=== PATIENT | female | born 1980 | race Caucasian/White ===

== ENCOUNTER → 2017-06-21 16:33 | Outpatient (CLI) | payer BC, SELFPAY ==
[2017-06-21 17:21] LABS: Hematocrit 33.8 % (37-47); Hemoglobin 11.2 g/dl (12.0-15.0); Mean Corp Hgb Conc 33.1 g/gl (32-36); Mean Corpuscular Hgb 30.9 pg (27.0-32.0); Mean Corpuscular Volume 93.1 fL (81-99); Mean Platelet Vol. 9.4 fl (6.2-12.0); Platelet Count 202 K/mm3 (150-450); Red Blood Count 3.63 M/mm3 (4.2-5.4); White Blood Count 9.2 K/mm3 (4.4-11.0)
[2017-06-21 17:22] LABS: Scan Indicated on CBC? Y/N NO
[2017-06-21 17:55] LABS: Glucose Challenge Gest 1H 50g 113 mg/dL (70-140)
== END ==
PROVIDERS: Visit Provider Obstetrics & Gynecology
DX: Z34.83 Encounter for supervision of other normal pregnancy, third trimester (principal)
CPT/HCPCS: 36415; 82950; 85027

== ENCOUNTER → 2017-08-18 10:39 | Outpatient (CLI) | payer BC, SELFPAY ==
[2017-08-18 11:12] LABS: Hematocrit 34.5 % (37-47); Hemoglobin 11.8 g/dl (12.0-15.0); Mean Corp Hgb Conc 34.2 g/gl (32-36); Mean Corpuscular Volume 93.5 fL (81-99); Platelet Count 193 K/mm3 (150-450); RBC Distribution Width CV 12.8 % (11.6-14.6); RBC Distribution Width SD 42.5 fl (35.1-43.9); Red Blood Count 3.69 M/mm3 (4.2-5.4); Scan Indicated on CBC? Y/N NO; White Blood Count 5.8 K/mm3 (4.4-11.0)
[2017-08-18 11:24] LABS: AST(SGOT) 29 U/L (15-37); Alanine Aminotransfer ALT/SGPT 35 U/L (13-56); Albumin, Serum 2.5 g/dL (3.2-5.0); Alkaline Phosphatase 100 U/L (45-117); Bilirubin, Direct 0.06 mg/dL (0.00-0.30); Globulin 4.1 g/dL (2.2-4.2); Protein, Total 6.6 g/dL (6.4-8.2)
[2017-08-18 14:04] LABS: Group B Strep DNA By PCR Negative (Negative); Internal Control PASS; Probe Check PASS; Specimen Processing Control PASS
== END ==
PROVIDERS: Visit Provider Obstetrics & Gynecology
DX: Z36.85 Encounter for antenatal screening for Streptococcus B (principal); O26.899 Other specified pregnancy related conditions, unspecified trimester; R82.90 Unspecified abnormal findings in urine; Z3A.00 Weeks of gestation of pregnancy not specified
CPT/HCPCS: 36415; 80076; 85027; 87081; 87653

== ENCOUNTER 2017-08-30 00:41 | Inpatient (IN) | payer BC, SELFPAY ==
[2017-08-30 00:40] LABS: ROM Internal Control Test YES-OK TO RESULT pt. (Internal QC); ROM Patient Test POSITIVE (Negative)
[2017-08-30] MEDS: Lactated Ringers 1,000 ML 50 ML IV ×3 (01:10→06:21)
[2017-08-30 01:25] LABS: Hematocrit 34.7 % (37-47); Hemoglobin 11.7 g/dl (12.0-15.0); Mean Corp Hgb Conc 33.7 g/gl (32-36); Mean Corpuscular Hgb 31.3 pg (27.0-32.0); Mean Corpuscular Volume 92.8 fL (81-99); Mean Platelet Vol. 9.9 fl (6.2-12.0); Platelet Count 194 K/mm3 (150-450); RBC Distribution Width CV 12.8 % (11.6-14.6); RBC Distribution Width SD 43.4 fl (35.1-43.9); Red Blood Count 3.74 M/mm3 (4.2-5.4); White Blood Count 7.1 K/mm3 (4.4-11.0)
[2017-08-30 01:26] LABS: Scan Indicated on CBC? Y/N NO
[2017-08-30 01:28] VITALS: BMI 29.3
[2017-08-30] MEDS: fentaNYL-bupivacaine (epidural) 100 ML BAG EPIDURAL ×2 (03:55→08:30)
[2017-08-30] MEDS: Ondansetron 4 MG/2 ML Vial IV (05:11)
--- NOTE | 2017-08-30 07:51 | PCM.PN.BLA ---
Progress Note 37 6/7 wk with SROM. Comfortable w/ epidural. AVSS no pitocin given EFM 130-140s avg/ mod variability. Accels noted UCs very irregular CX: /-2 (dilation called same as RN exam) patiño bulb pushing down inferior to VTX. (pushed back, reduced superior to VTX) AROM of forebag, clear mod amt A/P: 37 6/7 wk SROM. Slow progress. comfortable with epidural. Category I tracing. AROM of forebag. Pitocin prn if continued very irregular UCs. Anticipate
[2017-08-30] MEDS: Oxytocin 30 units/NS 500 ml 30 UNITS/500 ML IV.SOLN IV (08:03)
[2017-08-30] MEDS: Oxytocin 30 units/NS 500 ml 30 UNITS/500 ML IV.SOLN 334 UNITS IV (09:34)
--- NOTE | 2017-08-30 09:53 | PCM.OB.VAG ---
Vaginal Delivery Maternal Presentation: Spontaneous Rupture of Membranes 37 6/7 wk SROM Method of Induction: Pitocin, Amniotomy Amniotic Membrane Rupture Type: Spontaneous at home Amniotic Fluid Description: Clear Final STACIE: 09/14/17 Gestational age: 37 Weeks and 6 Days Date of Procedure: 08/30/17 Pre-Operative Diagnosis: 37 6/7 wk SPROM Post-Operative Diagnosis: Same Surgery/ Procedure Performed: Spontaneous Vaginal Delivery Type of Anesthesia: Epidural Presentation: Vertex, WILLY Placental Delivery Description: Spontaneous, Expressed Placenta Disposition: [facility] Cord Vessel Description: 3 Vessels Cord Entanglement: None A gender: Female (1 minute): 8 (5 minute): 9 Laceration: Midline, Perineal Extension/lac, Vaginal Extension/lac, 2nd degree Medications given after delivery: IV Pitocin Complications: None
--- NOTE | 2017-08-30 09:56 | PCM.DCVAG ---
Discharge Diet: No Restrictions Discharge Activity: May Shower, May Take a Tub Bath May resume sexual activity in: 4-6 weeks Additional Instructions: If you experience any of the following, contact your healthcare provider. Bleeding that soaks a pad every hour for 2 hours Fever 100.4 or higher Unrelieved abdominal pain Inability to urinate or burning while urinating). Visual changes Severe headache Flu-like symptoms Pain or redness in one of both of your breasts Pain, warmth, tenderness or swelling in your legs, especially the calf area Frequent nausea and vomiting Symptoms of depression or anxiety If you experience any of the following, call 911 or go to the nearest Emergency Room. Chest pain Problems breathing Seizure activity Partial or complete paralysis of a body part, slurred speech, weakness or drooping of the face, or a sudden inability to walk or hold your balance Allergies/Adverse Reactions: Allergies Penicillins Allergy (Verified 08/30/17 01:55) Hives Medications to take at Discharge biotin 1 mg capsule 1 mg PO QDAY 03/03/17 lactobacillus combination no.8 3 billion cell capsule 3,000 mmu cells PO QDAY 03/03/17 loratadine 10 mg tablet 10 mg PO QDAY PRN 03/03/17 vitamin,calcium,zblmvcvx-cblt-vpren acid tablet 1 tab PO QDAY 03/03/17 Please Follow Up With: Alberta Conrad MD - [phone] When: Call to make an appointment with your doctor in 6 weeks. Primary Care Physician: Care Physician,No Primary [Primary Care Provider] - Test Results:
--- NOTE | 2017-08-30 09:58 | DCINST_ITS ---
Discharge Diet: No Restrictions Discharge Activity: May Shower, May Take a Tub Bath May resume sexual activity in: 4-6 weeks Additional Instructions: If you experience any of the following, contact your healthcare provider. * Bleeding that soaks a pad every hour for 2 hours * Fever 100.4 or higher * Unrelieved abdominal pain * Inability to urinate or burning while urinating). * Visual changes * Severe headache * Flu-like symptoms * Pain or redness in one of both of your breasts * Pain, warmth, tenderness or swelling in your legs, especially the calf area * Frequent nausea and vomiting * Symptoms of depression or anxiety If you experience any of the following, call 911 or go to the nearest Emergency Room. * Chest pain * Problems breathing * Seizure activity * Partial or complete paralysis of a body part, slurred speech, weakness or drooping of the face, or a sudden inability to walk or hold your balance Allergies/Adverse Reactions: Allergies Penicillins Allergy (Verified 08/30/17 01:55) Hives Medications to take at Discharge biotin 1 mg capsule 1 mg PO QDAY 03/03/17 lactobacillus combination no.8 3 billion cell capsule 3,000 mmu cells PO QDAY loratadine 10 mg tablet 10 mg PO QDAY PRN 03/03/17 vitamin,calcium,luczqgnn-edtv-fhtym acid tablet 1 tab PO QDAY 03/03/17 Please Follow Up With: Alberta Conrad MD - [phone] When: Call to make an appointment with your doctor in 6 weeks. Primary Care Physician: Care Physician,No Primary [Primary Care Provider] - Test Results:
[2017-08-30] MEDS: Oxytocin 30 units/NS 500 ml 30 UNITS/500 ML IV.SOLN 167 UNITS IV (10:36)
[2017-08-30] MEDS: Prenatal Vits Tablet 1 TABLET PO (11:26)
[2017-08-30 11:28] VITALS: BP 113/56; PULSE 85; RESP 18; TEMP 37.1
[2017-08-30] MEDS: Ibuprofen 600 MG Tablet PO (11:29)
[2017-08-30 16:24] VITALS: BP 106/67; PULSE 69; RESP 16; TEMP 36.9
[2017-08-30 19:58] VITALS: BP 93/52; PULSE 70; RESP 16; TEMP 36.3; O2SAT 99
[2017-08-31 00:15] VITALS: BP 132/69; PULSE 68; RESP 16; TEMP 36.3
[2017-08-31 04:30] VITALS: BP 94/68; PULSE 64; RESP 16; TEMP 36.3
[2017-08-31 08:00] VITALS: BP 117/73; PULSE 71; RESP 16; TEMP 36.6
--- NOTE | 2017-08-31 08:34 | PCM.PN.OB ---
Subjective: POD#1 . GBS negative Pt here since just prior to [place] Sun night due to prolonged SROM and positive ROM test. Would like to go home later today if possible. Baby doing well. - Physical Exam General: Alert, Oriented x3, Cooperative, No apparent distress HEENT: Atraumatic, PERRLA Neck: Supple Abdomen: Soft - umbilical hernia noted (soft, NT, reduces), and fundus firm NT at approx 1 cm inferior to umbilicus. Neurological: Cranial nerves II-XII grossly intact Psych/Mental Status: Normal Affect Vital Signs Temp Pulse Resp BP Pulse Ox 97.4 F L 64 16 94/68 99 08/31/17 04:30 08/31/17 04:30 08/31/17 04:30 08/31/17 04:30 08/30/17 19:58 Oxygen Delivery Method Room Air Weight: 84.9 kg Body Mass Index (BMI) 29.3 Intake and Output for Last 24 Hours 08/29/17 08/30/17 08/31/17 23:59 23:59 23:59 Intake Total 3828 / 3828 Output Total 1850 / 1850 Balance 1977 / 1977 Medical Necessity - Tobacco Use Smoking Status: Never smoker Assessment/Plan All Active Problems (Last Reviewed 03/03/17 @ 16:08 by Lolis Ellington) S/P colonoscopy (Acute) S/P wisdom tooth extraction (Acute) Umbilical hernia (Acute) (Acute) Back problem (Acute) PPD#1 after prolonged SPROM at 37 6/7 wk Stable . Dischg home. RTO in 6 wk for pp check, prn sooner.
[2017-08-31 14:40] VITALS: BP 112/62; PULSE 78; RESP 18; TEMP 36.7
[2017-08-31] MEDS: Senna/Docusate Sodium 1 Tablet PO (14:45)
[2017-08-31] MEDS: Prenatal Vits Tablet 1 TABLET PO (14:47)
[2017-08-31] MEDS: Ibuprofen 600 MG Tablet PO (15:25)
[2017-08-31 19:53] VITALS: BP 131/72; PULSE 80; RESP 16; TEMP 36.9
[2017-09-01 02:00] VITALS: BP 115/66; PULSE 80; RESP 16; TEMP 36.7
--- NOTE | 2017-09-01 03:15 | NURSING ---
Taking over pt care at this time.
--- NOTE | 2017-09-01 07:13 | PCM.PN.OB ---
Subjective: PPD#2 Doing well. Breast feeding, up most of night and baby has slept twice for two hrs at a time. Ready to go home today. Objective: Sitting up in bed, holding sleeping baby - Physical Exam General: Alert, Oriented x3, Cooperative, No apparent distress Neurological: Cranial nerves II-XII grossly intact Psych/Mental Status: Normal Affect Vital Signs Temp Pulse Resp BP Pulse Ox 98.1 F 80 16 115/66 99 09/01/17 02:00 09/01/17 02:00 09/01/17 02:00 09/01/17 02:00 08/30/17 19:58 Oxygen Delivery Method Room Air Weight: 84.9 kg Body Mass Index (BMI) 29.3 Intake and Output for Last 24 Hours 08/30/17 08/31/17 09/01/17 23:59 23:59 23:59 Intake Total 3828 / 3828 Output Total 1850 / 1850 Balance 1977 / 1977 Medical Necessity - Tobacco Use Smoking Status: Never smoker Assessment/Plan All Active Problems (Last Reviewed 03/03/17 @ 16:08 by Lolis Ellington) S/P colonoscopy (Acute) S/P wisdom tooth extraction (Acute) Umbilical hernia (Acute) (Acute) Back problem (Acute) PPD# after prolonged SPROM at 37 6/7 wk Stable . Dischg home.
[2017-09-01 08:15] VITALS: BP 119/60; PULSE 83; RESP 16; TEMP 36.7; O2SAT 97
== END 2017-09-01 11:15 | disposition home or self-care (01) | DRG 775 ==
LOC: WPOUT 00:45
PROVIDERS: Obstetrics & Gynecology; Admitting Provider Obstetrics & Gynecology; Visit Provider Obstetrics & Gynecology
DX: O42.12 Full-term premature rupture of membranes, onset of labor more than 24 hours following rupture (principal); O70.1 Second degree perineal laceration during delivery; O99.52 Diseases of the respiratory system complicating childbirth; J30.2 Other seasonal allergic rhinitis; Z3A.37 37 weeks gestation of pregnancy; Z37.0 Single live birth
CPT/HCPCS: 36415; 59025; 59050; 84112; 85027; 86850; 86900; 99218; J7120; G0378; J2405

== ENCOUNTER 2017-10-07 12:27 | Day surgery (SDC) | payer BC, SELFPAY ==
[2017-10-07] VITALS (7 sets, daily range): BP systolic 107–129; BP diastolic 64–88; PULSE 65–89; RESP 14–18; TEMP 36.6–37.6; O2SAT 97–100; BMI 25.7
[2017-10-07 13:05] LABS: Hematocrit 40.3 % (37-47); Hemoglobin 13.6 g/dl (12.0-15.0); Mean Corp Hgb Conc 33.7 g/gl (32-36); Mean Corpuscular Hgb 30.6 pg (27.0-32.0); Mean Corpuscular Volume 90.8 fL (81-99); Mean Platelet Vol. 9.5 fl (6.2-12.0); Platelet Count 190 K/mm3 (150-450); RBC Distribution Width CV 11.9 % (11.6-14.6); RBC Distribution Width SD 39.2 fl (35.1-43.9); Red Blood Count 4.44 M/mm3 (4.2-5.4); White Blood Count 6.2 K/mm3 (4.4-11.0)
[2017-10-07 13:07] LABS: Scan Indicated on CBC? Y/N NO
[2017-10-07 13:11] LABS: Anion Gap 5 (5-15); BUN 17 mg/dL (7-18); Calcium,Total 8.9 mg/dL (8.5-10.1); Chloride 108 mmol/L (98-107); Creatinine, Serum 0.81 mg/dL (0.55-1.02); EST Glomerular Filtration Rate 85 mL/min (>60); Est Glom Filt Rate - Afr Amer 103 mL/min (>60); Estimated Creatinine Clearance 94.27 ml/min; Glucose 84 mg/dL (74-106); Potassium 4.1 mmol/L (3.5-5.1); Sodium Level 139 mmol/L (136-145)
[2017-10-07 13:20] LABS: Internal QC Validated? YES +Cl - CLEAR BKGD; Pregnancy, Urine Negative Negative
[2017-10-07] MEDS: Bupivacaine 0.5% PF 10 ML VIAL (13:23)
--- NOTE | 2017-10-07 14:00 | HERN_PTH ---
PATIENT: CINTHIA LEWIS LOC: [facility] U#:[id number] AGE/SX: 37/F ROOM: RE10/07/[address]: Dr. Walter Lawrence MD : 1980 BED: DIS: 10/07/2017 SPEC #: [id number] RECD: 10/08/17 10:41 STATUS: JESSICA RESimba #: [id number] АЛЕКСАНДР: 10/07/17 14:[address]: Walter Lawrence DEPT: SURGICAL PATHOLOGY RECD BY: Raúl Hughes ENTERED: 10/08/17 11:49 SP TYPE: Hernia OTHR DR: No Primary Care Phys Tissues: HERNIA Procedures: Surgery Specimen Level II HEADER OPERATION: Hernia, umbilical repair with mesh PRE-OP DIAGNOSIS: Umbilical hernia TISSUE SUBMITTED: Hernia sac contents MICROSCOPIC DIAGNOSIS Soft tissue of umbilical region, excision: Fibrofatty tissue consistent with hernia sac. AM:watson 10/11/17 MICROSCOPIC DESCRIPTION Slides are reviewed. GROSS DESCRIPTION Received in fixative is one container labeled with the patient's name and designated hernia sac contents. The specimen consists of a piece of yellow adipose tissue measuring 4 x 2.5 x 1.5 cm. Sections do not reveal any mass lesion. Watch Supervisor sections are submitted in one cassette. / SJ:rg 10/08/17 TC:5 CPT: 06758
--- NOTE | 2017-10-07 14:47 | DCINST_ITS ---
Discharge Diet: Light diet - advance as tolerated - if you have questions about your diet instructions, please talk to you doctor. Discharge Activity: May Not Drive - for 1 week or while taking narcotic pain medicine. May shower in (days): 1 Lifting Restrictions: 10 pounds Call your doctor if your incision/area has: Continuous Slow Oozing, Sudden Increased Bleeding, Increased Pain/ Swelling, Increased Redness, Foul Smelling Discharge Call your doctor if you observe: Fever of 101 or Higher Suture Line Care: Avoid Pulling/Pushing, Avoid Pinching/Bending Additional Dressing/Incision Instructions:: Change or remove dressing in 4 days. Leave steri-strips in place for 1 week. Allergies/Adverse Reactions: Allergies Penicillins Allergy (Verified 10/07/17 12:49) Hives Medications to take at Discharge lactobacillus combination no.8 3 billion cell capsule 1 cap PO QDAY 03/03/17 loratadine 10 mg tablet 10 mg PO QDAY PRN 03/03/17 vitamin,calcium,lqxibyct-ftci-apeqn acid tablet 1 tab PO QDAY 03/03/17 Hydrocodone Bitart/Apap 5-325 [[place] 5MG-325MG] 1 tablet PO Q6H PRN PRN 3 Days # 8 tablet 10/07/17 The following prescriptions were given: Hydrocodone Bitart/Apap 5-325 [[place] 5MG-325MG] 1 tablet PO Q6H PRN PRN 3 Days # 8 tablet PRN Reason: Pain Primary Care Physician: Care Physician,No Primary [Primary Care Provider] - Test Results: Test results from this visit will be discussed in further detail at your follow- up appointment, if applicable. Please Follow Up With: Walter Lawrence MD - [phone] When: Call to make an appointment to be seen in about 10 days.
--- NOTE | 2017-10-07 15:15 | PCM.OPRPT ---
Problem List (1) Umbilical hernia Status: Acute Qualifiers: Obstruction and gangrene presence: without obstruction or gangrene Report of Operation Date of Procedure: 10/07/17 Pre-Operative Diagnosis: Umbilical hernia Post-Operative Diagnosis: Umbilical hernia Surgery/Procedure Performed:: Umbilical herniorrhaphy with [address] mesh. Reference #[id number]. Lot number [employer] [id number]. Expiry date 07/27/2019 Description of Surgical Findings:: Timeout and informed consent was obtained. 37-year-old female was taken the operating. She was placed upon the table. She underwent general endotracheal intubation anesthesia. Clindamycin 900 mg given intravenous preoperatively because of penicillin allergy. The abdomen was sterilely prepped draped. Ioban draping was utilized as well. A curvilinear incision was made in the inferior aspect of the umbilicus. Sharp and blunt dissection was complete used to completely release the umbilical hernia from the umbilical skin. Circumferential dissection was performed. The hernia sac was then excised using electrocautery and complete hemostasis was intact. The defect area measured approximately 3 x 3 cm. I waited a 8 cm diameter ventral X ST mesh inserted easily. The tails were secured laterally with interrupted 0 Nurolon. The fascia was approximated midline with interrupted 0 Nurolon with sutures to just grab the mesh at that central portion. That fascia was then approximated nicely. There appeared to be very nice positional lie of the mesh and sutures. The fascia and subcu dermal tissues were anesthetized with 0.5% Marcaine. Total 30 cc was used. The skin edges were approximated with interrupted 4 Monocryl subdermal stitches. Steri-Strips Telfa OpSite dressing cottonball pressure dressing applied. Sponge and instrument and needle counts were reported to the surgeon to be correct. Blood loss minimal. Specimens hernia sac and contents. Drains none. Blood loss minimal Walter Lawrence M.D., F.A.C.S. Type of Anesthesia:: General Anesthesiologist: Henrique Pascal
--- NOTE | 2017-10-07 15:18 | OP.PCM_ITS ---
Problem List (1) Umbilical hernia Status: Acute Qualifiers: Obstruction and gangrene presence: without obstruction or gangrene Report of Operation Date of Procedure: 10/07/17 Pre-Operative Diagnosis: Umbilical hernia Post-Operative Diagnosis: Umbilical hernia Surgery/Procedure Performed:: Umbilical herniorrhaphy with [address] mesh. Reference #[id number]. Lot number [employer] [id number]. Expiry date 07/27/2019 Description of Surgical Findings:: Timeout and informed consent was obtained. 37-year-old female was taken the operating. She was placed upon the table. She underwent general endotracheal intubation anesthesia. Clindamycin 900 mg given intravenous preoperatively because of penicillin allergy. The abdomen was sterilely prepped draped. Ioban draping was utilized as well. A curvilinear incision was made in the inferior aspect of the umbilicus. Sharp and blunt dissection was complete used to completely release the umbilical hernia from the umbilical skin. Circumferential dissection was performed. The hernia sac was then excised using electrocautery and complete hemostasis was intact. The defect area measured approximately 3 x 3 cm. I waited a 8 cm diameter ventral X ST mesh inserted easily. The tails were secured laterally with interrupted 0 Nurolon. The fascia was approximated midline with interrupted 0 Nurolon with sutures to just grab the mesh at that central portion. That fascia was then approximated nicely. There appeared to be very nice positional lie of the mesh and sutures. The fascia and subcu dermal tissues were anesthetized with 0.5% Marcaine. Total 30 cc was used. The skin edges were approximated with interrupted 4 Monocryl subdermal stitches. Steri-Strips Telfa OpSite dressing cottonball pressure dressing applied. Sponge and instrument and needle counts were reported to the surgeon to be correct. Blood loss minimal. Specimens hernia sac and contents. Drains none. Blood loss minimal Walter Lawrence M.D., F.A.C.S. Type of Anesthesia:: General Anesthesiologist: Henrique Pascal
[2017-10-07] MEDS: HYDROcodone Bitartrate/Apap 5/325 Tablet PO (17:10)
== END 2017-10-07 18:20 | disposition home or self-care (01) ==
LOC: SDC 12:28 → AC 12:29
PROVIDERS: Visit Provider Surgery
PROC: 0WQF4ZZ Repair Abdominal Wall, Percutaneous Endoscopic Approach (ICD-10-PCS; CPT 49585; principal; 2017-10-07 13:40)
DX: K42.9 Umbilical hernia without obstruction or gangrene (principal)
CPT/HCPCS: 49585; 80048; 81025; 85027; 88302; 93005; J7120; C1781; J2405

== ENCOUNTER → 2017-10-22 17:04 | Outpatient (CLI) | payer BC, SELFPAY ==
[2017-10-27 15:01] LABS: HPV Reflexed? NOT INDICATED
== END ==
PROVIDERS: Visit Provider Obstetrics & Gynecology
DX: Z12.4 Encounter for screening for malignant neoplasm of cervix (principal)
CPT/HCPCS: 88175; G0145

== ENCOUNTER → 2018-02-09 16:19 | Outpatient (CLI) | payer BC, SELFPAY ==
[2018-02-09 17:48] LABS: CRP < 2.90 mg/L (0.0-3.0)
[2018-02-11 16:09] LABS: Endomysial Antibody IgA Negative (Negative)
[2018-02-14 11:44] LABS: Immunoglobulin A 152 mg/dL (87-352); t-Transglutaminase IgA <2 U/mL (0-3)
--- OUTSIDE RECORDS SUMMARY | 2018-03-28 21:55 | XMS RPT_ITS ---
:1980 Author Organization OHIP Support Name Relationship Address Phone MAIKEL HENDRICKSON Unavailable [address] + [place] [address] WALTER LEWIS Unavailable [address] + [place] [address] [employer] Unavailable [address] + [place] [address] MAIKEL HENDRICKSON Unavailable [address] + [place] [address] WALTER LEWIS Unavailable [address] + [place] [address] [employer] Unavailable [address] + [place] [address] MAIKEL HENDRICKSON Unavailable [address] + [place] [address] WALTER LEWIS Unavailable [address] + [place] [address] [employer] Unavailable [address] + [place] [address] MAIKEL HENDRICKSON Unavailable [address] + [place] [address] WALTER LEWIS Unavailable [address] + [place] [address] [employer] Unavailable [address] + [place] [address] MAIKEL HENDRICKSON Unavailable [address] + [place] [address] WALTER LEWIS Unavailable [address] + [place] [address] [employer] Unavailable [address] + [place] [address] HENDRICKSON, MAIKEL Unavailable [address] + [place] [address] WALTER LEWIS Unavailable [address] + [place] [address] [employer] Unavailable [address] + [place] [address] Hendrickson, Maikel Unavailable [address] + [place] [address] ERNESTINE LEWISNETH Unavailable [address] + [place] [address] [employer] Unavailable [address] + [place] [address] HENDRICKSON, MAIKEL Unavailable [address] + [place] [address] WALTER LEWIS Unavailable [address] + [place] [address] [employer] Unavailable [address] + [place] [address] ERNESTINE LEWISNETH Unavailable [address] + [place] [address] [employer] Unavailable [address] + [place] [address] WALTER LEWIS Unavailable [address] + [place] [address] [employer] Unavailable [address] + [place] [address] Care Team Providers Name Role Phone Robert Harrell Attending Unavailable Robert Harrell Referring Unavailable Primay Care Physicia, No Primary Care Unavailable Alberta Conrad Attending Unavailable Primay Care Physicia, No Primary Care Unavailable Alberta Conrad Attending Unavailable Primay Care Physicia, No Primary Care Unavailable Primay Care Physicia, No Primary Care Unavailable Alberta Conrad Admitting Unavailable Alberta Conrad Attending Unavailable Alberta Conrad Referring Unavailable Walter Lawrence Attending Unavailable Alberta Conrad Referring Unavailable Cebul, Walter Attending Unavailable Primay Care Physicia, No Primary Care Unavailable Cebul, Walter Referring Unavailable Cebul, Walter Attending Unavailable Cebul, Walter Referring Unavailable Primay Care Physicia, No Primary Care Unavailable Cebul, Walter Consulting Unavailable Ryann Thurston PA-C Attending Unavailable Primay Care Physicia, No Referring Unavailable Primay Care Physicia, No Primary Care Unavailable Alberta Conrad Attending Unavailable Primay Care Physicia, No Primary Care Unavailable Audi Glover Attending Unavailable Cebul, Walter Referring Unavailable PROBLEMS PROBLEMS DATE TYPE CONDITION / CODE ATTENDING STATUS SOURCE 10/22/2017 Unknown Z12.4 - Encounter Alberta Conrad Active [place] for screening for Community malignant neoplasm Hospital of cervix / Repository Z12.4(ICD-10) 12/31/2017 Unknown K42.9 - Umbilical CebuWalter angulo Active [place] hernia without Community obstruction or Hospital gangrene / Repository K42.9(ICD-10) 12/31/2017 Unknown G89.18 - Other acute CeWalter napoles Active [place] postprocedural pain Community / G89.18(ICD-10) Hospital Repository 12/31/2017 Unknown Z01.810 - Encounter Audi Glover Active [facility] for preprocedural [facility] examination / Repository Z01.810(ICD-10) 11/18/2017 Unknown Z34.83 - Encounter Alberta Conrad Active [facility] for supervision of Community other normal Hospital , third Repository trimester / Z34.83(ICD-10) 08/18/2017 Unknown Z36.85 - Encounter Alberta Conrad Active [facility] for [facility] screening for Hospital Streptococcus B / Repository Z36.85(ICD-10) 08/18/2017 Unknown R82.90 - Unspecified Alberta Conrad Active [facility] abnormal findings in Community urine / Hospital R82.90(ICD-10) Repository PROCEDURES PROCEDURES No Procedure Records FoundRESULTS RESULTS CRP Collected: 02/09/2018 Status: F Source: [place] 4:22 PM [facility] TYPE CODE TESTS RESULT OUT OF RANGE REFERENCE UNITS LAB L501.6710 0.0-3.0 mg/L Normal < 2.90 C-REACTIVE PROT Result Comment: C-Reactive Protein (CRP) provides useful information for the diagnosis, therapy and monitoring of inflammatory processes and associated diseases. For the evaluation of Relative Risk for Cardiovascular Disease, a High Sensitivity CRP (HSCRP) should be ordered. Performed By: #### L501.6710 #### [facility] [address] [place], [address] CELIAC DISEASE Collected: 02/09/2018 Status: F Source: [place] PROFILE 4:22 PM [facility] REPOSITORY TYPE CODE TESTS RESULT OUT OF RANGE REFERENCE UNITS LAB L3200.1400 87-352 mg/dL Normal IMMUNO A 152 Result Comment: Performed at: - [facility] [id number] Classified Copy Control Clerk: Robert Amato PhD, Phone: [phone] LAB L3330.8896 0-3 U/mL Normal tTG IGA <2 Result Comment: Negative 0 - 3 Weak Positive 4 - 10 Positive >10 Tissue Transglutaminase (tTG) has been identified as the endomysial antigen. Studies have demonstr- ated that endomysial IgA antibodies have over 99% specificity for gluten sensitive enteropathy. LAB L3410.2977 Negative Normal ENDOMYSIAL IGA Negative Performed By: #### L3410.2400 #### [facility] (refer to report for specific site) refer to report for address and phone number PAP I-G W/RFX HRHPV Collected: 10/22/2017 Status: F Source: [place] 11:15 AM [facility] REPOSITORY Order Comment: CYTOLOGY INFORMATION: - CLINICAL INFORMATION: - DATE LMP/MENOPAUSE: NURSING PTHLMPMEN] - COLLECTION VIAL: Thin Prep Vial - COMPOUNDING AND FINISHING SUPERVISOR SOURCE: CERVICAL/ENDOCERVICAL - COLLECTION TECHNIQUE: BRUSH/SPATULA Specimen Comment: [id number] Specimen Comment: Source.............Cervix;Endocervix Specimen Comment: Dates / Results....LMP/MENOPAUSE: NURSING Specimen Comment: Other..............Lactating Specimen Comment: No. of containers..01 ThinPrep Vial TYPE CODE TESTS RESULT OUT OF RANGE REFERENCE UNITS LAB L7400.0800 . Normal DIAGN Comment Result Comment: NEGATIVE FOR INTRAEPITHELIAL LESION AND MALIGNANCY. LAB L7400.0900 . Normal ADEQ Comment Result Comment: Satisfactory for evaluation. Endocervical and/or squamous metaplastic cells (endocervical component) are present. LAB L7400.1400 . Normal PERFORM Comment Result Comment: Amy Pacheco, Director Of Neurology (ASCP) LAB L7400.2575 . Normal TEST METHOD Comment Result Comment: This liquid based ThinPrep(R) pap test was screened with the use of an image guided system. LAB L7400.2600 . Normal . COMM LAB L7400.2700 . Normal PAPSMR Comment Result Comment: The Pap smear is a screening test designed to aid in the detection of premalignant and malignant conditions of the uterine cervix. It is not a diagnostic procedure and should not be used as the sole means of detecting cervical cancer. Both false-positive and false-negative reports do occur. LAB L7400.2800 . Normal HPV RFLX Comment Result Comment: The HPV DNA reflex criteria were not met with this specimen result therefore, no HPV testing was performed. Performed at: [facility] [id number] Classified Copy Control Clerk: Keyla Hernández MD, Phone: [phone] Performed By: #### L7400.0350 #### [facility] (refer to report for specific site) refer to report for address and phone number SURGERY VISIT REPORT Observed: 10/19/2017 Status: F Source: [place] 1:40 PM [facility] REPOSITORY [facility] [address] [place] [address] [address] [place] [address] OFFICE VISIT Date of Service: 10/19/17 MR#: [id number] Acct: [id number] Name: CINTHIA LEWIS Rep #: [id number] : 1980 Provider: Ryann Thurston PA-C Age/Sex: 37/F Location: [facility] Status: Signed Intake Intake Visit Reasons: Hernia Surgery 10/07 Chief Complaint: umbilical hernia Allergies Penicillins Allergy (Verified 10/07/17 12:49) Hives Medications lactobacillus combination no.8 3 billion cell capsule 1 cap PO QDAY 03/03/17 [History Confirmed 10/07/17] loratadine 10 mg tablet 10 mg PO QDAY PRN 03/03/17 [History Confirmed 10/07/17] vitamin,calcium,usgwkziy-hsek-nvgbp acid tablet 1 tab PO QDAY 03/03/17 [History Confirmed 10/07/17] Hydrocodone Bitart/Apap 5-325 [[place] 5MG-325MG] 1 tab PO Q6H PRN PRN 3 Days #8 tab 10/07/17 [Rx] Subjective Details: Patient is a 37 y/o female I am following for umbilical hernia. Dr. Lawrence performed an umbilical hernia repair with mesh on 10/07/17. Patient tolerated the procedure well. Patient notes minimal amount of umbilical incisional discomfort. She denies nausea, vomiting, fever. She notes her appetite has returned to normal. She notes bowel habits have returned to normal. Pathology demonstrated fibrofatty tissue consistent with hernia sac. Objective Details: Abdomen- soft, nontender, positive bowel sounds. Incision c/d/i. No erythema or infection noted. Assessment AND Plan Problems 1. Umbilical hernia without obstruction and without gangrene K42.9 Plan - Recommend no lifting greater than 20 pounds for 6 weeks from surgery - Follow-up as needed - Copies of her [facility] paperwork was given to the patient Coding Level of Care Code Global Post Op Diagnoses Umbilical hernia without obstruction and without gangrene K42.9 Obstruction and gangrene presence: without obstruction or gangrene 10/19/17 1340 <Electronically signed by Ryann Thurston PA-C> Date Ryann Thurston PA-C Cosigner Signature: Date (if applicable) CC: 12 LEAD ELECTROCARDIOGRAM Observed: 10/11/2017 Status: F Source: [place] 3:56 PM [facility] REPOSITORY [facility] [address] [place] [address] 12 Lead EKG 10/07/17 1257 MR#: [id number] Acct: [id number] Name: CINTHIA LEWIS Rep #: [id number] : 1980 37 From: Audi Glover MD Attending Dr: Walter Lawrence MD Status: [facility] Ordering Dr: Walter Lawrence MD Date: 10/07/17 Location: [facility] Sex: F C Admitted: Test Reason : PRE OP Blood Pressure : / mmHG Vent. Rate : 064 BPM Atrial Rate : 064 BPM P-R Int : 114 ms QRS Dur : 082 ms QT Int : 428 ms P-R-T Axes : 020 071 056 degrees QTc Int : 441 ms Normal sinus rhythm Normal ECG No previous ECGs available Confirmed by AUDI GLOVER MD ([id number]), photo editor ALEKSEY RAWLS ([id number]) on 10/11/2017 3:56:26 PM Referred By: Walter Lawrence Confirmed By:AUDI GLOVER MD 10/11/17 1556 Date Audi Glover MD CC: No Primary Care Physician; Walter Lawrence MD Signed DISCHARGE INSTRUCTION Observed: 10/08/2017 Status: F Source: [place] 6:06 AM [facility] REPOSITORY [facility] Medical Records Department [address] [place] [address] Instructions for Home/Discharge Instructions 10/07/17 1447 MR#: [id number] Acct: [id number] Name: CINTHIA LEWIS Rep #: [id number] : 1980 37 From: Walter Lawrence MD PCP: Care Physician, No Primary Status: DEP [facility] Discharge Diet: Light diet - advance as tolerated - if you have questions about your diet instructions, please talk to you doctor. Discharge Activity: May Not Drive - for 1 week or while taking narcotic pain medicine. May shower in (days): 1 Lifting Restrictions: 10 pounds Call your doctor if your incision/area has: Continuous Slow Oozing, Sudden Increased Bleeding, Increased Pain/ Swelling, Increased Redness, Foul Smelling Discharge Call your doctor if you observe: Fever of 101 or Higher Suture Line Care: Avoid Pulling/Pushing, Avoid Pinching/Bending Additional Dressing/Incision Instructions:: Change or remove dressing in 4 days. Leave steri-strips in place for 1 week. Allergies/Adverse Reactions: Allergies Penicillins Allergy (Verified 10/07/17 12:49) Hives Medications to take at Discharge lactobacillus combination no.8 3 billion cell capsule 1 cap PO QDAY 03/03/17 loratadine 10 mg tablet 10 mg PO QDAY PRN 03/03/17 vitamin,calcium,abmweesb-wwui-nowag acid tablet 1 tab PO QDAY 03/03/17 Hydrocodone Bitart/Apap 5-325 [[place] 5MG-325MG] 1 tablet PO Q6H PRN PRN 3 Days #8 tablet 10/07/17 The following prescriptions were given: Hydrocodone Bitart/Apap 5-325 [[place] 5MG-325MG] 1 tablet PO Q6H PRN PRN 3 Days #8 tablet PRN Reason: Pain Primary Care Physician: Care Physician,No Primary [Primary Care Provider] - Test Results: Test results from this visit will be discussed in further detail at your follow-up appointment, if applicable. Please Follow Up With: Walter Lawrence MD - [phone] When: Call to make an appointment to be seen in about 10 days. 10/08/17 0606 <Electronically signed by Walter Lawrence MD> Date Walter Lawrence MD CC: No Primary Care Physician OPERATIVE REPORT Observed: 10/07/2017 Status: F Source: [place] 3:18 PM [facility] REPOSITORY [facility] Medical Records Department [address] [place] [address] Operative Report 10/07/17 1515 MR#: [id number] Acct: [id number] Name: CINTHIA LEWIS Rep #: [id number] : 1980 37 From: Walter Lawrence MD PCP: Care Physician, No Primary Status: REG [facility] Y Location: [place] [address] Problem List (1) Umbilical hernia Status: Acute Qualifiers: Obstruction and gangrene presence: without obstruction or gangrene Report of Operation Date of Procedure: 10/07/17 Pre-Operative Diagnosis: Umbilical hernia Post-Operative Diagnosis: Umbilical hernia Surgery/Procedure Performed:: Umbilical herniorrhaphy with [address] mesh. Reference #[id number]. Lot number WINDOWS DESKTOP ENGINEER [id number]. Expiry date 07/27/2019 Description of Surgical Findings:: Timeout and informed consent was obtained. 37-year-old female was taken the operating. She was placed upon the table. She underwent general endotracheal intubation anesthesia. Clindamycin 900 mg given intravenous preoperatively because of penicillin allergy. The abdomen was sterilely prepped draped. Ioban draping was utilized as well. A curvilinear incision was made in the inferior aspect of the umbilicus. Sharp and blunt dissection was complete used to completely release the umbilical hernia from the umbilical skin. Circumferential dissection was performed. The hernia sac was then excised using electrocautery and complete hemostasis was intact. The defect area measured approximately 3 x 3 cm. I waited a 8 [address] diameter [address] mesh inserted easily. The tails were secured laterally with interrupted 0 Nurolon. The fascia was approximated midline with interrupted 0 Nurolon with sutures to just grab the mesh at that central portion. That fascia was then approximated nicely. There appeared to be very nice positional lie of the mesh and sutures. The fascia and subcu dermal tissues were anesthetized with 0.5% Marcaine. Total 30 cc was used. The skin edges were approximated with interrupted 4 Monocryl subdermal stitches. Steri-Strips Telfa OpSite dressing cottonball pressure dressing applied. Sponge and instrument and needle counts were reported to the surgeon to be correct. Blood loss minimal. Specimens hernia sac and contents. Drains none. Blood loss minimal Walter Lawrence M.D., F.A.C.S. Type of Anesthesia:: General Anesthesiologist: Henrique Pascal 10/07/17 1518 <Electronically signed by Walter Lawrence MD> Date Walter Lawrence MD CC: No Primary Care Physician; Walter Lawrence MD Signed HERNIA Observed: 10/07/2017 Status: F Source: [place] 2:00 PM [facility] REPOSITORY Patient: CINTHIA LEWIS : 1980 (37/F) Acct Num: [id number] Phys: Melinda NICOLE,Walter Unit Num: [id number] Loc: [facility] Specimen: [id number] Received: 10/08/17 - 1041 Spec Type: Hernia TISSUES TISSUES: HERNIA GROSS DESCRIPTION Received in fixative is one container labeled with the patient's name and designated hernia sac contents. The specimen consists of a piece of yellow adipose tissue measuring 4 x 2.5 x 1.5 cm. Sections do not reveal any mass lesion. Supercalender Operator sections are submitted in one cassette. / SJ:watson TC:5 CPT: 48623 HEADER OPERATION: Hernia, umbilical repair with mesh PRE-OP DIAGNOSIS: Umbilical hernia TISSUE SUBMITTED: Hernia sac contents MICROSCOPIC DESCRIPTION Slides are reviewed. MICROSCOPIC DIAGNOSIS Soft tissue of umbilical region, excision: Fibrofatty tissue consistent with hernia sac. AM:watson 10/11/17 Signed Rico Porfirio 10/12/17 <signature on file> Performed By: #### PHERN #### [facility] [address] [place], [place], [address] CBC-COMPLETE BLOOD CNT Collected: 10/07/2017 Status: F Source: [place] NO DIFF 12:48 PM [facility] REPOSITORY TYPE CODE TESTS RESULT OUT OF RANGE REFERENCE UNITS LAB L100.1000 4.4-11.0 K/mm3 Normal WBC 6.2 LAB L100.1200 4.2-5.4 M/mm3 Normal RBC 4.44 LAB L100.1300 12.0-15.0 g/dl Normal HGB 13.6 LAB L100.1400 37-47 % Normal HCT 40.3 LAB L100.1500 81-99 fL Normal MCV 90.8 LAB L100.1600 27.0-32.0 pg Normal MCH 30.6 LAB L100.1700 32-36 g/gl Normal MCHC 33.7 LAB L100.1810 11.6-14.6 % Normal RDW CV 11.9 LAB L100.1820 35.1-43.9 fl Normal RDW SD 39.2 LAB L100.1900 150-450 K/mm3 Normal PLT 190 LAB L100.2000 6.2-12.0 fl Normal MPV 9.5 Performed By: #### L100.0500, L500.2500, L400.7600 #### [facility] [address] [place], [place], [id number] BASIC METABOLIC Collected: 10/07/2017 Status: F Source: [place] PROFILE (BMP) 12:48 PM [facility] REPOSITORY TYPE CODE TESTS RESULT OUT OF RANGE REFERENCE UNITS LAB L501.0100 74-106 mg/dL Normal GLU 84 Result Comment: Please note revised GLUCOSE reference range effective 2017. LAB L501.1000 7-18 mg/dL Normal BUN 17 LAB L501.1100 0.55-1.02 mg/dL Normal CREAT,SERUM 0.81 Result Comment: The validity of the calculated GFR AND GFRAA in patients over 70 years has not been determined. Clinical correlation is essential. LAB L501.1110 >60 mL/min Normal EST GFR 85 Result Comment: Non- GFR Calc LAB L501.1115 >60 mL/min Normal EST GFR - AA 103 Result Comment: GFR Calc LAB L501.1255 ml/min Normal Estimated CRCL 94.27 LAB L501.1300 10-20 RATIO High BUN/CRE 21.0 LAB L501.2200 8.5-10 mg/dL Normal .1 CA 8.9 LAB L501.5300 136-14 mmol/L Normal 5 NA 139 LAB L501.5600 3.5-5. mmol/L Normal 1 K 4.1 LAB L501.5900 98-107 mmol/L High CL 108 LAB L501.6100 21.0-3 mmol/L Normal 2.0 CO2 26.0 LAB L501.6200 5-15 Normal GAP 5 Performed By: #### L100.0500, L500.2500, L400.7600 #### [facility] [address] [place], [address] ,URINE Collected: 10/07/2017 Status: F Source: [place] 12:45 PM [facility] REPOSITORY TYPE CODE TESTS RESULT OUT OF REFERENCE UNITS RANGE LAB L400.8000 Negative Normal HCGUQUAL Negative Result Comment: Very dilute urine specimens, as indicated by a low specific gravity, may not contain employer relations representative levels of hCG. If is still suspected, a first morning urine specimen should be collected 48 hours later and tested. Performed By: #### L100.0500, L500.2500, L400.7600 #### [facility] [address] [place], [address] SURGERY VISIT REPORT Observed: 09/30/2017 Status: F Source: [place] 2:15 PM [facility] RE[facility]IT[facility] [address] [place] [address] OFFICE VISIT Date of Service: 09/30/17 MR#: [id number] Acct: [id number] Name: CINTHIA LEWIS Lee Rep #: [id number] : 1980 Provider: Walter Lawrence MD Age/Sex: 37/F Location: [facility] Status: Signed Intake Vital Signs09/30/17 Height 5 ft 6 in 09/30/17 Weight: 160 lb 5 oz 09/30/17 Body Mass Index (BMI) 25.9 09/30/17 Blood Pressure 112/75 Intake Visit Reasons: Hernia Chief Complaint: umbilical hernia Lay Up Operator Required: No Is patient in pain?: No Allergies Penicillins Allergy (Verified 09/30/17 13:55) Hives Medications lactobacillus combination no.8 3 billion cell capsule 3,000 mmu cells PO QDAY 03/03/17 [History Confirmed 09/30/17] loratadine 10 mg tablet 10 mg PO QDAY PRN 03/03/17 [History Confirmed 09/30/17] vitamin,calcium,lsalrshh-ddsr-oadny acid tablet 1 tab PO QDAY 03/03/17 [History Confirmed 09/30/17] Is last menstrual period known: No Post menopausal: No Patient : No PFSH Medical History Umbilical hernia (Acute) (Acute) Back problem (Acute) Surgical History S/P colonoscopy (Acute) S/P wisdom tooth extraction (Acute) Family History Mother Arthritis Hypertension Heart disease Sister Asthma Father , Lung cancer Lung cancer Social History Smoking Status: Never smoker second hand exposure: No alcohol intake: never substance use type: does not use caffeine: No what type of physical activity do you participate in: none frequency: does not exercise seatbelt use: always HPI HPI HPI: CINTHIA LEWIS, is a 37 F who presents to the office today for ongoing surgical follow-up and care regarding a symptomatic umbilical hernia. On March 03, 2017 while the patient was I did have an opportunity to see her. She had quite a prominent hernia. We suggested to wait till she was . She delivered 4 weeks ago. This is now her third child. She and her are still considering possible future pregnancies. She does not have any other chronic medical illnesses. She is enjoying a good quality of life. She is still able to mostly reduce her hernia. It is of note that particularly with this last it has become very prominent ROS General General: Yes weight change; no appetite, fatigue, colon cancer, breast cancer or weakness HEENT HEENT: No difficulty swallowing, eye injury, eye surgery, swollen glands or hoarseness Endo Endocrine: No thyroid disease, diabetes mellitus, thyroid cancer, Hair loss, heat intolerance or cold intolerance Skin Skin: No rash or changing moles Breast Breast: No left breast lump, right breast lump, nipple discharge, breast pain, abnormal mammogram, abnormal US or breast enlargement Musc Musculoskeletal: Yes back problems; no arthritis, rheumatoid arthritis, gout or joint pain Cardio Cardiovascular: No murmur, pacemaker, heart disease, atrial fibrillation, high blood pressure, heart attack, heart stent, palpitations, shortness of breat with exertion or chest pain Psych Psychiatric: No depression, anxiety or hearing voices Resp Respiratory: No shortness of breath, No sleep apnea, No cough, No COPD, No asthma, No emphysema, No wheezing Gastro Gastrointestinal: Yes abdominal pain, No nausea or vomiting, No diarrhea, No constipation, No blood in stool, No acid reflux, No hemorrhoids, No ulcers, No gallbladder problem, No black,tarry stools Garth Hematologic: No blood thinners, No blood disorders, No bleeding, No anemia, No blood clots Neuro Neurologic: No weakness Exam Const General: cooperative, healthy appearing Nutritional Appearance: average body habitus Orientation: alert, awake, oriented x3 HENMT Head: normal to inspection Eyes General: appearance normal, both eyes and all related structures Neck Neck: normal visual inspection Chest Chest palpation AND inspection: normal inspection of the chest Breast Palpation: No nipple discharge Resp Effort AND Inspection: normal respiratory effort Auscultation: clear to auscultation bilaterally Cardio Rate: regular rate Rhythm: regular rhythm Heart Sounds: no murmurs GI Palpation: soft, no hepatosplenomegaly, hernia (Complex possible multi-defect umbilical hernia, partially reducible), other Other: The patient has a very thin lax abdominal wall. No masses. Normal bowel sounds Skin General: no rashes or lesions noted Neuro Cranial Nerves: CN's II-XI intact bilaterally Extrem General: no clubbing, cyanosis or edema Psych Affect: normal affect Assessment AND Plan Problems 1. Umbilical hernia without obstruction and without gangrene K42.9 Plan I am recommending the patient a umbilical herniorrhaphy. This may be benefited by a hybrid approach. Recommend a small curvilinear incision at the inferior portion of the umbilicus. 1 or a multi-defect may be identified. I anticipate utilizing ventralex mesh. Because of the patient's lax abdominal wall she might benefit by a laparoscopic inspection laterally to assure flat placement of the mesh. I would then want to assure utilization of appropriate local anesthetic in the form of a tap block. She is aware of the technique, benefits, risks, alternatives. She has had an opportunity to ask and have questions answered. We will schedule procedure to her discretion. I very much appreciate the kind opportunity of assisting with her surgical care. Cc: Dr. Alberta Lawrence M.D., F.A.C.S. Coding Level of Care Code Off vis,est,level 3 Diagnoses Umbilical hernia without obstruction and without gangrene K42.9 Obstruction and gangrene presence: without obstruction or gangrene 09/30/17 1415 <Electronically signed by Walter Lawrence MD> Date Walter Lawrence MD Cosigner Signature: Date (if applicable) CC: Alberta Conrad MD OPERATIVE REPORT Observed: 09/10/2017 Status: F Source: ANDRES 9:46 AM [facility] Medical Records Department [address] [address] Operative Report 08/30/17 0953 MR#: [id number] Acct: [id number] Name: CINTHIA LEWIS Rep #: [id number] : 1980 37 From: Alberta Conrad MD PCP: Care Physician, No Primary Status: DIS IN Y Location: GA012-2 ADDENDUM by Alberta Conrad MD on 09/10/17 at 0945 Code Visit NOTE ALREADY IN CHART: of a gauthier viable infant over intact perineum to laceration as described. Infant to maternal abdomen and cord clamped x two and cut. Repair under epidural to hemostatic and intact with 3-0 vicryl Delivery of placenta by spont expulsion and expression. Intact 3 V cord. Pt and infant tolerated procedure well. to recovery. Counts correct. EBL as stated. 09/10/17 0946 <Electronically signed by Alberta Conrad MD> Date Alberta Conrad MD cc: No Primary Care Physician; Alberta Conrad MD * Signed Vaginal Delivery Maternal Presentation: Spontaneous Rupture of Membranes 37 6/7 wk SROM Method of Induction: Pitocin, Amniotomy Amniotic Membrane Rupture Type: Spontaneous at home Amniotic Fluid Description: Clear Final STACIE: 09/14/17 Gestational age: 37 Weeks and 6 Days Date of Procedure: 08/30/17 Pre-Operative Diagnosis: 37 6/7 wk SPROM Post-Operative Diagnosis: Same Surgery/ Procedure Performed: Spontaneous Vaginal Delivery Type of Anesthesia: Epidural Presentation: Vertex, WILLY Placental Delivery Description: Spontaneous, Expressed Placenta Disposition: [facility] Cord Vessel Description: 3 Vessels Cord Entanglement: None Infant A gender: Female (1 minute): 8 (5 minute): 9 Laceration: Midline, Perineal Extension/lac, Vaginal Extension/lac, 2nd degree Medications given after delivery: IV Pitocin Complications: None 08/31/17 0007 <Electronically signed by Alberta Conrad MD> Date Alberta Conrad MD CC: No Primary Care Physician; Alberta Conrad MD Signed DISCHARGE INSTRUCTION Observed: 08/30/2017 Status: F Source: IMPERIAL 9:58 AM [facility]POSIT[facility] Medical Records Department [address] [place] [address] Instructions for Home/Discharge Instructions 08/30/17 0956 MR#: [id number] Acct: [id number] Name: CINTHIA LEWIS Rep #: [id number] : 1980 37 From: Alberta Conrad MD PCP: Care Physician, No Primary Status: ADM IN Discharge Diet: No Restrictions Discharge Activity: May Shower, May Take a Tub Bath May resume sexual activity in: 4-6 weeks Additional Instructions: If you experience any of the following, contact your healthcare provider. * Bleeding that soaks a pad every hour for 2 hours * Fever 100.4 or higher * Unrelieved abdominal pain * Inability to urinate or burning while urinating). * Visual changes * Severe headache * Flu-like symptoms * Pain or redness in one of both of your breasts * Pain, warmth, tenderness or swelling in your legs, especially the calf area * Frequent nausea and vomiting * Symptoms of depression or anxiety If you experience any of the following, call 911 or go to the nearest Emergency Room. * Chest pain * Problems breathing * Seizure activity * Partial or complete paralysis of a body part, slurred speech, weakness or drooping of the face, or a sudden inability to walk or hold your balance Allergies/Adverse Reactions: Allergies Penicillins Allergy (Verified 08/30/17 01:55) Hives Medications to take at Discharge biotin 1 mg capsule 1 mg PO QDAY 03/03/17 lactobacillus combination no.8 3 billion cell capsule 3,000 mmu cells PO QDAY 03/03/17 loratadine 10 mg tablet 10 mg PO QDAY PRN 03/03/17 vitamin,calcium,uknfsvfu-kqoh-gvesb acid tablet 1 tab PO QDAY 03/03/17 Please Follow Up With: Alberta Conrad MD - [phone] When: Call to make an appointment with your doctor in 6 weeks. Primary Care Physician: Care Physician,No Primary [Primary Care Provider] - Test Results: 08/30/17 0958 <Electronically signed by Alberta Conrad MD> Date Alberta Conrad MD CC: No Primary Care Physician CBC-COMPLETE BLOOD CNT Collected: 08/30/2017 Status: F Source: ANDRES NO DIFF 1:10 AM [facility] REPOSIT[facility] TYPE CODE TESTS RESULT OUT OF RANGE REFERENCE UNITS LAB L100.1000 4.4-11.0 K/mm3 Normal WBC 7.1 LAB L100.1200 4.2-5.4 M/mm3 Low RBC 3.74 LAB L100.1300 12.0-15.0 g/dl Low HGB 11.7 LAB L100.1400 37-47 % Low HCT 34.7 LAB L100.1500 81-99 fL Normal MCV 92.8 LAB L100.1600 27.0-32.0 pg Normal MCH 31.3 LAB L100.1700 32-36 g/gl Normal MCHC 33.7 LAB L100.1810 11.6-14.6 % Normal RDW CV 12.8 LAB L100.1820 35.1-43.9 fl Normal RDW SD 43.4 LAB L100.1900 150-450 K/mm3 Normal PLT 194 LAB L100.2000 6.2-12.0 fl Normal MPV 9.9 Performed By: #### L100.0500 #### [facility] [place], [address] TYPE AND SCREEN Collected: 08/30/2017 Status: F Source: ANDRES 1:10 AM [facility] RE[facility]ITORY Order Comment: Reason for Type AND Screen/Red Cells: ROUTINE TYPE CODE TESTS RESULT OUT OF RANGE REFERENCE UNITS LAB B10.0800 A Normal BLOOD TYPE GEL POSITIVE LAB B100.4000 Normal Antibody NEGATIVE Screen Performed By: #### B101.7450 #### [facility] [address] [place], [place], [address] (ROM) RUPTURE OF Collected: 08/30/2017 Status: F Source: ANDRES MEMBRANES 12:30 AM [facility] TYPE CODE TESTS RESULT OUT OF REFERENCE UNITS RANGE LAB L205.1310 Negative High ROM POSITIVE Result Comment: Amniotic fluid present indicates rupture of Membranes. RESULTS CALLED TO KARENA CARLOS 08/30/17 0040 Claritza Nicholas. REPORT READ BACK BY SAME . Performed By: #### L205.1000 #### [facility] [address] [facility]. [place], [place], [id number] CBC-COMPLETE BLOOD CNT Collected: 08/18/2017 Status: F Source: ANDRES NO DIFF 10:41 AM [facility] TYPE CODE TESTS RESULT OUT OF RANGE REFERENCE UNITS LAB L100.1000 4.4-11.0 K/mm3 Normal WBC 5.8 LAB L100.1200 4.2-5.4 M/mm3 Low RBC 3.69 LAB L100.1300 12.0-15.0 g/dl Low HGB 11.8 LAB L100.1400 37-47 % Low HCT 34.5 LAB L100.1500 81-99 fL Normal MCV 93.5 LAB L100.1600 27.0-32.0 pg Normal MCH 32.0 LAB L100.1700 32-36 g/gl Normal MCHC 34.2 LAB L100.1810 11.6-14.6 % Normal RDW CV 12.8 LAB L100.1820 35.1-43.9 fl Normal RDW SD 42.5 LAB L100.1900 150-450 K/mm3 Normal PLT 193 LAB L100.2000 6.2-12.0 fl Normal MPV 10.0 Performed By: #### L100.0500 #### [facility] [address] [place], [place], [id number] LIVER PROFILE Collected: 08/18/2017 Status: F Source: ANDRES 10:41 AM [facility] TYPE CODE TESTS RESULT OUT OF RANGE REFERENCE UNITS LAB L501.1500 6.4-8.2 g/dL Normal T PROT 6.6 LAB L501.1800 3.2-5.0 g/dL Low ALB 2.5 LAB L501.1950 2.2-4.2 g/dL Normal GLOB 4.1 LAB L501.4100 15-37 U/L Normal AST 29 LAB L501.4305 45-117 U/L Normal ALK P 100 LAB L501.4405 13-56 U/L Normal ALT 35 LAB L501.4600 0.20-1.00 mg/dL Normal T BILI 0.30 LAB L501.4700 0.00-0.30 mg/dL Normal D BILI 0.06 Performed By: #### L500.3400 #### [facility] [address] [place], [address] GROUP B STREP DNA Collected: 08/18/2017 Status: F Source: ANDRES BY PCR 10:00 AM [facility] Order Comment: Source: Vaginal-Rectal TYPE CODE TESTS RESULT OUT OF RANGE REFERENCE UNITS LAB L8200.0100 Negative Normal GBS TEST Negative RESULT Performed By: #### L8200.0000 #### [facility] [place], [address] Observed: 08/18/2017 Status: F Source: ANDRES CULTURE, GROUP B 12:00 AM [facility] STREPTOCOCCUS REPOSITORY KIARA Culture Group B Beta Streptococcus is not isolated. Performed By: #### M100.1800 #### [facility] [address] [place], [address] CBC-COMPLETE BLOOD CNT Collected: 06/21/2017 Status: F Source: ANDRES NO DIFF 4:34 PM [facility] TYPE CODE TESTS RESULT OUT OF RANGE REFERENCE UNITS LAB L100.1000 4.4-11.0 K/mm3 Normal WBC 9.2 LAB L100.1200 4.2-5.4 M/mm3 Low RBC 3.63 LAB L100.1300 12.0-15.0 g/dl Low HGB 11.2 LAB L100.1400 37-47 % Low HCT 33.8 LAB L100.1500 81-99 fL Normal MCV 93.1 LAB L100.1600 27.0-32.0 pg Normal MCH 30.9 LAB L100.1700 32-36 g/gl Normal MCHC 33.1 LAB L100.1810 11.6-14.6 % Normal RDW CV 13.0 LAB L100.1820 35.1-43.9 fl High RDW SD 44.0 LAB L100.1900 150-450 K/mm3 Normal PLT 202 LAB L100.2000 6.2-12.0 fl Normal MPV 9.4 Performed By: #### L100.0500 #### [facility] [address] [place], [address] GLUCOSE CHALLENGE GEST Collected: 06/21/2017 Status: F Source: IMPERIAL 1H 50G 4:34 PM [facility] TYPE CODE TESTS RESULT OUT OF RANGE REFERENCE UNITS LAB L501.0250 70-140 mg/dL Normal GLU GEST 113 50g 1H Performed By: #### L501.0250 #### [facility] [address] [place], [address] ALLERGIES ALLERGIES DATE TYPE / CODE NAME / CODE REACTION SEVERITY SOURCE 10/07/2017 Drug Penicillins/ Hives Unknown [facility] Allergy/4160 [id number]([facility] 46843(SNOMED XNORM) Repository CT) ENCOUNTERS ENCOUNTERS ADMIT/DISCHARGE ACCOUNT ADMITTING ENCOUNTER LOCATION SOURCE NUMBER CLASS 02/09/2018 [id number] Ambulatory Andres Morris [address] [facility] ing:MTLAB Repository 10/22/2017 [id number] Ambulatory Andres Andres [address] [facility] ing:LABSPEC Repository 10/19/2017/ [id number] Ambulatory BMSBuilding:B [place] 8 6 [place] Repository 10/07/2017/ [id number] Ambulatory Morris Morris [address] [facility] ing:SDCRoom: Repository AC10 10/07/2017 [id number] Ambulatory BMSBuilding:B Morris 8 [place].[facility] Repository 10/07/2017 [id number] Ambulatory BMSBuilding:W Morris 4 [facility] Repository 09/30/2017/ [id number] Ambulatory BMSBuilding:B Morris 8 5 [place].[facility] Repository 08/30/2017/ [id number] Anamaria, Inpatient Andres Morris 8 0 Alberta Encounter [facility] ing:WPRoom: Repository ZO438Mya: 1 08/18/2017 [id number] Ambulatory Andres Andres [address] [facility] ing:WOBLAB Repository 06/21/2017 [id number] Ambulatory Morris Morris [address] [facility] ing:WOBLAB Repository PAYERS PAYERS ENCOUNTER GUARANTOR PAYER SUBSCRIBER SOURCE 02/09/2018 ANASTASTIA B Primary ANASTASTIA B Andres [id number] BETSY Insurance:ANTHEMPolic LINZDOB: [facility] [address] MICHAEL, y Number: [id number] [facility] [address]Sul: [id number] Repository Date:5380-84-93[address] () [address], [place] [address]ZO: 02/09/2018 Secondary NOT GIVENUNK Andres Insurance:SELF PAY [facility] Number: Effective Repository Date:2018-02-09 10/22/2017 ANASTASTIA B Primary ANASTASTIA B Andres [id number] BETSY Insurance:ANTHEMPolic LINZDOB: [facility] [address] MICHAEL, y Number: [id number] County Hospital [address]Yjz: [id number] Repository Date:8634-67-99OC [address] () [address], [place] [address]WR: 10/22/2017 Secondary NOT GIVENUNK Andres Insurance:SELF PAY [facility] Number: Effective Repository Date:2017-10-22 10/19/2017 ANASTASTIA B Primary ANASTASTIA B Andres [id number] BETSY Insurance:ANTHEMPolic LINZDOB: [facility] [address] MICHAEL, y Number: [id number] County Hospital [address]Wqg: [id number] Repository Date:9686-29-58PF [address] () [address], [place] [address]UG: 10/19/2017 Secondary NOT GIVENUNK Morris Insurance:SELF PAY [facility] Number: Effective Repository Date:2017-10-19 10/07/2017 ANASTASTIA B Primary ANASTASTIA B Morris [id number] BETSY Insurance:ANTHEMPolic LINZDOB: [address], y Number: [id number] County Hospital [address]Weu: [id number] Repository Date:8943-92-02VY [address] () [address] [address]MG: 10/07/2017 Secondary NOT GIVENUNK Morris Insurance:SELF PAY [facility] Number: Effective Repository Date:2017-10-05 10/07/2017 ANASTASTIA B Primary ANASTASTIA B Morris [id number] BETSY Insurance:ANTHEMPolic LINZDOB: [facility] [address] MICHAEL, y Number: [id number] County Hospital [address]Exs: [id number] Repository Date:9932-81-01LX [address] () [address]FDY[place]CV, [place] [address]QK: 10/07/2017 Secondary NOT GIVENUNK Morris Insurance:SELF PAY [facility] Number: Effective Repository Date:2017-10-07 10/07/2017 ANASTASTIA B Primary ANASTASTIA B Andres [id number] BETSY Insurance:ANTHEMPolic LINZDOB: [facility] [address] MICHAEL, y Number: [id number] County Hospital [address]Psm: [id number] Repository Date:5355-71-94OL [address] () [address], [place] [address]OO: 10/07/2017 Secondary NOT GIVENUNK Andres Insurance:SELF PAY [facility] Number: Effective Repository Date:2017-10-07 09/30/2017 ANASTASTIA B Primary ANASTASTIA B Morris [id number] BETSY Insurance:ANTHEMPolic LINZDOB: [address] y Number: [id number], [place] [id number] Repository [address]Rtz: (330) Date:4325-63-43UN [phone] () [place] [address]JT: 09/30/2017 Secondary NOT GIVENUNK Andres Insurance:SELF PAY [facility] Number: Effective Repository Date:2017-09-21 08/30/2017 ANASTASTIA B Primary ANASTASTIA B Morris [id number] BETSY Insurance:ANTHEMPolic LINZDOB: [address] [facility], y Number: [id number] County Hospital [address]Ikh: [id number] Repository Date:1598-69-70BQ [address]OX () [address]268[address]LZXNSQQROMEO HARDY [address]CQ: 08/30/2017 Secondary NOT GIVENUNK Morris Insurance:SELF PAY [facility] Number: Effective Repository Date:2017-08-30 08/18/2017 ANASTASTIA B Primary ANASTASTIA B Morris [id number] BETSY Insurance:ANTHEMPolic LINZDOB: [address] y Number: [id number], [place] [id number] Repository [address]Nro: (330) Date:2131-59-44PZ [phone] () [address], [place] [address]ED: 08/18/2017 Secondary NOT GIVENUNK Andres Insurance:SELF PAY [facility] Number: Effective Repository Date:2017-08-18 06/21/2017 ANASTASTIA B Primary ANASTASTIA B Morris [id number] BETSY Insurance:ANTHEMPolic LINZDOB: [address] y Number: [id number], [place] [id number] Repository [address]Iph: ([phone]) Date:5736-28-87MA [phone] () [address], [place] [address]JO: 06/21/2017 Secondary NOT GIVENUNK Morris Insurance:[facility]LF [facility]: Effective Repository Date:2017-06-21
== END ==
PROVIDERS: Referring Provider Internal Medicine Gastroenterology; Visit Provider Internal Medicine Gastroenterology
DX: R19.7 Diarrhea, unspecified (principal)
CPT/HCPCS: 36415; 82784; 83516; 86140; 86255

== ENCOUNTER → 2018-11-04 13:50 | Outpatient (CLI) | payer BC, SELFPAY ==
[2017-10-07 12:52] VITALS: BMI 25.7
[2018-11-04 15:35] LABS: Chlamydia Trachomatis by PCR Negative (Negative); Neisserai gonorrhoeae by PCR Negative (Negative); Probe Check PASS; Sample Adequacy Control PASS; Specimen Processing Control PASS
== END ==
PROVIDERS: Visit Provider Obstetrics & Gynecology
DX: Z11.3 Encounter for screening for infections with a predominantly sexual mode of transmission (principal)
CPT/HCPCS: 87491; 87591

== ENCOUNTER 2018-11-15 06:30 | Day surgery (SDC) | payer BC, SELFPAY ==
[2018-11-15] VITALS (8 sets, daily range): BP systolic 104–131; BP diastolic 54–72; PULSE 63–94; RESP 14–18; TEMP 36.7–37.4; O2SAT 97–99; BMI 25.2
[2018-11-15 07:12] LABS: Absolute Lymphocyte Count 1.55 X10^3/uL (0.83-4.51); Absolute Neutrophil Count 4.7 X10^3/uL (2.0-7.7); Basophil# 0.02 X10^3/uL; Basophil% 0.3 % (0-1); Eosinophil# 0.13 X10^3/uL; Eosinophils% 1.9 % (0-5); Hematocrit 39.7 % (37-47); Hemoglobin 13.4 g/dL (12.0-15.0); Lymphocyte # 1.55 X10^3/ul (4.0); Lymphocyte % 22.8 % (19-41); Mean Corp Hgb Conc 33.8 g/dL (32-36); Mean Corpuscular Hgb 29.6 pg (27.0-32.0); Mean Corpuscular Volume 87.8 fL (81-99); Mean Platelet Vol. 9.4 fl (6.2-12.0); Monocyte# 0.42 X10^3/uL; Monocyte% 6.2 % (0-10); NRBC Flagged by Analyzer 0 % (0-5); Neutrophil # 4.66 X10^3/uL (2.7-7.7); Neutrophil % 68.4 % (47-70); Platelet Count 167 K/mm3 (150-450); RBC Distribution Width SD 38.9 fl (35.1-43.9); Red Blood Count 4.52 M/mm3 (4.2-5.4); White Blood Count 6.8 K/mm3 (4.4-11.0)
--- NOTE | 2018-11-15 07:34 | ED.DCSUM_ITS ---
- ER Visit Summary Date of Service: 11/15/18 Chief Complaint: Vaginal bleeding History of Present Illness: The patient is a 38 F who is G4, P3. She was diagnosed last week with a blighted ovum. She follows with Dr. Alberta Conrad. She tells me that she had spotting last week. When she was seen in the office she was scheduled for a D&C to be performed on 11/18/18. He tells me this morning when she got up she noticed increased bleeding. She has not noticed any tissue. When she went to work and the bleeding and the cramping was worse. She describes clots about the size of a half dollar. She attempted to call the on-call line but was unsure of what to do so she came to the emergency department. She denies any syncope or near syncope. Physical Examination: Afebrile vital signs are stable blood pressure 131/72 heart rate of 94 Gen: Well-nourished well-developed Head: Normocephalic atraumatic Eyes: Perrl EOMI ENT: TMs clear no rhinorrhea moist mucous membranes Neck: Supple no lymphadenopathy no JVD nontender CVS: Regular rate rhythm no murmurs normal S1-S2 Respiratory: No distress clear to auscultation bilaterally chest nontender Abdomen: Soft nontender nondistended normal bowel sounds no masses : Pelvic examination showed bright red bleeding requiring suction of approximately 25 cc an evacuation of a half dollar size clot x2 cervix. Once this blood was removed mild amount of bleeding was noted. Back: Nontender Extremity: Nontender no edema Skin: Normal color no rash Neuro: alert orientated ?3 CN II-XII intact normal strength sensation reflexes gait cerebellar Psych: Normal affect normal mood Test Results: White count is 13.4. She is a positive by history and confirmation in the computer. Quantitative hCG 9164. Emergency Department Course and Treatment: I spoke with Dr. Conrad who has come to the emergency department. Plan will be to perform D&C today. Patient reports to me her last p.o. was water at 0030 last night Impression: 1. Blighted ovum 2. Incomplete miscarriage This note was generated with [employer] software. It may contain incorrect words, spelling, and punctuation that were not noted in review of the chart prior to signing ED Disposition - Plan for ED Patient: Referrals: Care Physician,No Primary [Primary Care Provider] -
[2018-11-15 07:56] LABS: hCG Titer Quant., Serum 9164 mIU/mL (1-3)
--- NOTE | 2018-11-15 08:13 | NURSING ---
DR JENSEN IN ER
--- NOTE | 2018-11-15 08:40 | NURSING ---
OR CAMILA BLIGHTED OVUM INCOMPLETE MISCARRIAGE
--- NOTE | 2018-11-15 08:50 | ED.RN ---
CALLED REPORT TO
[2018-11-15] MEDS: Lactated Ringers 1,000 ML 100 ML IV (09:15)
--- NOTE | 2018-11-15 12:00 | POC_PTH ---
PATIENT: CINTHIA LEWIS [place] [facility] [id number] AGE/SX: 38/F ROOM: RE11/15/[address]: Dr. Alberta Conrad MD : 1980 BED: DIS: 11/15/2018 SPEC #: [id number] RECD: 11/15/18 15:45 STATUS: JESSICA RESimba #: [id number] АЛЕКСАНДР: 11/15/18 12:[address]: Alberta Conrad DEPT: SURGICAL PATHOLOGY RECD BY: Marielos Burnett ENTERED: 11/16/18 09:18 SP TYPE: PROD CONC OTHR DR: No Primary Care Phys Tissues: Product of conception, NOS Procedures: Surgery Specimen Level IV HEADER OPERATION: Dilation and curettage, suction PRE-OP DIAGNOSIS: Missed , blighted ovum TISSUE SUBMITTED: Products of conception MICROSCOPIC DIAGNOSIS Endometrium, curettage: Chorionic villi, decidualized stroma and trophoblastic cells consistent with products of conception. AM:watson 11/17/18 MICROSCOPIC DESCRIPTION Slides are reviewed. GROSS DESCRIPTION Received in fixative is one container labeled with the patient's name and designated products of conception. The specimen consists of multiple irregular fragments of light to dark westfall soft tissue ranging in size from <0.1 to 7 cm and in aggregate measuring 9 x 9 x 3 cm. parts are not grossly recognized. Range Operator sections are submitted in three cassettes. / AM:watson 11/16/18 TC:5 CPT: 29943
--- NOTE | 2018-11-15 12:24 | PCM.DC.D&C ---
Discharge Diet: No Restrictions Discharge Activity: May Shower, May Take a Tub Bath Return to work on:: 11/16/18 May resume sexual activity in: 1 week Call your doctor if you observe: Fever of 101 or Higher, Using more than one pad per hour, Uncontrolled pain Additional Instructions: Resume all activity as tolerated. Take doxycycline 1 tab twice daily until gone. Take two Aleve or Two ibuprofen every 6 hr for pain as needed. add Tylenol 1-2 tab by mouth every 6 hr as needed. Allergies/Adverse Reactions: Allergies Penicillins Allergy (Verified 11/15/18 06:35) Rash Medications to take at Discharge lactobacillus combination no.8 3 billion cell capsule 1 cap PO QDAY 03/03/17 loratadine 10 mg tablet 10 mg PO QDAY PRN 03/03/17 vitamin,calcium,fsrujysd-ctny-weerl acid tablet 1 tab PO QDAY 03/03/17 Doxycycline 100 mg PO BID #6 cap 11/15/18 The following prescriptions were given: Doxycycline 100 mg PO BID #6 cap Transmission Status: Pending to [facility] Primary Care Physician: Care Physician,No Primary [Primary Care Provider] - Test Results: Test results from this visit will be discussed in further detail at your follow-up appointment, if applicable.
--- NOTE | 2018-11-15 12:28 | PCM.HPOB.BLA ---
History and Physical Date of Admission: 11/15/18 H&P - OBGYN (Blank) Patient Name: CINTHIA LEWIS Date of : 84 Patient Status: Surgical Day Care Attending Provider: Alberta Conrad Date: 11/15/18 08:35 Initialization Date: 11/15/18 08:35 Addendum entered and electronically signed by Alberta Conrad MD 11/15/18 08:41: Code Visit Patient is scheduled for suction D and C on Wednesday11/17/18 , but presents to [facility] emergency dept with CC of passing quarter sized clots this am on her way to work. States pain 2/10 and inc at times to 5/10 Declines medication for now. Hgb stable. Gen: A and O, NAD Pelvic exam per ED physician: small clots in vaginal vault Patient was hoping to not miss work, but in light of bleeding and some cramping now would like to have D and C today. Hemodynamically stable. Minimal cramping, declines medication. A/P Blighted ovum. 7 wk EGA by gestational sac measurements. NPO since approx 6:30 pm yesterday except for sips of water. OR frame trimmer notified of change and surgery planned for today instead, at noon. Advised pt of time of surgery. Maintain NPO until then. Transfer to floor until surgery. IV in place, and will begin fluids IV pain med prn. Clinical transportation maintenance supervisor notified of need for bed and will call to ED re bed assignment. 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 She is interested in having D and C next week. She is spotting now, no heavy bleeding or cramping. Will discuss all further with Dr Conrad. Reviewed that if waiting may or may not pass this tissue on her own. LMT -- Blighted Ovum And Nonhydatidiform Mole (followup visit) which originally began after u/s last week. It was located on the uterus. Severity was described as asymptomatic. An associated sign and symptom is spotting. Comments: wanting surgery most likely As above. Here for follow up ultrasound She was seen last week with likely blighted ovum. Since then has had some vaginal bleeding. Bleeding is not heavy. She was advised to keep appt today for sono to check on continued presence of IUP. SONO today : Empty gestational sac measuring 7 week 0 day -- unchanged in size since 1 week ago Blighted Ovum Advised of findings, Options for management including expectant management vs suction D and C. Prefers suction D and C but requesting next Wednesday11/18/18 due to her work schedule. EB ALLERGIES: Pcn, Rash and swelling MEDICATIONS HISTORY: Patient is also takin. 27-0.8 mg tablet, One pill by mouth once a day 2. Claritin 10 mg tablet REVIEW OF SYSTEMS: GENERAL - Denies fever, or chills SKIN - Denies skin changes EYES - Denies visual changes EARS - Denies difficulty hearing NOSE - Denies nasal congestion or bleeding MOUTH - Denies sore throat or difficulty swallowing NECK - Denies pain or swelling RESPIRATORY - Denies shortness of breath or wheezing CARDIOVASCULAR - Denies palpitations or chest pain GASTROINTESTINAL - Denies nausea, vomiting, diarrhea, constipation GENITOURINARY - Denies dysuria, frequency of urination, incontinence of urine MUSCULOSKELETAL - Denies joint or muscle pain NEUROLOGICAL - Denies localized numbness or weakness PSYCHIATRIC - Denies depression or anxiety ENDOCRINE - Denies heat or cold intolerance, weight loss or gain HEMATO-IMMUNOLOGIC - Denies excesive bleeding with cuts PAST HISTORY: Breast/Ovarian/Colon Cancers - Denies Infections - Chicken pox childhood and Terrell 2002 Illnesses - no serious past illnesses Accidents - no injuries of consequence History of Abnormal PAPS - Denies Hospitalizations - Childbirth SURGICAL HISTORY: 1. 10/07/2017 Umbilical herniorrhaphy. Walter Melinda umbilical hernia 2. [place] Teeth Removal, age 24 3. colonoscopy/endoscopy MENSTRUAL HISTORY: LMP Known?- DefiniteAmount/Duration - 5 days, Regularity - Regular, Frequency - monthly days, LMP - 08/10/18, Age Onset Menarche - 16 PAST PREGNANCIES: Total Pregnancies - 4; Full Term Pregnancies - 3; Premature - 0; Abortions, Induced - 0; Abortions, Spontaneous - 0; Ectopics - 0; Multiple Births - 0; Living Children - 3 FAMILY HISTORY: Father - Cancer; Mother - FH: Congestive heart failure; Mother - FH: Hypertension; PaternalGrandparent - Cancer; SOCIAL HISTORY: Alcohol Use - denies drinking Smoking - Never Diet - balanced Diet Lifestyle - low stress lifestyle Exercise - walking Seat Belt Use - always Employer - [employer] 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 Illicit Drug Use - denies use of street drugs Sexual Activity - Residence - lives with Place of - [place], [place] Hours Worked - 50 hours per week Spouse-Sig Other Name - Alonso Spouse-Sig Other Occupation - Stay at home dad Spouse-Sig Other Phone No - [phone] cell Children Name(s) - Enrique 10' (AMS), [employer] 13' (AMS), Deyanira '18 (EB) Control - non-viable PHYSICAL EXAMINATION BP- 120/70 Sitting, Right arm, regular cuff Weight- 156.00 lbs Height- 67.00 inch BMI:24.48 CONSTITUTIONAL - NAD, well nourished, and well developed HEENT - normocephalic, atraumatic, sclerae anicteric NECK - no nuchal rigidity EXTREMITIES - No edema or calf tenderness NEUROLOGICAL - Cranial nerves II-XII grossly intact PSYCHIATRIC - A and O to time, place, person, mood and affect PELVIC - SONO confirms blighted ovum (persistent) ASSESSMENT: 1. Blighted Ovum PLAN BY DIAGNOSIS: 1. Blighted Ovum Sono today confirms persistent blighted ovum and no interval growth Advised of options. Expectant management, schedule suction D and C Discussed background rates of SAB and reviewed blighted ovum. R,B,A of suction D and C reviewed. Anticipated preop, operative and postop recovery including resumption of all activity discussed. Requests schedule for Wednesday11/18/18 due to her work schedule. Will schedule surgery Notify of time and date. The visit was approximately 20 minutes in length with most of the time spent in discussion and counseling.
--- NOTE | 2018-11-15 13:00 | OP.PCM_ITS ---
Report of Operation Date of Procedure: 11/15/18 Pre-Operative Diagnosis: 7 wk blighted ovum, vaginal bleeding Incomplete SAB Post-Operative Diagnosis: Same, incomplete SAB Surgery/Procedure Performed:: Suction D and C Description of Surgical Findings:: Cervix dilated 1 cm with POC extruding through cervix to upper vagina. Parous appearing cervix. Type of Anesthesia:: Local MAC Anesthesiologist: Henrique Pascal and Dr Andersen Specimen's removed: POC and uterine curettings Drains: Sage denise prior to case Estimated Blood Loss (mL): 50 cc Fluids Replaced: LR Description of Procedure: After the risks, benefits, alternatives of the procedure were reviewed with the patient, informed consent was obtained. The patient was taken to the operating room with an IV running and placed in dorsal supine position on the operating table. She was given MAC IV sedation and repositioned to the dorsal lithotomy position and prepped and draped in the usual sterile fashion. A Graves speculum was placed into the vagina and the cervix was brought into view. Cervix was instilled with 10 cc of 1% lidocaine without epinephrine as a paracervical block using a 20-gauge spinal needle in the 2:00 4:00 8:00 and 10:00 positions. A single-tooth tenaculum was applied to the anterior lip of the cervix. The cervix was already dilated and POC were noted extruding through the cervix. These were removed with a Ring forceps and set aside. A suction curettage was then performed using a 7 mm curved suction curette. A sharp curettage was then performed and good crei was noted in all quadrants. One final pass was performed with the suction curette tip and all tissue was set aside for later pathology review . This point the procedure was terminated the single-toothed tenaculum was removed from the anterior lip of the cervix and a Ray-Dalton guaze was used to re move any remaining tissue and blood from the upper vagina and cervix. Excellent hemostasis was noted. The speculum was removed. Methergine 0.2 mg IM was given times one in the L thigh. The patient was returned to dorsal supine position and awakened from IV sedation and then transferred to her recovery room bed in stable condition after tolerating the procedure well. Sponge, lap, needle, and instrument counts were correct x 2. Medications given intraoperatively included 10 cc of 1% lidocaine withou epinephrine instilled as a paracervical block. Methergine 0.2 mg IM times one also given. For complete listing the medications given intraoperatively, see the anesthesia record. - Complications none - Admit VTE Documentation VTE Present on Admission: No VTE Mechan Device Prophylaxis: SCD's
[2018-11-15 13:44] LABS: Absolute Lymphocyte Count 1.48 X10^3/uL (0.83-4.51); Absolute Neutrophil Count 6.7 X10^3/uL (2.0-7.7); Basophil# 0.02 X10^3/uL; Basophil% 0.2 % (0-1); Eosinophil# 0.06 X10^3/uL; Eosinophils% 0.7 % (0-5); Hemoglobin 12.1 g/dL (12.0-15.0); Lymphocyte # 1.48 X10^3/ul (4.0); Lymphocyte % 16.9 % (19-41); Mean Corp Hgb Conc 33.6 g/dL (32-36); Mean Corpuscular Volume 89.1 fL (81-99); Mean Platelet Vol. 9.5 fl (6.2-12.0); Monocyte# 0.45 X10^3/uL; Monocyte% 5.1 % (0-10); NRBC Flagged by Analyzer 0 % (0-5); Neutrophil # 6.73 X10^3/uL (2.7-7.7); Neutrophil % 76.8 % (47-70); Platelet Count 150 K/mm3 (150-450); RBC Distribution Width SD 39.4 fl (35.1-43.9); Red Blood Count 4.04 M/mm3 (4.2-5.4); White Blood Count 8.8 K/mm3 (4.4-11.0)
== END 2018-11-15 14:17 | disposition home or self-care (01) ==
LOC: ED 08:34 → SDC 08:44 → AC 08:45
PROVIDERS: Emergency Provider Emergency Medicine; Visit Provider Obstetrics & Gynecology
PROC: (CPT 59812; principal; 2018-11-15 11:45)
DX: O03.4 Incomplete spontaneous abortion without complication (principal); O02.0 Blighted ovum and nonhydatidiform mole
CPT/HCPCS: 01965; 59812; 36415; 84702; 85025; 88305; 99285; J7030; J7120; A4216; J2405

== ENCOUNTER → 2019-08-10 | Outpatient (CLI) | payer BC, SELFPAY ==
[2019-08-10 12:45] VITALS: BMI 25.2
[2019-08-10 13:56] LABS: Amphetamine Urine VISTA NEGATIVE (<1000 ng/mL); Barbiturate Urine VISTA NEGATIVE (< 200 ng/mL); Benzodiazepine Urine VISTA NEGATIVE (< 200 ng/mL); Cocaine Urine VISTA NEGATIVE (< 300 ng/mL); Ecstacy Urine VISTA NEGATIVE (< 500 ng/mL); Methadone Urine VISTA NEGATIVE (< 300 ng/mL); PCP Urine VISTA NEGATIVE (< 25 ng/mL); THC Urine VISTA NEGATIVE (< 50 ng/mL); Vista UDS pH Range 6
[2019-08-10 17:51] LABS: Chlamydia Trachomatis by PCR Negative (Negative); Neisserai gonorrhoeae by PCR Negative (Negative); Probe Check PASS; Sample Adequacy Control PASS; Specimen Processing Control PASS
== END | disposition home or self-care (01) ==
LOC: LABSPEC 13:22
PROVIDERS: Visit Provider Obstetrics & Gynecology
DX: O09.90 Supervision of high risk pregnancy, unspecified, unspecified trimester (principal); O09.529 Supervision of elderly multigravida, unspecified trimester; Z3A.00 Weeks of gestation of pregnancy not specified
CPT/HCPCS: 80307; 87086; 87088; 87491; 87591

== ENCOUNTER → 2019-08-11 16:34 | Outpatient (CLI) | payer BC, SELFPAY ==
[2019-08-10 12:45] VITALS: BMI 25.2
[2019-08-11 17:10] LABS: Absolute Lymphocyte Count 2.13 X10^3/uL (0.83-4.51); Absolute Neutrophil Count 4.6 X10^3/uL (2.0-7.7); Basophil# 0.03 X10^3/uL; Basophil% 0.4 % (0-1); Eosinophil# 0.12 X10^3/uL; Eosinophils% 1.6 % (0-5); Hematocrit 36.7 % (37-47); Hemoglobin 12.1 g/dL (12.0-15.0); Lymphocyte # 2.13 X10^3/ul (4.0); Lymphocyte % 28.6 % (19-41); Mean Corpuscular Hgb 29.6 pg (27.0-32.0); Mean Corpuscular Volume 89.7 fL (81-99); Mean Platelet Vol. 9.4 fl (6.2-12.0); Monocyte# 0.54 X10^3/uL; Monocyte% 7.3 % (0-10); NRBC Flagged by Analyzer 0 % (0-5); Neutrophil % 61.8 % (47-70); Platelet Count 210 K/mm3 (150-450); RBC Distribution Width SD 39.3 fl (35.1-43.9); Red Blood Count 4.09 M/mm3 (4.2-5.4); White Blood Count 7.4 K/mm3 (4.4-11.0)
[2019-08-11 17:44] LABS: NATERA MAILED SPECIMEN
[2019-08-12 10:46] LABS: HIV - WCH Non-Reactive (Nonreactive); Hepatitis B Surface Antigen Non-Reactive (Nonreactive); Hepatitis C Antibody Non-Reactive (Nonreactive); Rubella IgG 118.9 IU/mL
[2019-08-16 21:56] LABS: Rapid Plasmin Reagin (RPR) NONREACTIVE (NONREACTIVE)
== END ==
PROVIDERS: Referring Provider Obstetrics & Gynecology; Visit Provider Obstetrics & Gynecology
DX: O09.521 Supervision of elderly multigravida, first trimester (principal); O09.90 Supervision of high risk pregnancy, unspecified, unspecified trimester; Z3A.00 Weeks of gestation of pregnancy not specified
CPT/HCPCS: 36415; 85025; 86592; 86703; 86762; 86803; 86850; 86900; 86901; 87340

== ENCOUNTER → 2019-11-27 15:57 | Outpatient (CLI) | payer BC, SELFPAY ==
[2019-11-02 16:12] VITALS: BMI 26.6
[2019-11-27 16:53] LABS: Absolute Lymphocyte Count 1.58 X10^3/uL (0.83-4.51); Absolute Neutrophil Count 6.8 X10^3/uL (2.0-7.7); Basophil# 0.02 X10^3/uL; Basophil% 0.2 % (0-1); Eosinophil# 0.13 X10^3/uL; Eosinophils% 1.4 % (0-5); Hematocrit 33.6 % (37-47); Hemoglobin 11.1 g/dL (12.0-15.0); Lymphocyte # 1.58 X10^3/ul (4.0); Lymphocyte % 17.2 % (19-41); Mean Corpuscular Hgb 30.6 pg (27.0-32.0); Mean Corpuscular Volume 92.6 fL (81-99); Mean Platelet Vol. 9.6 fl (6.2-12.0); Monocyte# 0.58 X10^3/uL; Monocyte% 6.3 % (0-10); NRBC Flagged by Analyzer 0 % (0-5); Neutrophil # 6.84 X10^3/uL (2.7-7.7); Neutrophil % 74.4 % (47-70); Platelet Count 220 K/mm3 (150-450); RBC Distribution Width CV 12.4 % (11.6-14.6); RBC Distribution Width SD 41.7 fl (35.1-43.9); Red Blood Count 3.63 M/mm3 (4.2-5.4); White Blood Count 9.2 K/mm3 (4.4-11.0)
[2019-11-27 17:58] LABS: Glucose Challenge Gest 1H 50g 133 mg/dL (70-140)
== END ==
PROVIDERS: Referring Provider Obstetrics & Gynecology; Visit Provider Obstetrics & Gynecology
DX: Z34.90 Encounter for supervision of normal pregnancy, unspecified, unspecified trimester (principal); Z13.1 Encounter for screening for diabetes mellitus
CPT/HCPCS: 36415; 82950; 85025

== ENCOUNTER → 2020-02-01 14:52 | Outpatient (CLI) | payer BC, SELFPAY ==
[2020-01-10 16:02] VITALS: BMI 28.8
--- NOTE | 2020-02-01 14:57 | US_ITS ---
STUDY: SECOND AND THIRD TRIMESTER OBSTETRICAL ULTRASOUND - LIMITED REASON FOR EXAM: Female, 39 years old GROWTH LMP: 05/23/2019. PRIOR ULTRASOUND: None. TECHNIQUE: Transabdominal TECHNICAL QUALITY: Adequate. FINDINGS: There is a single intrauterine fetus. The fetus is in a cephalic presentation. There is demonstrated cardiac activity with a heart rate of 132 bpm. There is a normal amniotic fluid volume. The largest amniotic fluid pocket measures 4.91 cm. The amniotic fluid index (KJ) is 14.22 cm. The placenta is fundal in location. There are Grade 1 placental changes. The cervix measures 3.2 cm in length. BIOMETRY: BPD: 9.19 cm: 37 weeks, 2 days HC: 32.82 cm: 37 weeks, 1 days AC: 32.55 cm: 36 weeks, 3 days FL: 6.6 cm: 33 weeks, 6 days Age by LMP: 36 weeks, 2 days. STACIE by LMP: 02/27/2020. age by current US: 36 weeks, 3 days. STACIE by current US: 02/26/2020. Estimated weight: 2843 grams, +/- 426 grams, 47 percentile. US/OB Limited With Biometrics IMPRESSION: Single live intrauterine gestation with mean gestational age of 36 weeks and 3 days. Electronically Signed: Chidi Thompson, at 8:38 EST , Service support ,
== END ==
PROVIDERS: Referring Provider Obstetrics & Gynecology; Visit Provider Obstetrics & Gynecology
DX: O09.93 Supervision of high risk pregnancy, unspecified, third trimester (principal); Z3A.36 36 weeks gestation of pregnancy
CPT/HCPCS: 76816; 87081

== ENCOUNTER → 2020-02-21 | Outpatient (CLI) | payer BC, SELFPAY ==
[2020-02-01 16:10] VITALS: BMI 29.7
[2020-02-21 15:50] VITALS: BMI 29.9
== END | disposition home or self-care (01) ==
LOC: LABSPEC 17:24
PROVIDERS: Referring Provider Obstetrics & Gynecology; Visit Provider Obstetrics & Gynecology
DX: Z34.90 Encounter for supervision of normal pregnancy, unspecified, unspecified trimester (principal)
CPT/HCPCS: 87635; C9803; U0003

== ENCOUNTER 2020-02-24 05:25 | Outpatient (CLI) | payer BC, SELFPAY ==
[2020-02-21 15:50] VITALS: BMI 29.9
[2020-02-24 05:37] VITALS: TEMP 36.7
[2020-02-24 05:39] VITALS: BP 121/68; PULSE 81
[2020-02-24 05:43] VITALS: BMI 29.6
--- NOTE | 2020-02-24 05:49 | OB.TRI.PN_ITS ---
Progress Notes Date of Service: 02/24/20 Progress Note: nst secondary to arm pain patient evaluated by ER for right arm swelling and pain, recommend NST while being evaluated 130 moderate variability reactive no decelerations category I tracing [place]: no regular reactive nst will proceed to ER for full evaluation Multi Select Codes - Urinary/Genital Urinary/Genital CPT Codes: 96499-29 non-stress test Interp
[2020-02-24 06:01] VITALS: PULSE 81; O2SAT 98
[2020-02-24 09:56] VITALS: BP 124/73; PULSE 111
== END 2020-02-24 06:10 | disposition home or self-care (01) ==
LOC: WPOUT 05:31 → WP 05:31
PROVIDERS: Visit Provider Obstetrics & Gynecology
DX: O99.891 Other specified diseases and conditions complicating pregnancy (principal); M79.601 Pain in right arm; M79.89 Other specified soft tissue disorders; Z3A.00 Weeks of gestation of pregnancy not specified
CPT/HCPCS: 59025; 59050; 99218; G0378

== ENCOUNTER 2020-02-24 06:13 | Emergency (ER) | payer BC, SELFPAY ==
[2020-02-24 05:43] VITALS: BMI 29.6
[2020-02-24 06:17] VITALS: BP 124/88; PULSE 82; RESP 18; TEMP 36.6; O2SAT 99; BMI 30.5
--- NOTE | 2020-02-24 06:18 | EKG12_ITS ---
Test Reason : EDEMA Blood Pressure : / mmHG Vent. Rate : 071 BPM Atrial Rate : 071 BPM P-R Int : 122 ms QRS Dur : 084 ms QT Int : 394 ms P-R-T Axes : 023 062 041 degrees QTc Int : 428 ms Normal sinus rhythm with sinus arrhythmia Normal ECG Confirmed by SYD NICOLE, SANTA ([id number]), multimedia editor LARISA QUINTANILLA ([id number]) on 02/29/2020 10:09:29 AM Referred By: MARITO Confirmed By:JESSICA VELARDE MD
--- NOTE | 2020-02-24 06:27 | VDUE_ITS ---
Reason For Study: pain Right Proximal Right jugular vein is spontaneous, widely patent, phasic, with no intraluminal echogenicity noted. Right subclavian vein is spontaneous, widely patent, phasic, with no intraluminal echogenicity noted. Right Lower Arm Right radial vein is compressible. Right ulnar vein is compressible. Right Arm Right axillary vein is spontaneous, patent, phasic, competent, compressible and demonstrates augmentation. Right brachial vein is compressible. Right cephalic vein is compressible. Right basilic vein is compressible. Prelim to ED physician. Interpretation Summary Deep veins of the right upper extremity are patent and compressible segmentally. There is no evidence of deep vein thrombosis. The superficial veins of the right upper extremity, the basilic and cephalic veins, are patent and compressible. There is no evidence of right upper extremity superficial thrombophlebitis involving the veins imaged. Ordering Physician: Esvin Lopez Performed By: Shaggy Cheung RVT ?
--- NOTE | 2020-02-24 06:28 | ED.VIS.GEN ---
History of Present Illness Chief Complaint: Edema Narrative: Patient is a 39-year-old female who presents with right arm pain. She was sent by OB for evaluation. There was concern for possible DVT. Patient has had some edema of the arms and legs throughout her . She is 39 weeks . However for about 1 week she has had pain in her right arm. This became more severe about 2 to 3 hours before presentation to the emergency department. She states it felt like there is a lot of pressure from her elbow down and throbbing as well as a tingling sensation in her hand. She had tingling and paresthesias. She was diagnosed with Covid about 6 weeks ago. She states that she has had some shortness of breath especially with exertion throughout her but this has not been any worse over the last week than it had been. Given her extremity pain and Covid there is concern for possible DVT. No prior history of DVT. No fevers. No neck pain. Past Medical History - Allergies and Home Meds Allergies/Adverse Reactions: Allergies Penicillins Allergy (Intermediate, Verified 02/24/20 06:16) Rash Primary Care Physician: Farideh Christian MD [STAFF PHYSICIAN] - Past Medical History: None Smoking Status: Never smoker Review of Systems All systems negative except as indicated General: Denies: Fever Eyes: Denies: Visual changes - bilaterally Cardiovascular: Denies: Chest pain Respiratory: Reports: Dyspnea. Denies: Cough Gastrointestinal: Denies: Abdominal pain, Vomiting, Diarrhea Musculoskeletal: Reports: Swelling, Extremity Pain Skin: Denies: Rash Neurological: Denies: Headache Hematologic: Denies: Easy bruising Allergy: Denies: Uticaria Physical Exam Vital Signs/Narrative: Vital Signs Temp Pulse Resp BP Pulse Ox 02/24/20 06:17 98 F 82 18 124/88 H 99 Inital Vital Signs reviewed: Yes General: Well nourished Head: Normocephalic Eyes: EOMI ENT: Moist mucous membranes Neck: Supple Cardiovascular: Regular rate, Regular rhythm Respiratory: No distress, CTA bilaterally Abdomen: Soft, - - Gravid abdomen Extremities: - - Patient has some mild edema of the upper and lower extremities, no asymmetric edema, right upper extremity is nontender to palpation no erythema easily palpable radial pulse brisk capillary refill normal sensation to light touch Skin: Normal color Neurological: Alert, - - Normal strength and sensation of the right upper extremity 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 wrist flexion extension elbow flexion extension shoulder abduction and abduction Psychological: Normal affect Diagnostic/Tx/Re-eval Laboratory Results 02/24/20 02/24/20 02/24/20 06:30 06:30 06:30 WBC 5.8 RBC 3.74 L Hgb 11.5 L Hct 35.0 L MCV 93.6 MCH 30.7 MCHC 32.9 RDW Std Deviation 45.5 H RDW Coeff of Matty 13.3 Plt Count 179 MPV 10.5 Immature Gran % (Auto) 0.500 Neut % (Auto) 60.6 Lymph % (Auto) 25.7 Toombs % (Auto) 10.7 H Eos % (Auto) 2.2 Baso % (Auto) 0.3 Absolute Neuts (auto) 3.5 Absolute Lymphs (auto) 1.49 Nucleated RBC % 0 PT 11.6 L INR 0.9 Sodium 138 Potassium 4.1 Chloride 109 H Carbon Dioxide 22.0 Anion Gap 7 BUN 8 Creatinine 0.63 Estim Creat Clear Calc 118.90 Est GFR (MDRD) Af Amer 137 Est GFR (MDRD) Non-Af 113 BUN/Creatinine Ratio 12.8 Glucose 78 Calcium 8.4 L - Medical Decision Making Serum laboratory studies are unremarkable. EKG shows normal sinus rhythm at a rate of 71 no acute ischemic changes. At the time of this dictation a venous duplex of the right upper extremity is pending. If this is negative I believe the patient can be discharged home. Patient signed out to the oncoming physician to follow-up on this result. ED Disposition - Plan for ED Patient: Disposition: Home or Assisted Living Diagnosis: Edema, Right arm pain Instructions: ED Peripheral Edema, Bilateral Referrals: Farideh Christian MD [STAFF PHYSICIAN] -
[2020-02-24 06:41] LABS: Absolute Lymphocyte Count 1.49 X10^3/uL (0.83-4.51); Absolute Neutrophil Count 3.5 X10^3/uL (2.0-7.7); Basophil# 0.02 X10^3/uL; Basophil% 0.3 % (0-1); Eosinophil# 0.13 X10^3/uL; Eosinophils% 2.2 % (0-5); Hemoglobin 11.5 g/dL (12.0-15.0); Lymphocyte # 1.49 X10^3/ul (4.0); Lymphocyte % 25.7 % (19-41); Mean Corp Hgb Conc 32.9 g/dL (32-36); Mean Corpuscular Hgb 30.7 pg (27.0-32.0); Mean Corpuscular Volume 93.6 fL (81-99); Mean Platelet Vol. 10.5 fl (6.2-12.0); Monocyte# 0.62 X10^3/uL; Monocyte% 10.7 % (0-10); NRBC Flagged by Analyzer 0 % (0-5); Neutrophil # 3.51 X10^3/uL (2.7-7.7); Neutrophil % 60.6 % (47-70); Platelet Count 179 K/mm3 (150-450); RBC Distribution Width CV 13.3 % (11.6-14.6); RBC Distribution Width SD 45.5 fl (35.1-43.9); Red Blood Count 3.74 M/mm3 (4.2-5.4); White Blood Count 5.8 K/mm3 (4.4-11.0)
[2020-02-24 07:01] LABS: Anion Gap 7 (5-15); BUN 8 mg/dL (7-18); BUN/Creat Ratio 12.8 RATIO (10-20); Calcium,Total 8.4 mg/dL (8.5-10.1); Chloride 109 mmol/L (98-107); Creatinine, Serum 0.63 mg/dL (0.55-1.02); EST Glomerular Filtration Rate 113 mL/min (>60); Est Glom Filt Rate - Afr Amer 137 mL/min (>60); Glucose 78 mg/dL (74-106); International Normalized Ratio 0.9; Potassium 4.1 mmol/L (3.5-5.1); Prothrombin Time (Protime)PT. 11.6 SECONDS (11.7-14.9); Sodium Level 138 mmol/L (136-145)
[2020-02-24 09:23] VITALS: BP 134/62; PULSE 71; RESP 15; O2SAT 98
--- NOTE | 2020-02-24 10:22 | ED.RN ---
VASCULAR ULTRASOUND AT BEDSIDE.
[2020-02-24 10:57] VITALS: BP 124/76; PULSE 59; RESP 16; O2SAT 99
== END 2020-02-24 10:58 | disposition home or self-care (01) ==
PROVIDERS: Emergency Provider Emergency Medicine
DX: O99.891 Other specified diseases and conditions complicating pregnancy (principal); M79.601 Pain in right arm; R60.0 Localized edema; Z3A.39 39 weeks gestation of pregnancy; Z86.19 Personal history of other infectious and parasitic diseases; Z88.0 Allergy status to penicillin
CPT/HCPCS: 36415; 80048; 85025; 85610; 93005; 93971; 99282

== ENCOUNTER 2020-02-27 12:45 | Inpatient (IN) | payer BC, SELFPAY ==
[2020-02-26 11:07] VITALS: BMI 29.9
[2020-02-27] VITALS (39 sets, daily range): BP systolic 108–140; BP diastolic 49–79; PULSE 76–102; RESP 16; TEMP 36.6–37.3; O2SAT 91–100
--- NOTE | 2020-02-27 13:25 | HP.PCM_ITS ---
- Problem List (1) 34 weeks gestation of Status: Acute Comment: electronic covid test ordered 01/17/2020sc (scheduled for 02/21/2020 at 1630) (2) AMA (advanced maternal age) multigravida 35+ Status: Acute Comment: genetic counseling provided, low risk NIPT. plan 36 week growth scan (3) COVID-19 virus detected Status: Acute Comment: ASA and US growth- 01/31 47% (4) Influenza vaccine administered Status: Acute Comment: 11/02/2019 [place] (5) Status: Acute Qualifiers: Comment: genetic- low risk, carrier and NTD screening declined. 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 Required: No Is patient in pain?: No Allergies Penicillins Allergy (Intermediate, Verified 02/26/20 11:08) Rash Medications lactobacillus combination no.8 3 billion cell capsule 1 cap PO QDAY 03/03/17 [History Confirmed 02/26/20] loratadine 10 mg tablet 10 mg PO QDAY PRN 03/03/17 [History Confirmed 02/26/20] prenat.vits,annel,its-ngnn-bebrb 1 tab PO QDAY 03/03/17 [History Confirmed 02/26/20] Ca 600 mg-D3 800 unit-mag oxide 50 mc-Te-vowtwr-manganese-boron tablet 1 tab PO DAILY 02/01/20 [History Confirmed 02/26/20] aspirin 81 mg chewable tablet 81 mg PO DAILY 02/01/20 [History Confirmed 02/26/20] fluticasone propionate 50 mcg/actuation nasal spray,suspension 1 spray INTRANASAL DAILY 02/01/20 [History Confirmed 02/26/20] Last Menstral Period: 06/02/19 Zika: Zika virus screening: Negative : No PFSH PFSH Medical History Blighted ovum (Acute ~10/2018) Umbilical hernia (Resolved) Surgical History H/O dilation and curettage (Acute ~10/2018) S/P colonoscopy (Resolved) S/P wisdom tooth extraction (Resolved) Family History Mother Arthritis Hypertension Heart disease Sister Asthma Father , Lung cancer Lung cancer Social History (Updated 02/26/20 @ 11:[address] Jonelle Watt MD) adopted: No household members: family housing: house number of children: 3 current occupational status: employed current occupation: [employer] pets and animals: Yes sexually active: Yes Smoking Status: Never smoker second hand exposure: No alcohol intake: never substance use type: does not use caffeine: No what type of physical activity do you participate in: none frequency: does not exercise seatbelt use: always do you feel safe at home: Yes additional social history: Spouse: Jalen Blackmon- stay at home dad Pregancy History 5 Elective abortions Hx Para 3 Spontaneous abortions 1 Hx # Term Pregnancies 3 Ectopic pregnancies Hx # Pregnancies Multiple births # of living children 3 Past Pregnancies Del. Date Name GA/Weeks Outcome Route Bth Weight Infant Gen Labor Lgth Anesthesia Del Locatn Provider FOB Unknown 11/13/2009 Adalyn 39 live - full term 6lbs 10oz [facility] 11/01/2012 Victorino 39 live - full term 8lbs 6oz Male [facility] than [facility] 08/30/2017 Deyanira 37 live - full term 7 lbs Female 9 hours [facility]ural [facility] Jalen HPI 40 WK OB: Details: CINTHIA BLACKMON is a 39 year old who presents for routine OB visit. OB Visit STACIE Calculator Estimated Delivery Date Method Current WG Current Estimate 02/27/20 Ultrasound #1 39w 6d Other Estimates 03/08/20 LMP (Certain) 38w 3d Expected Delivery Route/Plan Labor Preferences- labor support person: jalen pain management options preferred: epidural cut cord/dad catch: : yes PP control planned: vasectomy discussed possible routes of delivery and associated risks: [] special requests: none Specific Issue/Plans flu vaccine: given 11/01 tdap vaccine:given rhogam: na LARC form signed: declined movement and labor precautions reviewed. Problem list reviewed and updated with the most current plan of care details and appropriate orders placed. Relevant counseling for the gestational age provided. Continue routine care and follow up unless otherwise noted in visit notes/problem list details Initial Weight: 164 lb Date EGA Weight BP Urine Prot Glucose FHR FuHt Pres Dilation Effaced St Visit Note 09/08/19 15w 3d 166 lb (+2 lb) 126/66 150 SM- no vb cramping us ordered 10/05/19 19w 2d 171 lb 8 oz (+7 lb 8 oz) 118/60 Negative Negative 145 SM- no vb lof good fm no regular ctx 11/02/19 23w 2d 173 lb (+9 lb) 100/76 Negative Negative 140 22 Sm- no vb lof good fm no regular ctx reviewed anatomy scan 11/27/19 26w 6d 176 lb (+12 lb) 114/70 Negative Negative 140 27 SM- no vb lof good fm no regular ctx cbc gct. 12/18/19 29w 6d 183 lb (+19 lb) 105/69 Negative Negative 155 30 SM- no vb lof good fm no regular ctx co fatigue. 01/03/20 32w 1d 187 lb (+23 lb) 110/82 Negative Negative 150 32 SM- no vb lof good fm no regular ctx 01/10/20 33w 1d 187 lb 4 oz (+23 lb 4 oz) 116/76 Negative Negative 150 33 GP - Problem visit for swelling and SOB with exertion. no LOF, VB, DFM, ctx. Pulse ox normal. Swelling equal bilaterally. Heart and lungs clear. Offered compression stockings, but declines. Reassurance provided. 02/01/20 36w 2d 193 lb (+29 lb) 112/82 Negative Negative 140 37 SM- no vb lof good fm no regular ctx 02/08/20 37w 2d 189 lb 6 oz (+25 lb 6 oz) 102/80 Negative Negative 140 38 SM- no vb lof good fm no regular ctx 02/15/20 38w 2d 193 lb (+29 lb) 124/56 Negative Negative 135 39 Cephalic 2 Sm- no vb lof good fm no regular ctx 02/21/20 39w 1d 194 lb 8 oz (+30 lb 8 oz) 120/78 Negative Negative 130 39 Cephalic 2 60 -2 GP - no LOF, VB, DFM, reg ular ctx. 02/26/20 39w 6d 194 lb 6 oz (+30 lb 6 oz) 134/78 Negative Negative 140 39 Cephalic 4 70 -2 GP - no LOF, VB, DFM, reg ular ctx. Discussed IOL for AMA. Patient to discuss with to determine time. Diagnostics Diagnostics Diagnostics Glucose 1 Hr 50 gm 133 mg/dL (70-140) 11/27/19 Hgb 11.5 g/dL (12.0-15.0) L 02/24/20 Hct 35.0 % (37-47) L 02/24/20 Details: HIV: Urine Culture: Sequential Screen: NIPT Screen: ROS Const Reports system reviewed and no additional complaints, except as docu Eyes Reports system reviewed and no additional complaints, except as docu ENT Reports system reviewed and no additional complaints, except as docu Card Reports system reviewed and no additional complaints, except as docu Resp Reports system reviewed and no additional complaints, except as docu GI Reports system reviewed and no additional complaints, except as docu Reports system reviewed and no additional complaints, except as docu, Denies abnormal vaginal bleeding, Denies painful urination, Denies pelvic pain, Denies vaginal discharge, Denies vaginal odor, Denies vaginal itching Musc Reports system reviewed and no additional complaints, except as docu Skin/Breast Reports system reviewed and no additional complaints, except as docu Neuro Yes system reviewed and no additional complaints, except as docu Psych Reports system reviewed and no additional complaints, except as docu Endo Reports system reviewed and no additional complaints, except as docu Exam Const General: cooperative, healthy appearing, comfortable, no acute distress, well developed, well groomed Nutritional Appearance: average body habitus, well nourished Orientation: alert, awake, oriented x3 HENMT Head: normal to inspection, normocephalic, atraumatic Eyes Pupils: PERRL, accommodation normal Resp Effort & Inspection: normal respiratory effort, able to speak in complete sentences, symmetric chest movement Cardio Rate: regular rate GI Palpation: soft, no guarding, no masses, nontender Skin General: no rashes or lesions noted, elasticity normal, turgor normal Neuro General: alert, awake, oriented x3 Cranial Nerves: CN's II-XI intact bilaterally, sense of smell intact, PERRL, accommodation normal, EOM intact bilaterally Speech: speech normal Gait: normal gait Psych Appearance: grossly normal, well kempt Mental Status: mental status grossly normal Mood: congruent mood Affect: normal affect Speech and Movement: speech and movement normal Attitude: cooperative Thought Process: normal Thought Content: normal Judgment: judgment good Results POC Urinalysis 2 Dip (Clinic) Office Urine Glucose Negative Last Edit by Stephania Santa on 02/26/20 11:13 Office Urine Protein Negative Last Edit by Stephania Santa on 02/26/20 11:13 Assessment & Plan Problems 1. 34 weeks gestation of Z3A.34 electronic covid test ordered 01/17/2020sc (scheduled for 02/21/2020 at 1630) 2. COVID-19 virus detected U07.1 ASA and US growth- 01/31 47% 3. Pt goes by Kari 4. Influenza vaccine administered Z23 11/02/2019 [place] 5. Supervision of high risk , antepartum O09.90 PRR STACIE 02/27/20 boy PC: Victorino Nunez Ava Spouse: Jalen 6. 39 weeks gestation of Z3A.39 genetic- low risk, carrier and NTD screening declined. nl anatomy scan 7. AMA (advanced maternal age) multigravida 35+ O09.529 genetic counseling provided, low risk NIPT. plan 36 week growth scan Patient presents IOL, plan management for with pitocin/AROM. Pain management: plans epidural. GBS negative. I have reviewed the [facility] and made any clinically relevant updates. UPDATE- I have seen the patient and performed any clinically relevant updates to the history and physical exam. Jonelle Watt MD
[2020-02-27] MEDS: Lactated Ringers 1,000 ML 20 ML IV (13:47)
[2020-02-27] MEDS: Oxytocin 30 units/NS 500 ml 30 UNITS/500 ML IV.SOLN IV (14:00)
[2020-02-27 14:03] LABS: Absolute Lymphocyte Count 1.76 X10^3/uL (0.83-4.51); Absolute Neutrophil Count 5.1 X10^3/uL (2.0-7.7); Basophil# 0.02 X10^3/uL; Basophil% 0.3 % (0-1); Eosinophil# 0.09 X10^3/uL; Eosinophils% 1.2 % (0-5); Hematocrit 36.1 % (37-47); Lymphocyte # 1.76 X10^3/ul (4.0); Lymphocyte % 23.1 % (19-41); Mean Corp Hgb Conc 33.2 g/dL (32-36); Mean Corpuscular Hgb 30.8 pg (27.0-32.0); Mean Corpuscular Volume 92.8 fL (81-99); Monocyte# 0.67 X10^3/uL; Monocyte% 8.8 % (0-10); NRBC Flagged by Analyzer 0 % (0-5); Neutrophil # 5.06 X10^3/uL (2.7-7.7); Neutrophil % 66.2 % (47-70); Platelet Count 204 K/mm3 (150-450); RBC Distribution Width CV 13.7 % (11.6-14.6); RBC Distribution Width SD 45.9 fl (35.1-43.9); Red Blood Count 3.89 M/mm3 (4.2-5.4); White Blood Count 7.6 K/mm3 (4.4-11.0)
[2020-02-27] MEDS: Lactated Ringers 500 ML 999 ML IV (15:40)
[2020-02-27] MEDS: fentaNYL-bupivacaine (epidural) 100 ML BAG EPIDURAL ×2 (16:34→20:31)
[2020-02-27] MEDS: Lactated Ringers 1,000 ML 200 ML IV (17:34)
[2020-02-27] MEDS: Oxytocin 30 units/NS 500 ml 30 UNITS/500 ML IV.SOLN 334 UNITS IV (21:31)
--- NOTE | 2020-02-27 21:53 | OP.PCM_ITS ---
Problem List (1) 34 weeks gestation of Status: Acute Comment: electronic covid test ordered 01/17/2020sc (scheduled for 02/21/2020 at 1630) (2) AMA (advanced maternal age) multigravida 35+ Status: Acute Comment: genetic counseling provided, low risk NIPT. plan 36 week growth scan (3) COVID-19 virus detected Status: Acute Comment: ASA and US growth- 01/31 47% (4) Influenza vaccine administered Status: Acute Comment: 11/02/2019 [place] (5) Status: Acute Qualifiers: Comment: genetic- low risk, carrier and NTD screening declined. nl anatomy scan (6) Supervision of high risk , antepartum Status: Acute Comment: PRR STACIE 02/27/20 boy PC: Victorino Nunez Ava Spouse: Misha Vaginal Delivery Maternal Presentation: Medically Indicated Induction 39-year-old G4, P3 at 40 weeks gestation admitted for induction of labor for advanced maternal age. Patient was induced with Pitocin and artificial rupture of membranes. Within 4 hours of rupture of membranes, patient made cervical change to complete dilation. Method of Induction: Pitocin, Amniotomy Medical Reason for Induction: Maternal Medical Condition: list: - Advanced maternal age Amniotic Membrane Rupture Type: Artificial Amniotic Fluid Description: Clear Final STACIE: 02/27/20 Gestational age: 40 Weeks and 0 Days Date of Procedure: 02/27/20 Pre-Operative Diagnosis: Term , induction of labor for advanced maternal age Post-Operative Diagnosis: Same Surgery/ Procedure Performed: Spontaneous Vaginal Delivery Type of Anesthesia: Epidural Description of Procedure: Patient began pushing and delivered the head in the CESARIO presentation. The head was delivered atraumatically and a loose nuchal cord was noted and delivered through. The anterior and posterior shoulders delivered without complication followed by the rest of the and the was placed on the maternal abdomen. Delayed cord clamping was employed for approximately 60 seconds. Cord was clamped and cut and gentle traction was applied to the cord and the placenta delivered spontaneously immediately following it was noted to be intact with three-vessel cord. The perineum and vagina were inspected and a midline second- degree perineal laceration from her prior scar was noted and repaired in the standard fashion using 3-0 Vicryl rapide suture. EBL was 200 cc. Patient and tolerated delivery well. Presentation: Vertex, CESARIO Placental Delivery Description: Spontaneous Placenta Disposition: [facility] Cord Vessel Description: 3 Vessels Nuchal Cord Compression: Without compression Cord Entanglement: Around neck x 1, loose Estimated Blood Loss: 200 cc Infant A gender: Male Episiotomy Description: None Laceration: Midline, Perineal Extension/lac, 2nd degree Medications given after delivery: IV Pitocin Multi Select Codes - Urinary/Genital Urinary/Genital CPT Codes: 20299 Vaginal Delivery [facility]
--- NOTE | 2020-02-27 21:57 | DCINST_ITS ---
Discharge Diet: No Restrictions Discharge Activity: Return to Normal Activity, May not drive while taking narcotic pain medications., May Shower May resume sexual activity in: 4-6 weeks Additional Activity Instructions:: Nothing in the vagina for 4-6 weeks. You may return to work/school in 6 weeks. Call your doctor if your incision/area has: Continuous Slow Oozing, Sudden Increased Bleeding, Increased Pain/ Swelling, Increased Redness, Foul Smelling Discharge Additional Instructions: If you experience any of the following, contact your healthcare provider. * Bleeding that soaks a pad every hour for 2 hours * Fever 100.4 or higher * Unrelieved incision or abdominal pain * Swelling, redness, discharge or bleeding from your incision or episiotomy site * Your incision begins to separate * Problems urinating (including inability to urinate or burning while urinating). * Visual changes * Severe headache * Flu-like symptoms * Pain or redness in one of both of your breasts * Pain, warmth, tenderness or swelling in your legs, especially the calf area * Frequent nausea and vomiting * Symptoms of depression or anxiety If you experience any of the following, call 911 or go to the nearest Emergency Room. * Chest pain * Problems breathing * Seizure activity * Partial or complete paralysis of a body part, slurred speech, weakness or drooping of the face, or a sudden inability to walk or hold your balance Allergies/Adverse Reactions: Allergies Penicillins Allergy (Intermediate, Verified 02/27/20 13:07) Rash Medications to take at Discharge lactobacillus combination no.8 3 billion cell capsule 1 cap PO QDAY 03/03/17 loratadine 10 mg tablet 10 mg PO QDAY PRN 03/03/17 prenat.vits,annel,rus-uyth-uffly 1 tab PO QDAY 03/03/17 Ca 600 mg-D3 800 unit-mag oxide 50 bp-Vi-djmnus-manganese-boron tablet 1 tab PO DAILY 02/01/20 aspirin 81 mg chewable tablet 81 mg PO DAILY 02/01/20 fluticasone propionate 50 mcg/actuation nasal spray,suspension 1 spray INTRANASAL DAILY 02/01/20 When: Call to make an appointment with your doctor in 6 weeks. If you had elevated Blood Pressure or 4th degree laceration you will need to be seen in 2 weeks. Primary Care Physician: Care Physician,No Primary [Primary Care Provider] - Test Results: Test results from this visit will be discussed in further detail at your follow- up appointment, if applicable.
--- NOTE | 2020-02-27 22:49 | NURSING ---
Call placed to Dr. Watt to notify that patient's IV was infiltrated. Plan is to initiate a new IV so patient can get full dose of Pitocin.
--- NOTE | 2020-02-27 23:41 | NURSING ---
Pitocin restarted after new IV was inserted. Patient reports that the IV was extremely painful and burning. No signs of infiltration. Patient states that she can't take it. IV removed.
--- NOTE | 2020-02-27 23:56 | NURSING ---
Dr. Watt notified of IV attempt. Per Dr. Watt, discontinue IV and IV Pitocin at this time.
[2020-02-28 03:38] VITALS: BP 122/61; PULSE 78; RESP 16; TEMP 36.7
--- NOTE | 2020-02-28 07:44 | PCM.PN.OB ---
Patient Problems: Active and Suspected Problems (Last Reviewed 02/26/20 @ 11:07 by Stephania Santa) 34 weeks gestation of (Acute) electronic covid test ordered 01/17/2020sc (scheduled for 02/21/2020 at 1630) COVID-19 virus detected (Acute) ASA and US growth- 01/31 47% Influenza vaccine administered (Acute) 11/02/2019 SC Supervision of high risk , antepartum (Acute) PRR STACIE 02/27/20 boy PC: Victorino Nunez Ava Spouse: Misha (Acute) genetic- low risk, carrier and NTD screening declined. nl anatomy scan AMA (advanced maternal age) multigravida 35+ (Acute) genetic counseling provided, low risk NIPT. plan 36 week growth scan Subjective: Patient doing well without complaints. Tolerating PO. Ambulating and voiding without difficulty. Breast feeding well. Denies chest pain, shortness of breath, calf pain/swelling, fevers, chills, lightheadedness. - Physical Exam Vitals/I&O's: Vital Signs Temp Pulse Resp BP Pulse Ox 98.1 F 78 16 122/61 H 98 02/28/20 03:38 02/28/20 03:38 02/28/20 03:38 02/28/20 03:38 02/27/20 23:09 Oxygen Delivery Method Room Air Weight: 192 lb Body Mass Index (BMI) 30.0 Intake and Output for Last 24 Hours 02/26/20 02/27/20 02/28/20 23:59 23:59 23:59 Intake Total 2639.67 / 2639.67 Output Total 450 / 450 600 / 600 Balance 2189.67 / 2189.67 -600 / -600 General: Alert, Oriented x3, Cooperative Abdomen: Soft, Non Tender, - - FF Below U Laboratory Results 02/27/20 13:47: WBC 7.6, RBC 3.89 L, Hgb 12.0, Hct 36.1 L, MCV 92.8, MCH 30.8, MCHC 33.2, RDW Std Deviation 45.9 H, RDW Coeff of Matty 13.7, Plt Count 204, MPV 11.0, Immature Gran % (Auto) 0.400, Neut % (Auto) 66.2, Lymph % (Auto) 23.1, [place] % (Auto) 8.8, Eos % (Auto) 1.2, Baso % (Auto) 0.3, Absolute Neuts (auto) 5.1, Absolute Lymphs (auto) 1.76, Nucleated RBC % 0 02/27/20 13:47: Blood Type A POSITIVE, Antibody Screen NEGATIVE Current Medications Acetaminophen (Acetaminophen 500 Mg Tablet) 1,000 mg PO Q8H PRN PRN PRN Reason: Pain Score 1-3 Bisacodyl (Bisacodyl 10 Mg Suppository) 10 mg RECTAL UD PRN PRN Reason: If no BM Dibucaine (Dibucaine 30 Gm Tube) 1 applic TOPICAL TID PRN PRN; Protocol PRN Reason: Discomfort Hydrocortisone (Hydrocortisone 2.5% Crm) 1 applic TOPICAL TID PRN PRN; Protocol PRN Reason: Discomfort Loratadine (Loratadine 10 Mg Tablet) 10 mg PO DAILY PRN PRN PRN Reason: allergy symptoms Methylergonovine Maleate (Methylergonovine 0.2 Mg/Ml Ampul) 0.2 mg IM X1 PRN PRN Reason: Excess bleeding/uterine atony Naproxen (Naproxen 250 Mg Tablet) 500 mg PO Q8H PRN PRN PRN Reason: Pain Score 1-3 Ondansetron HCl (Ondansetron 4 Mg/2 Ml Vial) 4 mg IV Q4H PRN PRN PRN Reason: Nausea Oxycodone HCl (Oxycodone 5 Mg Tablet) 5 - 10 mg PO Q4H PRN PRN PRN Reason: Pain Score 4-10 Senna/Docusate Sodium (Senna/Docusate Sodium 1 Tablet) 1 - 2 tablet PO DAILY PRN PRN PRN Reason: Constipation Simethicone (Simethicone 80 Mg Tablet) 80 mg PO PCHS PRN PRN Reason: Indigestion/Stomach pain Sodium Chloride (0.9% Saline Lock 10 Ml Syringe) 5 - 15 ml IV UD PRN PRN Reason: SALINE FLUSH Medical Necessity - Tobacco Use Smoking Status: Never smoker Assessment/Plan All Active Problems (Last Reviewed 02/26/20 @ 11:07 by Stephania Santa) 34 weeks gestation of (Acute) COVID-19 virus detected (Acute) Pt goes by Kari (Acute) Influenza vaccine administered (Acute) Supervision of high risk , antepartum (Acute) (Acute) AMA (advanced maternal age) multigravida 35+ (Acute) S/P colonoscopy (Resolved) S/P wisdom tooth extraction (Resolved) Umbilical hernia (Resolved) s/p PPD # 1 1. routine post delivery care 2. breast feeding- support given 3. rh positive 4. rubella immune
[2020-02-28 07:54] VITALS: BP 122/71; PULSE 77; RESP 16; TEMP 36.7
[2020-02-28] MEDS: Naproxen 250 MG Tablet 500 MG PO ×2 (08:09→16:11)
[2020-02-28] MEDS: Senna/Docusate Sodium 1 Tablet PO (08:18)
[2020-02-28 12:34] VITALS: BP 119/58; PULSE 77; RESP 16; TEMP 36.6
[2020-02-28] MEDS: Acetaminophen 500 MG Tablet 1000 MG PO ×2 (15:15→23:19)
[2020-02-28 16:05] VITALS: BP 115/58; PULSE 78; RESP 16; TEMP 36.8
[2020-02-28 20:22] VITALS: BP 126/49; PULSE 76; RESP 18; TEMP 36.6
[2020-02-29 01:58] VITALS: BP 118/57; PULSE 77; RESP 18; TEMP 36.6
[2020-02-29] MEDS: Naproxen 250 MG Tablet 500 MG PO (02:04)
[2020-02-29 07:51] VITALS: BP 114/69; PULSE 78; RESP 16; TEMP 36.3
--- NOTE | 2020-02-29 07:54 | PCM.PN.OB ---
Patient Problems: Active and Suspected Problems (Last Reviewed 02/26/20 @ 11:07 by Stephania Santa) Influenza vaccine administered (Acute) 11/02/2019 [place] Subjective: Patient doing well without complaints. Tolerating PO. Ambulating and voiding without difficulty. Breast feeding well. Denies chest pain, shortness of breath, calf pain/swelling, fevers, chills, lightheadedness. - Physical Exam Vitals/I&O's: Vital Signs Temp Pulse Resp BP Pulse Ox 97.9 F 77 18 118/57 L 98 02/29/20 01:58 02/29/20 01:58 02/29/20 01:58 02/29/20 01:58 02/27/20 23:09 Oxygen Delivery Method Room Air Weight: 192 lb Body Mass Index (BMI) 30.0 Intake and Output for Last 24 Hours 02/27/20 02/28/20 02/29/20 23:59 23:59 23:59 Intake Total 2639.67 / 2639.67 Output Total 450 / 450 600 / 600 Balance 2189.67 / 2189.67 -600 / -600 General: Alert, Oriented x3, Cooperative Abdomen: Soft, Non Tender, Non-Distended, - - FF below U Current Medications Acetaminophen (Acetaminophen 500 Mg Tablet) 1,000 mg PO Q8H PRN PRN PRN Reason: Pain Score 1-3 Last Admin: 02/28/20 23:19 Dose: 1,000 mg Documented by: Bisacodyl (Bisacodyl 10 Mg Suppository) 10 mg RECTAL UD PRN PRN Reason: If no BM Dibucaine (Dibucaine 30 Gm Tube) 1 applic TOPICAL TID PRN PRN; Protocol PRN Reason: Discomfort Hydrocortisone (Hydrocortisone 2.5% Crm) 1 applic TOPICAL TID PRN PRN; Protocol PRN Reason: Discomfort Loratadine (Loratadine 10 Mg Tablet) 10 mg PO DAILY PRN PRN PRN Reason: allergy symptoms Methylergonovine Maleate (Methylergonovine 0.2 Mg/Ml Ampul) 0.2 mg IM X1 PRN PRN Reason: Excess bleeding/uterine atony Naproxen (Naproxen 250 Mg Tablet) 500 mg PO Q8H PRN PRN PRN Reason: Pain Score 1-3 Last Admin: 12/31/20 02:04 Dose: 500 mg Documented by: Ondansetron HCl (Ondansetron 4 Mg/2 Ml Vial) 4 mg IV Q4H PRN PRN PRN Reason: Nausea Oxycodone HCl (Oxycodone 5 Mg Tablet) 5 - 10 mg PO Q4H PRN PRN PRN Reason: Pain Score 4-10 Senna/Docusate Sodium (Senna/Docusate Sodium 1 Tablet) 1 - 2 tablet PO DAILY PRN PRN PRN Reason: Constipation Last Admin: 02/28/20 08:18 Dose: 2 tablet Documented by: Simethicone (Simethicone 80 Mg Tablet) 80 mg PO PCHS PRN PRN Reason: Indigestion/Stomach pain Sodium Chloride (0.9% Saline Lock 10 Ml Syringe) 5 - 15 ml IV UD PRN PRN Reason: SALINE FLUSH Medical Necessity - Tobacco Use Smoking Status: Never smoker Assessment/Plan All Active Problems (Last Reviewed 02/26/20 @ 11:07 by Stephania Santa) Pt goes by Kari (Acute) Influenza vaccine administered (Acute) 34 weeks gestation of (Resolved) AMA (advanced maternal age) multigravida 35+ (Resolved) COVID-19 virus detected (Resolved) (Resolved) Supervision of high risk , antepartum (Resolved) S/P colonoscopy (Resolved) S/P wisdom tooth extraction (Resolved) Umbilical hernia (Resolved) s/p PPD # 2 1. routine post delivery care 2. breast feeding- support given 3. rh positive 4. rubella immune 5. home today
== END 2020-02-29 10:45 | disposition home or self-care (01) | DRG 807 ==
PROVIDERS: Admitting Provider Obstetrics & Gynecology; Visit Provider Obstetrics & Gynecology
DX: O69.81X0 Labor and delivery complicated by cord around neck, without compression, not applicable or unspecified (principal); Z37.0 Single live birth; O70.1 Second degree perineal laceration during delivery; Z3A.40 40 weeks gestation of pregnancy; Z79.82 Long term (current) use of aspirin; Z86.19 Personal history of other infectious and parasitic diseases
CPT/HCPCS: 59025; 59050; 85025; 86850; 86900; 86901; 99218; J7120; G0378

== ENCOUNTER → 2020-04-08 | Outpatient (CLI) | payer BC, SELFPAY ==
[2020-04-08 11:22] VITALS: BMI 26.4
[2020-04-12 20:45] LABS: HPV APTIMA, High Risk Negative (Negative)
== END | disposition home or self-care (01) ==
PROVIDERS: Referring Provider Obstetrics & Gynecology; Visit Provider Obstetrics & Gynecology
DX: Z12.4 Encounter for screening for malignant neoplasm of cervix (principal)
CPT/HCPCS: 87624; 88175; G0145

== ENCOUNTER → 2021-02-19 14:55 | Outpatient (CLI) | payer BC, SELFPAY ==
--- NOTE | 2021-02-19 15:31 | NEURO ---
NCS and/or EMG Patient Report Ordering Doctor: Jordan Hall DATE OF SERVICE: 02/19/21 Ivonne presents for electrodiagnostic testing of the upper limbs. She complains of numbness and tingling in the upper limbs. Electrodiagnostic Findings: Normal median and ulnar motor response bilaterally. Normal F-waves. Prolonged left median sensory latency at the wrist. Normal right median sensory response. Normal ulnar and radial sensory responses. Needle EMG shows no evidence of denervation with normal motor unit action potentials Electrodiagnostic Assessment: This is an abnormal study 1. Findings demonstrate right sided median neuropathy. This is consistent with a mild right carpal tunnel syndrome.
== END ==
PROVIDERS: PCP Internal Medicine; Referring Provider Physician Assistant; Visit Provider Physician Assistant
DX: R20.2 Paresthesia of skin (principal)
CPT/HCPCS: 95886; 95912

== ENCOUNTER → 2022-07-20 | Outpatient (CLI) | payer MEDICAID, SELFPAY ==
--- NOTE | 2022-07-20 13:55 | BI_ITS ---
MAMMOGRAPHY - BILATERAL SCREENING REASON FOR EXAM: Female, 42 years old. Routine annual screening examination. PERTINENT HISTORY: Non-contributory. TECHNIQUE: Digital bilateral breast linden (3D mammographic acquisition) in the CC and MLO projections. 2-D mediolateral oblique (MLO) and craniocaudad (CC) views of both breasts were obtained. CAD: Full Field Digital Mammography with Computer Added Detection was performed. COMPARISON: Mammogram from June 04, 2008. FINDINGS: Breast Composition: The breasts are extremely dense, which lowers the sensitivity of mammography. There are no dominant masses or suspicious calcifications. No other significant abnormalities are identified. There has been no significant change since the prior study. BI/SCRN MAMM (CAD)W/LINDEN BILAT IMPRESSION: Negative screening mammogram. Yearly followup mammogram recommended. (A) ASSESSMENT CATEGORY: BIRADS Category 1: Negative. A letter regarding these results will be sent to the patient by the facility within 30 days. Approximately 10% of breast cancers are not detected by mammography. A normal mammogram should not delay biopsy of a clinically suspicious abnormality. Electronically Signed: Saúl Walton MD at 16:57 EDT ,
[2022-07-31 14:10] LABS: HPV APTIMA, High Risk Negative (Negative)
== END | disposition home or self-care (01) ==
LOC: OPBI 13:53
PROVIDERS: PCP Internal Medicine; Referring Provider Obstetrics & Gynecology; Visit Provider Obstetrics & Gynecology
DX: Z01.419 Encounter for gynecological examination (general) (routine) without abnormal findings (principal); Z12.31 Encounter for screening mammogram for malignant neoplasm of breast
CPT/HCPCS: 77063; 77067; 87624; 88175; G0145

== ENCOUNTER 2022-10-18 19:45 | Emergency (ER) | payer MEDICAID, SELFPAY ==
[2022-10-18 19:46] VITALS: BP 105/57; PULSE 87; RESP 18; TEMP 36.6; O2SAT 97
--- NOTE | 2022-10-18 20:11 | EX.ED.DYSGE1 ---
HPI <MARLON Cerna - Last Filed: 10/18/22 21:12> History of Present Illness Chief Complaint: Lower Extremity Injury Narrative Narrative: Patient presenting today with pain to her bilateral feet that she has had since last night after she missed a step while going down the stairs and landed on her feet awkwardly. She denies hitting her head or any loss of consciousness. She reports pain to the top and bottom of her feet bilaterally. She is able to ambulate but it is painful. She denies any other injury. [facility] <MARLON Cerna - Last Filed: 10/18/22 21:12> [facility] Medical History (Updated 10/18/22 @ 20:43 by MARLON Cerna) Blighted ovum (~10/2018) Umbilical hernia Home Medications lactobacillus combination no.8 3 billion cell capsule (Adult Probiotic) 1 cap PO QDAY supplement 03/03/17 [History Last Taken 02/26/20] loratadine 10 mg tablet (Claritin) 10 mg PO QDAY PRN allergy symptoms 03/03/17 [History Last Taken 02/27/20] prenat.vits,annel,zfe-jspn-byvhc ( Vitamin tablet) 1 tab PO QDAY SUPPLEMENT 03/03/17 [History Last Taken 02/27/20] biotin 1 mg capsule 1 mg PO DAILY 07/15/21 [History Last Taken Unknown] cholecalciferol (vitamin D3) 50 mcg (2,000 unit) capsule 50 mcg PO DAILY 07/15/21 [History Last Taken Unknown] omega-3 fatty acids 1,000 mg capsule 1,000 mg PO DAILY 07/15/21 [History Last Taken Unknown] turmeric 400 mg capsule mg PO 07/15/21 [History Last Taken Unknown] zinc 50 mg tablet 50 mg PO DAILY 07/15/21 [History Last Taken Unknown] buspirone 7.5 mg tablet 7.5 mg PO BID #60 tabs 08/03/22 [Rx Last Taken Unknown] hydrocodone-acetaminophen 5-325mg 5mg-325mg 1 tab PO Q4H PRN PRN Pain 3 days #9 TABLETS 10/18/22 [Rx Last Taken Unknown] Allergy/AdvReac Type Severity Reaction Status Date / Time Penicillins Allergy Intermediate Rash Verified 10/18/22 19:49 Family History Mother Arthritis Hypertension Heart disease Sister Asthma Father , Lung cancer Lung cancer Surgical History H/O dilation and curettage (~10/2018) S/P colonoscopy S/P wisdom tooth extraction Social History adopted: No household members: family housing: house number of children: 3 current occupational status: employed current occupation: [employer] pets and animals: Yes sexually active: Yes Smoking Status: Never smoker second hand exposure: No alcohol intake: never substance use type: does not use caffeine: No what type of physical activity do you participate in: none frequency: does not exercise seatbelt use: always do you feel safe at home: Yes additional social history: Spouse: Misha Blackmon- stay at home dad ROS <MARLON Cerna - Last Filed: 10/18/22 21:12> ROS ED Constitutional Constitutional ED: Denies chills or fever(s) Cardiovascular Cardiovascular: Denies chest pain Respiratory/Chest Respiratory/Chest: Denies cough or dyspnea Gastrointestinal Gastrointestinal: Denies abdominal pain, nausea or vomiting Musculoskeletal Musculoskeletal: Reports arthralgias; Denies back pain or myalgias Integumentary Denies Abrasions Neurologic Neurologic: Denies paresthesias or weakness EXAM <MARLON Cerna - Last Filed: 10/18/22 21:12> Physical Exam Const Vital Signs: 10/18/22 19:46 Temperature 97.8 F Temperature Source Temporal Pulse Rate 87 Respiratory Rate 18 Blood Pressure 105/57 L Blood Pressure Mean 73 Pulse Ox 97 Oxygen Delivery Method Room Air Positive well nourished, well developed and no apparent distress General Appearance ED: well developed HEENT Reports normocephalic and head/scalp atraumatic Mouth ED: Yes moist mucous membranes normal Eyes PERRL and EOMs intact bilaterally Neck full ROM and supple Chest Wall inspection of chest normal Resp normal respiratory effort and clear to auscultation bilaterally Cardio regular rate and regular rhythm GI soft to palpation, non-tender, non-distended and no masses Back/Spine normal ROM and normal to inspection Extremity full ROM Extremity Narrative: Pain to palpation to the dorsal and plantar aspects of feet bilaterally, minimal edema to the dorsal aspect of the right foot as well as the right lateral malleolus without any pain to the lateral or medial malleolus bilaterally. DP pulses 2+ and equal bilaterally, good capillary refill, sensation intact. No ecchymosis. Neuro oriented x3, CN's II-XII intact bilaterally, moves all extremities, no focal motor deficits and no sensory deficits noted Sensorium / Orientation: awake and alert Psych mental status grossly normal and thought process normal Skin no rashes or lesions noted and no wounds <Dr. Rufino Murillo DO - Last Filed: 10/18/22 20:27> Physical Exam Const Vital Signs: 10/18/22 19:46 Temperature 97.8 F Temperature Source Temporal Pulse Rate 87 Respiratory Rate 18 Blood Pressure 105/57 L Blood Pressure Mean 73 Pulse Ox 97 Oxygen Delivery Method Room Air MDM <MARLON Cerna - Last Filed: 10/18/22 21:12> [facility] Narrative Medical decision making narrative: Patient presenting today with pain to her feet bilaterally after she missed a step yesterday while going down the stairs and landed on her feet awkwardly. She is able to ambulate but reports that it is painful. She denies any other injury. She is well-appearing and in no acute distress, vitals are unremarkable. X-rays of the feet bilaterally will be obtained to rule out fracture. She has been given ibuprofen. X-ray does show a fracture to the distal fifth metatarsal. She has been given a walking boot as well as a referral for podiatry. She will be given a few doses of [place] and is to also take ibuprofen for her pain. She has been given RICE instructions and will be discharged home in stable condition. She is comfortable with plan. I have personally performed a face to face assessment of the patient and have reviewed the REHAN Note. I performed a substantive portion of the visit including all aspects of the following. My griffith findings include: History is [patient presents the emergency department with complaint of injury to both feet. Patient states that her young son had crawled up the steps at her grandparents house and she retrieve them from off the steps and as she was coming down the step she missed the last step which caused her to fall onto her left side and injured her feet. Patient having pain with ambulation but able to bear weight. Denies any other injuries.] Exam is [HEENT-PERRLA, EOMI. Cranial nerves II through XII grossly intact. TMs clear. Mucous membranes moist. No adenopathy. Cardiovascular-regular rate and rhythm without murmur or ectopy Lungs-clear to auscultation, chest wall stable without crepitus or subcu emphysema Abdomen-normoactive bowel sounds, soft, nontender, no rebound or rigidity, no peritoneal signs. Extremities-intact ?4, normal range of motion, normal pulses. Evaluation of the feet reveals that patient does have tenderness palpation over the left fifth metatarsal. There is no significant ecchymosis or bruising or soft tissue swelling. She diffusely has pain to the foot as well. Evaluation of the right foot again reveals no ecchymosis or bruising but she does have diffuse tenderness to palpation. She is neurovascular intact. No pain at the ankles.] Medical Decison Making [ ] Other additions or changes: [None] Radiography X-Ray: Read by ED Physician and Read by Radiologist Diagnostic Testing: Clinical Impression(s) from Imaging Studies Foot X-Ray 10/18/22 20:13 IMPRESSION: Negative. Electronically Signed: Pato Patterson DO at 20:40 EDT , Foot X-Ray 10/18/22 20:15 IMPRESSION: Oblique, extra-articular fracture distal fifth metatarsal metadiaphysis. Electronically Signed: Pato Patterson DO at 20:39 EDT , <Dr. Rufino Murillo, DO - Last Filed: 10/18/22 20:27> [facility] Narrative Medical decision making narrative: Patient presenting today with pain to her feet bilaterally after she missed a step yesterday while going down the stairs and landed on her feet awkwardly. She is able to ambulate but reports that it is painful. She denies any other injury. She is well-appearing and in no acute distress, vitals are unremarkable. X-rays of the feet bilaterally will be obtained to rule out fracture. Has been given ibuprofen. I have personally performed a face to face assessment of the patient and have reviewed the REHAN Note. I performed a substantive portion of the visit including all aspects of the following. My griffith findings include: History is [patient presents the emergency department with complaint of injury to both feet. Patient states that her young son had crawled up the steps at her grandparents house and she retrieve them from off the steps and as she was coming down the step she missed the last step which caused her to fall onto her left side and injured her feet. Patient having pain with ambulation but able to bear weight. Denies any other injuries.] Exam is [HEENT-PERRLA, EOMI. Cranial nerves II through XII grossly intact. TMs clear. Mucous membranes moist. No adenopathy. Cardiovascular-regular rate and rhythm without murmur or ectopy Lungs-clear to auscultation, chest wall stable without crepitus or subcu emphysema Abdomen-normoactive bowel sounds, soft, nontender, no rebound or rigidity, no peritoneal signs. Extremities-intact ?4, normal range of motion, normal pulses. Evaluation of the feet reveals that patient does have tenderness palpation over the left fifth metatarsal. There is no significant ecchymosis or bruising or soft tissue swelling. She diffusely has pain to the foot as well. Evaluation of the right foot again reveals no ecchymosis or bruising but she does have diffuse tenderness to palpation. She is neurovascular intact. No pain at the ankles.] Medical Decison Making [ ] Other additions or changes: [None] Radiography Diagnostic Testing: Clinical Impression(s) from Imaging Studies Foot X-Ray 10/18/22 20:13 IMPRESSION: Negative. Electronically Signed: Pato Patterson DO at 20:40 EDT , Foot X-Ray 10/18/22 20:15 IMPRESSION: Oblique, extra-articular fracture distal fifth metatarsal metadiaphysis. Electronically Signed: Pato Patterson DO at 20:39 EDT , Three-view x-rays of the right foot obtained interpreted by myself as no evidence of acute fracture or dislocation Three-view x-rays of the left foot obtained interpreted by myself as fracture of the distal fifth metatarsal. Discharge Plan Triage Chief Complaint: Lower Extremity Injury ED Midlevel Provider: Ev Valera ED Provider: Rufino Murillo Dx/Rx/DC Orders Clinical Impression: Fracture of left foot, Fall, Contusion of foot, right Instructions: ED Fracture, Foot Prescriptions: New hydrocodone-acetaminophen 5-325 mg tablet 1 tab PO Q4H PRN PRN (Reason: Pain) 3 Days Qty: 9 0RF No Action lactobacillus combination no.8 [Adult Probiotic] 3 billion cell capsule 1 cap PO QDAY prenat.vits,annel,aqb-pqqe-qpesp [ Vitamin] tablet 1 tab PO QDAY loratadine [Claritin] 10 mg tablet 10 mg PO QDAY PRN (Reason: allergy symptoms) cholecalciferol (vitamin D3) 50 mcg (2,000 unit) capsule 50 mcg PO DAILY turmeric 400 mg capsule PO biotin 1 mg capsule 1 mg PO DAILY zinc 50 mg tablet 50 mg PO DAILY omega-3 fatty acids 1,000 mg capsule 1,000 mg PO DAILY buspirone 7.5 mg tablet 7.5 mg PO BID Qty: 60 12RF Primary Care Provider: Care Physician,No Primary Referrals: Dedra Amezcua MD [Med Staff - Chemical Lab Technician] - Pato Peña DPM [Med Staff - Active Staff] - 1 Week Activity Restrictions/Additional Instructions: Ice your feet several times a day for the next few days, alternate Tylenol and ibuprofen for pain, please follow-up with podiatry in 1 week. Disposition Disposition: Home, Self Care Discharge Date/Time: 10/18/22 21:04
--- NOTE | 2022-10-18 20:13 | RAD_ITS ---
INDICATION: injury EXAMINATION/TECHNIQUE: X-RAY - RIGHT XR Foot Min 3 Views 3 VIEWS COMPARISON: Contralateral left foot x-rays October 21, 2022. FINDINGS: SOFT TISSUES: No soft tissue swelling or gas. No radiopaque foreign body. BONES/JOINTS: No acute fracture or malalignment. Preservation of the joint space and no degenerative bony proliferative changes. No sclerotic or destructive changes observed. Small posterior and inferior calcaneal spurs. Accessory peroneus ossicle and fragmented trigonal ossicle. RAD/Foot min 3 Views IMPRESSION: Negative. Electronically Signed: Pato Patterson DO at 20:40 EDT ,
--- NOTE | 2022-10-18 20:15 | RAD_ITS ---
INDICATION: injury EXAMINATION/TECHNIQUE: X-RAY - LEFT XR Foot Min 3 Views 3 VIEWS COMPARISON: Contralateral right foot x-rays October 18, 2022. FINDINGS: SOFT TISSUES: Trace soft tissue swelling distal lateral foot. No radiopaque foreign body. BONES/JOINTS: Oblique fracture distal fifth metatarsal metadiaphysis with less than 2 mm of displacement. No intra-articular extension with normal appearance of the fifth metatarsal-phalangeal joint. Preservation of the joint space and no degenerative bony proliferative changes. No sclerotic or destructive changes observed. Posterior calcaneal spur. Small accessory peroneus ossicle. RAD/Foot min 3 Views IMPRESSION: Oblique, extra-articular fracture distal fifth metatarsal metadiaphysis. Electronically Signed: Pato Patterson DO at 20:39 EDT ,
[2022-10-18] MEDS: Ibuprofen 200 MG Tablet 400 MG PO (20:25)
[2022-10-18 20:27] VITALS: BMI 25.1
== END 2022-10-18 21:04 | disposition home or self-care (01) ==
PROVIDERS: Emergency Provider Emergency Medicine; Visit Provider Emergency Medicine
DX: S92.902A Unspecified fracture of left foot, initial encounter for closed fracture (principal); S90.31XA Contusion of right foot, initial encounter; X58.XXXA Exposure to other specified factors, initial encounter
CPT/HCPCS: 73630; 99283

== ENCOUNTER 2023-05-03 11:30 | Outpatient (RCR) | payer MEDICAID, SELFPAY ==
--- NOTE | 2023-02-04 15:23 | HP.PTEVAL ---
Patient's Visit Information Visit Information Visit Information: CINTHIA LEWIS is a 42 year old F referred to Physical Therapy by Dr. Pato Peña DPM with a diagnosis of L plantar fascitis/5th met fx. Date of Evaluation: 02/04/23 Physical Therapist: Keyla Bailon MPT Visit Plan Frequency: 2x /Week Duration: 4 Weeks Plan: 2X/ week for 4 weeks for L plantar fascia stretching, US, B gastroc foam/stick rolling, B gastroc stretching, gait training, HEP: towel gastroc stretch and seated heel and toe raises Subjective Subjective: Pt goes by [place]. At the end of Sep she was out of state and woke up in the middle of the night to get her 2 year old son and picked him up and went down the steps and skipped a step and landed hard and went to the L and sprained both feet and fx her L foot. Around [place] she was able to walk without the boot and felt like she was walking on rocks in bare feet. She got orthotics. She went back to the Dr and has PF on the arch to heel and not a lot of strength in Achilles tendon. She is having walking issues. She is stretching and PF is not going away. It hurts after sleeping along time or not moving for a long time it is a hard start. She is having trouble stretching into DF on the R. Stairs: she goes down the steps SW and goes 2 feet to stair with a railing. Pain L foot pain: Pain Intensity (Out of 10): 2 Pain Intensity Range: 7 R foot pain: Pain Intensity (Out of 10): 4 Pain Intensity Range: 7 Objective Objective: Gait: Decrease stance time on the L LE Pt is able to heel and toe raise with increase pain in R ankle and L arch Stairs: up stairs recip with 1 railing and down stairs leading with the L leg and followed with the R leg two feet to a stair as she can not bend her R ankle to descend the stairs with a railing LE MMT: R ankle AROM:3, 4 1, 21, 6 L ankle AROM: 2 DF and 42 PF, INV 12 and EV 5 R ankle MMT R DF 8.4, PF 12.1, INV 10.3, EV 6.2 L ankle MMT: DF 7.2, PF 7.2, INV 4.9, EV 5.7 Palpation: Tender along the L Plantar Fascia on the L medial side of her L foot Tight B gastroc Balance/Special Test Scores Lower Extremity Functional Score: 44 Goals Goal 1:: I HEP Goal Time Frame: 4-6 Weeks Goal 2:: Increase L ankle AROM (at the time of the eval: R ankle AROM:3, 4 1, 21, 6 L ankle AROM: 2 DF and 42 PF, INV 12 and EV 5). Goal Time Frame: 4-6 Weeks Goal 3:: Increase L ankle strength (at the time of the eval: R ankle MMT R DF 8.4, PF 12.1, INV 10.3, EV 6.2 L ankle MMT: DF 7.2, PF 7.2, INV 4.9, EV 5.7). Goal Time Frame: 4-6 Weeks Goal 4:: Decrease sx of pain to be able to walk with normal gait pattern without pain Goal Time Frame: 4-6 Weeks Rehabilitation Potential Rehabilitation Potential: Good Anticipated Interventions Patient/Client Instruction: Educate patient on: Condition and Plan of Care For the Purpose of:: To decrease pain, To decrease swelling/inflammation, To increase ROM, To improve nutrient delivery to tissue, To improve muscle performance and motor function, To improve ability to perform ADL's, To increase tolerance to activity/condition/position, To improve performance and independence with ADL's, To improve ability of physical actions for home/community/work/leisure, To improve gait and locomotor functions, To improve health of tissue, To decrease soft tissue restriction, To increase flexibility/ROM, To improve balance and To improve safety with gait Therapeutic Exercise to Include: Strength training, Endurance training, Balance training, Flexibilty training, Gait and locomotor training, Passive ROM and Active ROM For the Purpose of:: To decrease pain, To increase ROM, To improve nutrient delivery to tissue, To improve muscle performance and motor function, To improve ability to perform ADL's, To increase tolerance to activity/condition/position, To improve performance and independence with ADL's, To decrease level of supervision to perform tasks, To improve ability of physical actions for home/community/work/leisure, To improve gait and locomotor functions, To improve health of tissue, To decrease soft tissue restriction and To increase flexibility/ROM Functional Training to Include: Gait training For the Purpose of:: To improve gait and locomotor functions Manual Therapy Techniques to Include: Mobilization, Passive ROM and Soft tissue mobilization For the Purpose of:: To decrease pain, To increase ROM, To improve nutrient delivery to tissue, To improve muscle performance and motor function, To improve ability to perform ADL's, To increase tolerance to activity/condition/position, To improve ability of physical actions for home/community/work/leisure, To improve gait and locomotor functions, To improve health of tissue, To decrease soft tissue restriction and To increase flexibility/ROM Ultrasound (thermal/non thermal): Yes For the Purpose of:: To decrease pain, To decrease swelling/inflammation, To increase ROM and To improve nutrient delivery to tissue Text: Thank you for the opportunity to evaluate your patient. For Medicare and Medicare HMO plans, please review the plan of care and approve it. It will need to be FAXED BACK to us at [phone] for Medicare purposes. For Medicare only, by signing this I certify the plan of care. Please let me know if there are questions or concerns regarding this plan of care. Physician Signature: Date:
--- NOTE | 2023-03-23 10:56 | HP.PTREVAL_ITS ---
Re-Evaluation Intro: Dr. Pato Peña, DPM, It has been my pleasure to treat CINTHIA LEWIS over the last 9 visits for L plantar fascitis/5th met fx. Please see the progress note below for an update on the physical therapy plan of care! Subjective Subjective: Pt returns to her Dr on Wednesday. She still has R achilles pain when she is moving it. She feels that she needs more therapy and feels that she is getting somewhere. She is able to walk down the steps better but still hung up with the R ankle pain. She still feels pain on the L but just not as often. She goes back to her Dr jimbo. Objective Objective/Function: R ankle AROM0, 0,21, 24, 10 L ankle AROM: 2 DF and 42 PF, INV 12 and EV 5). GAIT: walks with decrease push off on the R LE Plan Plan Plan: Request additional visits once pt sees Dr on Wednesday and a new order is obtained. Pt to call in on Wednesday 2X/ week for 4 weeks for L plantar fascia stretching, US, B gastroc foam/stick rolling, B gastroc stretching, gait training, HEP: towel gastroc stretch and seated heel and toe raises2 Balance/Gait/Functional tests Balance/Special Test Scores Lower Extremity Functional Score: 58 Goals Goals Goal 1:: I HEP Goal Time Frame: 4-6 Weeks Goal Progress: Goal Met Goal 2:: Increase L ankle AROM (at the time of the eval: R ankle AROM:3, 4 1, 21, 6 L ankle AROM: 2 DF and 42 PF, INV 12 and EV 5). Goal Time Frame: 4-6 Weeks Goal Progress: Progressing Goal 3:: Increase L ankle strength (at the time of the eval: R ankle MMT R DF 11.2 PF 12.5, INV 10.5, EV 13.2 L ankle MMT: DF 7.2, PF 7.2, INV 4.9, EV 5.7 Goal Time Frame: 4-6 Weeks Goal Progress: Progressing Goal 4:: Decrease sx of pain to be able to walk with normal gait pattern without pain Goal Time Frame: 4-6 Weeks Goal Progress: Progressing Anticipated Interventions Anticipated Interventions Patient/Client Instruction: Educate patient on: Condition and Plan of Care For the Purpose of:: To decrease pain, To decrease swelling/inflammation, To increase ROM, To improve nutrient delivery to tissue, To improve muscle performance and motor function, To improve ability to perform ADL's, To increase tolerance to activity/condition/position, To improve performance and independenc e with ADL's, To improve ability of physical actions for home/community/work/leisure, To improve gait and locomotor functions, To improve health of tissue, To decrease soft tissue restriction, To increase flexibility/ROM, To improve balance and To improve safety with gait Therapeutic Exercise to Include: Strength training, Endurance training, Balance training, Flexibilty training, Gait and locomotor training, Passive ROM and Active ROM For the Purpose of:: To decrease pain, To increase ROM, To improve nutrient delivery to tissue, To improve muscle performance and motor function, To improve ability to perform ADL's, To increase tolerance to activity/condition/position, To improve performance and independence with ADL's, To decrease level of mo pervision to perform tasks, To improve ability of physical actions for home/community/work/leisure, To improve gait and locomotor functions, To improve health of tissue, To decrease soft tissue restriction and To increase flexibility/ROM Functional Training to Include: Gait training For the Purpose of:: To improve gait and locomotor functions Manual Therapy Techniques to Include: Mobilization, Passive ROM and Soft tissue mobilization For the Purpose of:: To decrease pain, To increase ROM, To improve nutrient delivery to tissue, To improve muscle performance and motor function, To improve ability to perform ADL's, To increase tolerance to activity/condition/position, To improve ability of physical actions for home/community/work/leisure, To improve gait and locomotor functions, To improve health of tissue, To decrease soft tissue restriction and To increase flexibility/ROM Ultrasound (thermal/non thermal): Yes For the Purpose of:: To decrease pain, To decrease swelling/inflammation, To increase ROM and To improve nutrient delivery to tissue Re-Evaluation Ending Re-evaluation ending: Please do not hesitate to contact me at [phone] by phone or if you have questions or concerns regarding this new plan of care! Sincerely, Keyla Bailon, MPT
--- NOTE | 2023-05-03 12:01 | HP.PTDCSUM ---
Discharge Summary D/C summary: It has been my pleasure to treat CINTHIA LEWIS referred by Dr. Pato Peña DPM, with the diagnosis of L plantar fascitis/5th met fx for a total of 17 visit(s). Discharge Date: 05/03/23 Please see the following information for a summary of their discharge status. Subjective Subjective: Pt is feeling good. She has no pain. She walked a few miles yesterday but had slight pain in the Right. She does stairs without pain. She goes back to the Dr at the end of the month. She is doing tennis ball on her feet and stretching against the wall. Pain L foot pain: Pain Intensity (Out of 10): 2 R foot pain: Pain Intensity (Out of 10): 2 Overall Improvement % Improvement: 90 Objective Objective/Function: R ankle MMT R DF 17.7 PF 16.3, INV 8.6, EV 9.6 L ankle MMT: DF 12.7, PF 11.6 INV 8.2, EV 9.5 R ankle AROM:4, 40 1, 45, 8 L ankle AROM: 4 DF and 45 PF, INV 27 and EV 9 Goals Goal 1:: I HEP Goal Progress: Goal Met Goal 2:: Increase L ankle AROM (at the time of the eval: R ankle AROM:3, 4 1, 21, 6 L ankle AROM: 2 DF and 42 PF, INV 12 and EV 5). Goal Progress: Goal Met Goal 3:: Increase L ankle strength (at the time of the eval: R ankle MMT R DF 11.2 PF 12.5, INV 10.5, EV 13.2 L ankle MMT: DF 7.2, PF 7.2, INV 4.9, EV 5.7 Goal Progress: Goal Met Goal 4:: Decrease sx of pain to be able to walk with normal gait pattern without pain Goal Progress: Progressing Plan Plan: DC PT to HEP Gave blue band to increase exercises at home D/C Information Discharge Comments: DC PT to HEP d/c sentence: If there are questions or concerns regarding this patient's physical therapy, please feel free to call me at [phone]. Thank you for the referral of this patient. Sincerely, Keyla Bailon, MPT Balance/Gait/Functional tests Balance/Special Test Scores Lower Extremity Functional Score: 63 Improvement % Improvement: 90
== END 2023-05-03 12:37 | disposition home or self-care (01) ==
LOC: PT 11:30
PROVIDERS: Referring Provider Student in an Organized Health Care Education/Training Program; Visit Provider Student in an Organized Health Care Education/Training Program
DX: M72.2 Plantar fascial fibromatosis (principal); S92.352D Displaced fracture of fifth metatarsal bone, left foot, subsequent encounter for fracture with routine healing
CPT/HCPCS: 97035; 97110; 97140; 97161; 97530

== ENCOUNTER → 2023-07-27 | Outpatient (CLI) | payer MEDICAID, SELFPAY ==
--- NOTE | 2023-07-27 14:04 | BI_ITS ---
MAMMOGRAPHY - BILATERAL SCREENING REASON FOR EXAM: Female, 43 years old. Routine annual screening examination. PERTINENT HISTORY: Non-contributory. TECHNIQUE: Digital bilateral breast linden (3D mammographic acquisition) in the CC and MLO projections. 2-D mediolateral oblique (MLO) and craniocaudad (CC) views of both breasts were obtained. CAD: Full Field Digital Mammography with Computer Added Detection was performed. COMPARISON: Comparison is made with prior study July 20, 2022. FINDINGS: Breast Composition: The breasts are extremely dense, which lowers the sensitivity of mammography. There are no dominant masses or suspicious calcifications. No other significant abnormalities are identified. There has been no significant change since the prior study. BI/SCRN MAMM (CAD)W/LINDEN BILAT IMPRESSION: Stable bilateral screening mammogram. Yearly follow-up mammogram recommended. (A) ASSESSMENT CATEGORY: BIRADS Category 1: Negative. A letter regarding these results will be sent to the patient by the facility within 30 days. Approximately 10% of breast cancers are not detected by mammography. A normal mammogram should not delay biopsy of a clinically suspicious abnormality. [id number] Electronically Signed: Chidi Thompson MD at 14:53 EDT ,
== END | disposition home or self-care (01) ==
LOC: OPBI 14:02
PROVIDERS: Referring Provider Obstetrics & Gynecology; Visit Provider Obstetrics & Gynecology
DX: Z12.31 Encounter for screening mammogram for malignant neoplasm of breast (principal)
CPT/HCPCS: 77063; 77067

== ENCOUNTER → 2024-08-31 | Outpatient (CLI) | payer MEDICAID, SELFPAY ==
--- NOTE | 2024-08-31 13:00 | BI_ITS ---
EXAM: SCRN MAMM (CAD)W/LINDEN BILAT DATE: 08/31/2024 CLINICAL HISTORY: F, Age 44 y/o , SCREENING FOR BREAST CANCER TECHNIQUE: SCRN MAMM (CAD)W/LINDEN BILAT COMPARISON: Prior exam(s) dated 07/19/2023, 07/20/2022. FINDINGS: TISSUE DENSITY: The breasts are heterogeneously dense, which may obscure small masses. The mammogram demonstrates that the patient has dense breasts. Supplemental screening with whole breast ultrasound or MRI may be considered for further evaluation. Bilateral Breast Mammographic Findings: No significant masses, calcifications or other abnormalities are identified. BI/SCRN MAMM (CAD)W/LINDEN BILAT IMPRESSION: There is no mammographic evidence of malignancy. OVERALL FINAL ASSESSMENT BI-RADS 1: NEGATIVE. RECOMMEND ANNUAL MAMMOGRAPHIC SCREENING. RECOMMENDATION: Routine annual follow-up in 1 Year A letter with findings and recommendations will be mailed to the patient. Reading Location: [id number]
--- NOTE | 2024-08-31 13:00 | BI_ITS ---
EXAM: SCRN MAMM (CAD)W/LINDEN BILAT DATE: 08/31/2024 CLINICAL HISTORY: F, Age 44 y/o , SCREENING FOR BREAST CANCER TECHNIQUE: SCRN MAMM (CAD)W/LINDEN BILAT COMPARISON: Prior exam(s) dated 07/19/2023, 07/20/2022. FINDINGS: TISSUE DENSITY: The breasts are heterogeneously dense, which may obscure small masses. The mammogram demonstrates that the patient has dense breasts. Supplemental screening with whole breast ultrasound or MRI may be considered for further evaluation. Bilateral Breast Mammographic Findings: No significant masses, calcifications or other abnormalities are identified. BI/SCRN MAMM (CAD)W/LINDEN BILAT IMPRESSION: There is no mammographic evidence of malignancy. OVERALL FINAL ASSESSMENT BI-RADS 1: NEGATIVE. RECOMMEND ANNUAL MAMMOGRAPHIC SCREENING. RECOMMENDATION: Routine annual follow-up in 1 Year A letter with findings and recommendations will be mailed to the patient. Reading Location: [id number]
--- OUTSIDE RECORDS SUMMARY | 2024-08-31 22:51 | XMS RPT_ITS | CCD ---
Author Organization [facility] Care Team Providers Care Purchasing Supervisor Name Role Phone Seven NICOLE, Joleen Primary Care Provider Dr. Joleen Rice Primary Care Provider Dr. Joleen Rice Referring Provider [phone] Dr. 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 Joleen Rice MD Primary Care Provider Dr. Joleen Rice MD Referring Provider Dr. Chris Coats MD Attending Provider GANTA, JOLEEN Primary Care Unavailable GANTA, JOLEEN Attending Unavailable GANTA, JOLEEN Primary Care Unavailable GANTA, JOLEEN Referring Unavailable GANTA, JOLEEN Primary Care Unavailable GANTA, JOLEEN Referring Unavailable GANTA, JOLEEN Primary Care Unavailable Dr. Farideh Christian MD Attending Provider [phone] Dr. Farideh Christian MD Referring Provider [phone] Care Physician, No Primary Referring Provider Un available Ganta, Joleen Primary Care Unavailable Ganta, Joleen Referring Unavailable Chris Coats Attending Unavailable Care Physician, No Primary Referring Unava ilable Ganta, Joleen Primary Care Unavailable Farideh Christian Attending Unavailable Ganta, Joleen Primary Care Unavailable Farideh Christian Attending Unavailable Farideh Christian Referring Unavailable Allergies Allergy Classification Reported Allergen(s) Allergy Type Date of Onset Reaction(s) Facility (15 sources) Amoxicillin; Translations: [AMOXICILLIN] Drug Allergy 8 Rash, Hives, Swelling [facility] (3 sources) Penicillins; Translations: [PENICILLINS] Propensity to adverse reactions 8 Rash, Hives, Swelling [facility] (8 sources) Penicillins Propensity to adverse reactions 8 Rash, Hives, Swelling [facility] (4 sources) Penicillins Allergy to substance 3 Rash [facility] (4 sources) Penicillins Propensity to adverse reactions 8 Rash, Hives, Swelling [facility] (1 source) Penicillins Drug allergy (disorder) 5 [facility] Repository Medications Current Medications Medication Drug Class(es) Dates Sig (Normalized) Sig (Original) busPIRone hydrochloride 7.5 mg oral tablet (20 sources) Start: 03-24-2023 take 1 tablet by mouth twice daily busPIRone (BUSPAR) 7.5 mg tablet Take 7.5 mg by mouth two times a day. 03/24/2023 Active Start: 02-16-2023 End: 08-31-2024 take 1 tablet by mouth three times daily Buspirone 7.5 mg tablet Active 7.5 mg PO THREE TIMES A DAY 90 August 31, 2024 1:54pm Start: 08-03-2022 End: 02-16-2023 take 1 tablet by mouth twice daily Buspirone 7.5 mg tablet Discontinued 7.5 mg PO TWICE A DAY 60 August 03, 2022 1:12pm February 16, 2023 1:14pm Start: 07-20-2022 End: 08-03-2022 take 1 tablet by mouth twice daily Buspirone 5 mg tablet Discontinued 5 mg PO TWICE A DAY 60 July 20, 2022 12:00am August 03, 2022 1:13pm Comment on above: Take 7.5 mg by mouth three times a day. cholecalciferol 0.05 mg oral capsule (4 sources) Vitamin D Start: 07-16-19 take 1 capsule by mouth once daily Cholecalciferol (Vitamin D3) 50 mcg (2,000 unit) capsule Active 50 ug PO DAILY July 15, 2021 12:00am ELDERBERRY FRUIT (14 sources) elderberry fruit (ELDERBERRY ORAL) Take by mouth once daily. Active elderberry fruit (ELDERBERRY ORAL) Take by mouth once daily. 0 Active Comment on above: Take by mouth once d aily. ketotifen 0.25 mg/ml ophthalmic solution (14 sources) Histamine-1 Receptor Inhibitor Start: 08-29-2016 ketotifen fumarate (ALLERGY EYE) 0.025 % (0.035 %) ophthalmic solution Use 1 Drop in both eyes twice daily. 1 Bottle 5 08/29/2016 Active Start: 08-29-2016 ketotifen fuma rate (ALLERGY EYE) 0.025 % (0.035 %) ophthalmic solution Use 1 Drop in both eyes twice daily. 1 Bottle 5 08/29/2016 Active Comment on above: Use 1 Drop in both e yes twice daily. Lactobacillus acidophilus (14 sources) LACTOBACILLUS AC IDOPHILUS (PROBIOTIC ORAL) Take by mouth once daily. Active LACTOBACILLUS AC IDOPHILUS (PROBIOTIC ORAL) Take by mouth once daily. 0 Active Comment on above: Take by mouth once d aily. Lactobacillus Combination No.8 (Adult Probiotic) 3 billion cell capsule (4 sources) Start: 8 take 3 capsules by mouth once daily Lactobacillus Combination No.8 (Adult Probiotic) 3 billion cell capsule Active 1 NMA PO daily March 03, 2017 1:00am supplement Start: 03-03-2017 take 3 capsules by m outh once daily Lactobacillus Combination No.8 (Adult Probiotic) 3 billion cell capsule Active 1 NMA PO daily March 03, 2017 1:00am Start: 03-03-2017 Lactobacillus Combination No.8 (Adult Probiotic) 3 billion cell capsule Active 1 CAP PO daily March 03, 2017 12:00am Start: 03-03-2017 Lactobacillus Combination No.8 (Adult Probiotic) 3 billion cell capsule Active 1 CAP PO daily March 03, 2017 1:00am loratadine 10 mg oral tablet (18 sources) Start: 08-29-2016 take 1 tablet by mouth once daily as needed Loratadine (Claritin) 10 mg tablet Active 10 mg PO daily as needed for allergy symptoms March 03, 2017 1:00am Comment on above: Take 1 tablet by reema th once daily. multivitamins(DAILY MULTIPLE TAB) (14 sources) Start: 12-01-2007 multivitamins( AKHIL Y MULTIPLE TAB) Take by mouth. 0 0 12/01/2007 Active Start: 12-01-2007 multivitamins( DAILY MULTIPLE TAB) Take one(1) tablet daily. 0 0 12/01/2007 Active Comment on above: Take one(1) tablet d aily. [place]-3 Fatty Acids (2 sources) Start: 07-15-2021 take 1000 mg by mouth once daily [place]-3 Fatty Acids Active 1000 MG PO DAILY July 14, 2021 11:00pm Start: 07-15-2021 take 1000 mg by mouth once allen ly [place]-3 Fatty Acids Active 1000 MG PO DAILY July 15, 2021 12:00am [place]-3 Fatty Acids 1,000 mg capsule (2 sources) Start: 07-15-2021 take 1 capsule by mouth once daily [place]-3 Fatty Acids 1,000 mg capsule Active 1000 mg PO DAILY July 15, 2021 12:00am Prenat.Vits,Annel,Min-Ir on-Folic ( Vitamin) tablet (4 sources) Start: 03-03-2017 Prenat.Vits,Ca l,Min-Iro n-Folic ( Vitamin) tablet Active 1 {tbl} PO daily March 03, 2017 1:00am SUPPLEMENT Start: 03-03-2017 Prenat.Vits,Ca l,Ifi-Kxea-Efjko ( Vitamin) tablet Active 1 {tbl} PO daily March 03, 2017 1:00am Start: 03-03-2017 take 1 tablet by reema th once daily Prenat.Vits,Annel,Bzl-Tkhg-Csrkm ( Vitamin) tablet Active 1 TABLET PO daily March 03, 2017 12:00am Start: 03-03-2017 take 1 tablet by reema th once daily Prenat.Vits,Annel,Dyd-Jbby-Qbwpj ( Vitamin) tablet Active 1 TABLET PO daily March 03, 2017 1:00am triamcinolone acetonide 1 mg/ml topical cream (7 sources) Corticosteroid Start: 04-15-2023 triamcinolone acetonide (KENALOG) 0.1 % cream Indications: Contact dermatitis, unspecified contact dermatitis type, unspecified trigger Apply 1 application to affected area two times a day. Apply to affected area. Location: arms 30 g 04/15/2023 Active Comment on above: Apply 1 application to affected area two times a day. Apply to affected area. Location: arms 24 hr venlafaxine 75 mg extended release oral capsule (10 sources) Serotonin and Norepinephrine Reuptake Inhibitor Start: 07-22-2023 End: 08-31-2024 take 1 capsule by mouth once daily Venlafaxine (Effexor Xr) 75 mg capsule,extended release 24hr Active 75 mg PO DAILY 30 August 31, 2024 1:55pm Start: 07-22-2023 End: 08-31-2024 take 1 capsule by mouth once daily Venlafaxine (Effexor Xr) 37.5 mg capsule,extended release 24hr Discontinued 37.5 mg PO DAILY 7 July 22, 2023 12:00am August 31, 2024 1:30pm Completed/Discontinued Medications Medication Drug Class(es) Dates Sig (Normalized) Sig (Original) acetaminophen 325 mg / HYDROcodone bitartrate 5 mg oral tablet (3 sources) Opioid Agonist Start: 10-18-2022 End: 07-22-2023 Hydrocodone-Acetami nophen 5-325 mg tablet Discontinued 1 {tbl} PO EVERY 4 HOURS NEEDED as needed for Pain 9 3 0 October 18, 2022 July 22, 2023 1:23pm Fracture of left foot Unspecified fracture of left foot, initial encounter for closed fracture Start: 10-18-2022 take 1 tablet by reema th every four hours as needed Hydrocodone-Acetaminophen Active 1 TABLE T PO EVERY 4 HOURS NEEDED 9 3 October 18, 2022 aspirin 81 mg chewable tablet (4 sources) Platelet Aggregation Inhibitor, Nonsteroidal Anti-inflammatory Drug Start: 02-01-2020 End: 07-15-2021 take 1 tablet by mouth once daily Aspirin 81 mg tablet,chewable Discontinued 81 mg PO DAILY February 01, 2020 1:00am July 15, 2021 3:46pm clot prevention biotin 1 mg oral capsule (8 sources) Start: 07-15-2021 End: 07-22-2023 take 1 capsule by mouth once daily Biotin 1 mg capsule Discontinued 1 mg PO DAILY July 15, 2021 12:00am July 22, 2023 1:22pm Start: 03-03-2017 End: 09-30-2017 take 1 capsule by mouth once daily Biotin 1 mg capsule Discontinued 1 mg PO daily March 03, 2017 1:00am September 30, 2017 1:56pm supplement Ca-D3-Mag Eh-Jvia-Eza-Dixon-B or (Calcium 600-D3 Plus (Mag-Zinc)) 600 mg calcium- 800 unit-50 mg tablet (4 sources) Start: 02-01-2020 End: 07-15-2021 Ca-D3-Mag Kv-Yzvo-Jfd-Dixon-B or (Calcium 600-D3 Plus (Mag-Zinc)) 600 mg calcium- 800 unit-50 mg tablet Discontinued 1 {tbl} PO DAILY February 01, 2020 1:00am July 15, 2021 3:46pm COVID Start: 02-01-2020 End: 07-15-2021 Ca-D3-Mag Ar-Snrs-Huy-Dixon-B or (Calcium 600-D3 Plus (Mag-Zinc)) 600 mg calcium- 800 unit-50 mg tablet Discontinued 1 {tbl} PO DAILY February 01, 2020 1:00am July 15, 2021 3:46pm Start: 02-01-2020 End: 07-15-2021 take 1 tablet by mouth once daily Ca-D3-Mag Ql-Iakv-Snf-Dixon-Bor (Calcium 600-D3 Plus (Mag-Zinc)) 600 mg calcium- 800 unit-50 mg tablet Discontinued 1 TABLET PO DAILY February 01, 2020 12:00am July 15, 2021 2:46pm Start: 02-01-2020 End: 07-15-2021 take 1 tablet by mouth once daily Ca-D3-Mag Ud-Xzms-Tko-Dixon-Bor (Calcium 600-D3 Plus (Mag-Zinc)) 600 mg calcium- 800 unit-50 mg tablet Discontinued 1 TABLET PO DAILY February 01, 2020 1:00am July 15, 2021 3:46pm doxycycline monohydrate 100 mg oral capsule (4 sources) Tetracycline-class Drug Start: 11-15-2018 End: 08-10-2019 take 1 capsule by mouth twice daily Doxycycline Monohydrate 100 MG capsule Discontinued 100 mg PO TWICE A DAY 6 0 November 15, 2018 12:00am August 10, 2019 11:50am 1 po bid for 3 d fluticasone propionate 0.05 mg/actuat metered dose nasal spray (18 sources) Corticosteroid Start: 02-01-2020 End: 07-15-2021 Fluticasone Propionate 50 mcg/actuation spray,suspension Discontinued 1 NMA INTRANASAL DAILY February 01, 2020 1:00am July 15, 2021 3:47pm allergies administer into each nostril Start: 02-01-2020 End: 07-15-2021 take 1 spray(s) nasal route once daily Fluticasone Propionate Discontinued 1 SPRAY INTRANASAL DAILY February 01, 2020 12:00am July 15, 2021 2:47pm administer into each nostril Start: 08-29-2016 take 2 spray(s) nasa l route once daily fluticasone (FLONASE) 50 mcg/actuation nasal spray Use 2 Sprays in each nostril once daily. 1 Bottle 5 08/29/2016 Active Comment on above: Use 2 Sprays in each nostril once daily. naproxen 250 mg oral tablet (4 sources) Nonsteroidal Anti-inflammatory Drug Start: 0 End: 1 take 250-500 mg by mouth every eight hours as needed for pain Naproxen 250 MG tablet Discontinued 250 - 500 mg PO EVERY 8 HOURS NEEDED as needed for MILD PAIN 30 1 February 27, 2020 1:00am April 08, 2020 12:23pm perflutren lipid microspheres 1.3 mL in NaCl (PF) 0.9% 10 mL injection (DEFINITY) (4 sources) Start: 1 End: 2 perflutren lipid microspheres 1.3 mL in NaCl (PF) 0.9% 10 mL injection (DEFINITY) 125 ml sodium chloride 9 mg/ml prefilled syringe (4 sources) Start: 1 End: 2 sodium chloride 0.9 % (flush) 10 mL (BD POSIFLUSH) Turmeric extract (4 sources) Start: 2 End: 4 Turmeric 400 mg capsule Discontinued mg PO July 15, 2021 12:00am July 22, 2023 1:23pm Start: 07-15-2021 Turmeric Activ e MG PO July 14, 2021 11:00pm Start: 07-15-2021 Turmeric Activ e MG PO July 15, 2021 12:00am Zinc (4 sources) Start: 07-15-2021 End: 07-22-2023 take 1 tablet by mouth once daily Zinc 50 mg tablet Discontinued 50 mg PO DAILY July 15, 2021 12:00am July 22, 2023 1:23pm Start: 07-15-2021 take 50 mg by mouth once daily Zinc Active 50 MG PO DAILY July 14, 2021 11:00pm Start: 07-15-2021 take 50 mg by mouth once daily Zinc Active 50 MG PO DAILY July 15, 2021 12:00am Problems Active Problems Problem Classification Problem Date Documented Date Episodic/Chronic Abdominal hernia (5 sources) Umbilical hernia; Translations: [Umbilical hernia without obstruction or gangrene] 08-10-2019 Episodic Abdominal pain (4 sources) Left lower quadrant pain; Translations: [Left lower quadrant pain] Onset: 06-15-2024 06-15-2024 Episodic Allergic reactions (1 source) Contact dermatitis; Translations: [Unspecified contact dermatitis, unspecified cause] 04-15-2023 Episodic Anxiety disorders (9 sources) Generalized anxiety disorder; Translations: [Generalized anxiety disorder] Onset: 06-15-2024 07-20-2022 Chronic Comment on above: counseling, buspar counseling, buspar, effexor, Cancer of cervix (5 sources) Atypical squamous cells of undetermined significance on cervical Papanicolaou smear; Translations: [Atypical squamous cells of undetermined significance on cytologic smear of cervix (ASC-US)] Onset: 08-31-2024 08-03-2022 Episodic Comment on above: Repeat pap in 3 yrs Disorders of lipid metabolism (15 sources) Dyslipidemia; Translations: [Hyperlipidemia, unspecified] Onset: 12-01-2007 Chronic Disorders of teeth and jaw (18 sources) Temporomandibular joint disorder; Translations: [Unspecified temporomandibular joint disorder, unspecified side] Onset: 12-01-2007 12-01-2007 Episodic Comment on above: X2 E Codes: Fall (3 sources) Fall; Translations: [Unspecified fall, initial encounter] 10-26-2022 Episodic Fracture of lower limb (3 sources) Unspecified fracture of left foot, initial encounter for closed fracture; Translations: [Fracture of left foot] 10-26-2022 Episodic Headache; including migraine (1 source) Headache; Translations: [Headaches] Episodic Immunizations and screening for infectious disease (4 sources) Patient encounter status; Translations: [Encounter for immunization] Episodic Malaise and fatigue (2 sources) Fatigue; Translations: [Other fatigue] Onset: 06-15-2024 06-15-2024 Episodic Mood disorders (2 sources) Major depression single episode, in partial remission; Translations: [Major depressive disorder, single episode, in partial remission] Onset: 06-15-2024 06-15-2024 Chronic Nonspecific chest pain (1 source) Chest pain; Translations: [Chest pain, unspecified] 08-10-2020 Episodic Nutritional deficiencies (4 sources) Cobalamin deficiency; Translations: [Deficiency of other specified B group vitamins] Onset: 06-15-2024 06-15-2024 Episodic Other complications of (4 sources) Multigravida of advanced maternal age; Translations: [Supervision of elderly multigravida, unspecified trimester] 02-28-2020 Episodic Comment on above: genetic counseling p rovided, low risk NIPT. plan 36 week growth scan Other complications of (4 sources) High risk ; Translations: [Supervision of high risk , unspecified, unspecified trimester] 02-28-2020 Episodic Comment on above: PRR STACIE 0 boy PC: Victorino Nunez Ava Spouse: Misha Other connective tissue disease (4 sources) Pain in right arm; Translations: [Pain in right arm] 02-25-2020 Episodic Other endocrine disorders (1 source) Increased human growth hormone level; Translations: [Endocrine disorder, unspecified] Episodic Other infections; including parasitic (1 source) Late effects of other and unspecified infectious and parasitic diseases; 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)] 08-10-2020 Chronic Other nervous system disorders (1 source) Bilateral carpal tunnel syndrome; Translations: [Carpal tunnel syndrome, bilateral upper limbs] Chronic Other nervous system disorders (1 source) Parosmia; Translations: [Parosmia] 08-10-2020 Episodic Other nervous system disorders (1 source) Loss of sense of smell; Translations: [Anosmia] 08-10-2020 Episodic Other nervous system disorders (1 source) Cold extremity; Translations: [Unspecified disturbances of skin sensation] 08-10-2020 Episodic Other non-traumatic joint disorders (1 source) Joint pain; Translations: [Pain in unspecified joint] 08-10-2020 Episodic Other nutritional; endocrine; and metabolic disorders (1 source) Weight increased; Translations: [Abnormal weight gain] 06-15-2024 Episodic Other nutritional; endocrine; and metabolic disorders (1 source) Abnormal weight gain; Translations: [Weight gain] Onset: 06-15-2024 Episodic Other and delivery including normal (4 sources) ; Translations: [Encounter for supervision of normal , unspecified, unspecified trimester] 02-28-2020 Episodic Comment on above: genetic- low risk, c arrier and NTD screening declined. nl anatomy scan Other screening for suspected conditions (not mental disorders or infectious disease) (1 source) Encounter for screening mammogram for malignant neoplasm of breast; Translations: [Encounter for screening mammogram for malignant neoplasm of breast] Onset: 08-31-2024 Episodic Other upper respiratory disease (1 source) Change in voice; Translations: [Unspecified voice and resonance disorder] 08-10-2020 Episodic Residual codes; unclassified (4 sources) Gestation period, 34 weeks; Translations: [34 weeks gestation of ] 02-28-2020 Episodic Comment on above: electronic covid laura t ordered 01/17/2020sc (scheduled for 02/21/2020 at 1630) Residual codes; unclassified (4 sources) Edema; Translations: [Edema, unspecified] 02-25-2020 Episodic Residual codes; unclassified (4 sources) History of colonoscopy; Translations: [Other specified postprocedural states] 08-10-2019 Episodic Superficial injury; contusion (3 sources) Contusion of right foot; Translations: [Contusion of right foot, initial encounter] 10-26-2022 Episodic Viral infection (4 sources) COVID-19; Translations: [Severe acute respiratory syndrome coronavirus 2 (SARS-CoV-2) detected] 02-28-2020 Episodic Comment on above: ASA and US growth- 1 2/3 47% Past or Other Problems Problem Classification Problem Date Documented Da te Episodic/Chronic Other skin disorders (14 sources) Alopecia; Translations: [Nonscarring hair loss, unspecified] Onset: 12-01-2007 12-01-2007 Episodic Residual codes; unclassified (14 sources) Family history of polyp of colon; Translations: [Family history of colonic polyps] Onset: 09-13-2015 09-13-2015 Episodic Unclassified (1 source) Patient encounter status 07-04-2024 Results Test Name Value Interpretation Reference Range Facility Paper Pattern Folder Office Visit Reporton 08-31-2024 Paper Pattern Folder Office Visit Report [facility] [address] [place] [address], [address] [place] [address] OFFICE VISIT Date of Service: 08/31/24 MR#: [id number] Acct: [id number] Name: DOV BLACKMON Rep #: [id number] : 1980 Provider: Dr. 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 Is patient in pain?: No Allergies Penicillins Allergy (Intermediate, Verified 08/31/24 13:29) Rash Medications ???Medication ???Instructions ???Recorded ???Confirmed ???Type lactobacillus combination no.8 3 1 cap PO QDAY supplement 03/03/17 08/31/24 History billion cell capsule (Adult Probiotic) loratadine 10 mg tablet (Claritin) 10 mg PO QDAY PRN allergy sympto ms 03/03/17 08/31/24 History prenat.vits,annel,min-ir on-folic 1 tab PO QDAY SUPPLEMENT 03/03/17 08/31/24 History ( Vitamin tablet) cholecalciferol (vitamin D3) 50 50 mcg PO DAILY 07/15/21 08/31/24 History mcg (2,000 unit) capsule omega-3 fatty acids 1,000 mg 1,000 mg PO DAILY 07/15/21 5 History capsule buspirone 7.5 mg tablet 7.5 mg PO TID #90 TABLETS 08/31/24 08/31/24 Rx venlafaxine 75 mg capsule,extended 75 mg PO DAILY #30 caps 08/31/24 08/31/24 Rx release 24 hr (Effexor XR) Is last menstrual period known: Yes Last Menstrual Period: 08/10/24 Post menopausal: No Patient : No : No [facility] Medical History (Updated 08/31/24 @ 13:[address] Farideh Christian MD) Blighted ovum ( 10/2018) Umbilical hernia Surgical History H/O dilation and curettage ( 10/2018) S/P colonoscopy S/P wisdom tooth extraction Family History Mother Arthritis Hypertension Heart disease Sister Asthma Father , Lung cancer Lung cancer Social History adopted: No household members: family housing: house number of children: 4 current occupational status: unemployed pets and animals: Yes sexually active: Yes Smoking Status: Never smoker second hand exposure: No alcohol intake: never substance use type: does not use caffeine: No what type of physical activity do you participate in: none frequency: does not exercise seatbelt use: always do you feel safe at home: Yes additional social history: Spouse: Misha Muñiz care products History 5 Elective abortions Hx Para 4 Spontaneous abortions 1 Hx # Term Pregnancies 4 Ectopic pregnancies Hx # Pregnancies Multiple births # of living children 4 Past Pregnancies Del. Date Name GA/Weeks Outcome Route Bth Weight Gen Labor Lgth Anesthesia Del Locatn Provider FOB Unknown 11/13/2009 Adalyn 39 live - full term 6lbs 10oz Female less than 24 hours epidural [facility] Unknown 11/01/2012 Alliance 39 live - full term 8lbs 6oz Male less t truong 24 hours epidural [facility] Unknown 08/30/2017 Deyanira 37 live - full term 7 lbs Female [address] [facility] Dedrickalexander Misha 02/27/20 Dileep 40 live - full term Male [facility] Proko p Delivery Date: 02/27/20 Last Updated by: [facility] Encounter for routine gynecological examination Details: DOV BLACKMON is a 44 year old who presents for annual exam. Last PAP: 07/20/22 History of abnormal PAP: 07/20/22 - ASCUS / HPV neg Last mammogram: done today History of abnormal mammogram: Colon cancer screening: colonoscopy 2020 Other preventative health care screenings: PCP [facility] Reproductive History Last Menstrual Period: 08/10/24 ROS ROS Narrative The patient is a 44-year-old female presenting for a routine wellness visit and management of anxiety. She reports ongoing management of anxiety with Buspar, taken twice daily, which she finds effective in maintaining her mental health stability. She is also undergoing formal therapy and finds it beneficial. The patient describes a recent episode of sharp abdominal pain, which occurred during menstruation, leading to an ultrasound that showed no abnormalities. Her menstrual cycles are regular, occurring every 28 to 30 days, lasting up to seven days, with occasional heavy flow. She has a history of a hernia, which was evaluated a few months ago, and no significant changes were noted. The patient reports experiencing sunburn due to lack of sunscreen use during outdoor activities. She is currently in the process of a divorce, which has (more content not included)... Normal [facility] SCRN MAMM (CAD)W/LINDEN BILATo n 08-31-2024 SCRN MAMM (CAD)W/LINDEN BILAT [facility] Imaging Services [address] [place] [address] [id number] SCRN MAMM (CAD)W/LINDEN BILAT MR#: [id number] Acct: [id number] Name: DOV BLACKMON Rep #: [id number] : 1980 F 44 From: Rosa Coello MD PCP: Dr. Joleen Riec MD Status: [facility] Study: SCRN MAMM (CAD)W/LINDEN BILAT Date of Exam: 05/23 Exam# [id number] Ordering Dr: Farideh Christian EXAM: SCRN MAMM (CAD)W/LINDEN BILAT DATE: 08/31/2024 CLINICAL HISTORY: F, Age 44 y/o , SCREENING FOR BREAST CANCER TECHNIQUE: SCRN MAMM (CAD)W/LINDEN BILAT COMPARISON: Prior exam(s) dated 07/19/2023, 07/20/2022. FINDINGS: TISSUE DENSITY: The breasts are heterogeneously dense, which may obscure small masses. The mammogram demonstrates that the patient has dense breasts. Supplemental screening with whole breast ultrasound or MRI may be considered for further evaluation. Bilateral Breast Mammographic Findings: No significant masses, calcifications or other abnormalities are identified. BI/SCRN MAMM (CAD)W/LINDEN BILAT IMPRESSION: There is no mammographic evidence of malignancy. OVERALL FINAL ASSESSMENT BI-RADS 1: NEGATIVE. RECOMMEND ANNUAL MAMMOGRAPHIC SCREENING. RECOMMENDATION: Routine annual follow-up in 1 Year A letter with findings and recommendations will be mailed to the patient. Reading Location: [id number] CC: Dr. Joleen Rice MD; Dr. Farideh Christian MD Forensic Structural Engineer: Signed Normal [facility] Surgery Visit Reporton 07-14 Surgery Visit Report [facility] [place] [address] OFFICE VISIT Date of Service: 07/14/24 MR#: [id number] Acct: [id number] Name: DOV BLACKMON Rep #: [id number] : 1980 Provider: Dr. Chris gonzalez MD Age/Sex: 43/F Location: [facility] Status: Signed Intake Vital Signs 07/22/23 13:26 07/14/24 10:08 Height 5 ft 7 in 5 ft 7 in Weight: 172 lb BMI 26.9 BP 124/72 H Blood Pressure Location Rt brachial Position Sitting Respiration 17 Pulse 82 Pulse Source Monitor Temp 97.6 F L Temp Source Temporal Pulse Oximetry (%) 99 Oxygen Delivery Method room air Intake Visit Reasons: SELF REFERRED LUMP UNDER BELLY BUTTON Chief Complaint: self referred lump under belly button Accompanied by: Son Is patient in pain?: No Allergies Penicillins Allergy (Intermediate, Verified 07/14/24 10:08) Rash Medications ???Medication ???Instructions ???Recorded ???Confirmed ???Type lactobacillus combination no.8 3 1 cap PO QDAY supplement 03/03/17 07/14/24 History billion cell capsule (Adult Probiotic) loratadine 10 mg tablet (Claritin) 10 mg PO QDAY PRN allergy sympto ms 03/03/17 07/14/24 History prenat.vits,annel,min-ir on-folic 1 tab PO QDAY SUPPLEMENT 03/03/17 07/14/24 History ( Vitamin tablet) cholecalciferol (vitamin D3) 50 50 mcg PO DAILY 07/15/21 07/14/24 History mcg (2,000 unit) capsule omega-3 fatty acids 1,000 mg 1,000 mg PO DAILY 07/15/21 5 History capsule venlafaxine 37.5 mg 37.5 mg PO DAILY #7 caps 07/22/23 07/14/24 Rx capsule,extended release 24 hr (Effexor XR) venlafaxine 75 mg capsule,extended 75 mg PO DAILY #30 caps 07/22/23 07/14/24 Rx release 24 hr (Effexor XR) buspirone 7.5 mg tablet 7.5 mg PO TID #90 TABLETS 02/22/24 07/14/24 Rx PFSH Medical History Blighted ovum ( 10/2018) Umbilical hernia Surgical History H/O dilation and curettage ( 10/2018) S/P colonoscopy S/P wisdom tooth extraction Family History Mother Arthritis Hypertension Heart disease Sister Asthma Father , Lung cancer Lung cancer Social History adopted: No household members: family housing: house number of children: 4 current occupational status: unemployed pets and animals: Yes sexually active: Yes Smoking Status: Never smoker second hand exposure: No alcohol intake: never substance use type: does not use caffeine: No what type of physical activity do you participate in: none frequency: does not exercise seatbelt use: always do you feel safe at home: Yes additional social history: Spouse: Misha Muñ[employer] Female Reproductive History Menstrual Ab spontaneous: 1 HPI HPI HPI: Patient is a 43-year-old female here to discuss her umbilical hernia repair. She had her umbilical hernia repaired several years ago by Dr. Rosas and she has had a child since then. She does not have any bulging but she does feel the mesh and she would like it checked out. ROS General General: No weight change, appetite, fatigue, colon cancer, breast cancer or weakness HEENT HEENT: No difficulty swallowing, eye injury, eye surgery, swollen glands or hoarseness Endo Endocrine: No thyroid disease, diabetes mellitus, thyroid cancer, Hair loss, heat intolerance or cold intolerance Skin Skin: No rash or changing moles Musc Musculoskeletal: Yes back problems; No arthritis, rheumatoid arthritis, gout or joint pain Cardio Cardiovascular: No murmur, pacemaker, heart disease, atrial fibrillation, high blood pressure, heart attack, heart stent, palpitations, shortness of breath with exertion or chest pain Psych Psychiatric: Yes depression and anxiety; No hearing voices Resp Respiratory: No shortness of breath, No sleep apnea, No cough, No COPD, No asthma, No emphysema and No wheezing Gastro Gastrointestinal: No abdominal pain, No nausea or vomiting, No diarrhea, No constipation, No blood in stool, No acid reflux, No hemorrhoids, No ulcers, No gallbladder problem and No black,tarry stools Garth Hematologic: No blood thinners, No blood disorders, No bleeding, No anemia and No blood clots Neuro Neurologic: No numbness, No tingling and No weakness Exam Const General: cooperative Orientation: alert and oriented x3 HENMT Head: normal to inspection Neck Neck: normal visual inspection and full ROM Chest Chest palpation inspection: normal inspection of the chest Resp Effort Inspection: normal respiratory effort Auscultation: clear to ausc (more content not included)... Normal [facility] CBC W Auto Differential pane l (Bld)on 06-22-2024 Basophils (Bld) [#/Vol] 10*3/uL Normal <0.11 [facility] Comment on above: Order Comment: Speci men Type: BLOOD SPECIMENOrdering Facility: [facility] Address: [address] [place] [address] Performed By: #### 5 7021-8 ####[facility] [id number] [place] [id number] [place] Basophils/100 WBC (Bld) 0.4 % Normal [facility] Comment on above: Order Comment: Speci men Type: BLOOD SPECIMENOrdering Facility: [facility] Address: [address] [place] [address] Performed By: #### 5 7021-8 ####[facility] THELMAWYILIA [id number] [place] [address] [place] Differential cell count method Nom (Bld) Auto Normal [facility] Comment on above: Order Comment: Speci men Type: BLOOD SPECIMENOrdering Facility: [facility] Address: [address] [place] [address] Performed By: #### 5 7021-8 ####[facility]ERNCLIA [id number] [place] [address] [place] Eosinophils (Bld) [#/Vol] 0.20 10*3/uL Normal <0.46 [facility] Comment on above: Order Comment: Speci men Type: BLOOD SPECIMENOrdering Facility: [facility] Address: [address] [place] [address] Performed By: #### 5 7021-8 ####[facility]ERNCLIA [id number] [place] [address] [place] Eosinophils/100 WBC (Bld) 3.7 % Normal [facility] Comment on above: Order Comment: Speci men Type: BLOOD SPECIMENOrdering Facility: [facility] Address: [address] [place] [address] Performed By: #### 5 7021-8 ####[facility]ENTERNCLIA [id number] [place] [address] [place] Erythrocyte distribution width (RBC) [Ratio] 12.2 % Normal 11.5-15.0 [facility] Comment on above: Order Comment: Speci men Type: BLOOD SPECIMENOrdering Facility: [facility] Address: [address] [place] [address] Performed By: #### 5 7021-8 ####[facility]ERNCLIA [id number] [place] [address] [place] Hematocrit (Bld) [Volume fraction] 39.6 % Normal 36.0-46.0 [facility] Comment on above: Order Comment: Speci men Type: BLOOD SPECIMENOrdering Facility: [facility] Address: [address] [place] [address] Performed By: #### 5 7021-8 ####[facility] [id number] [place] [address] [place] Hemoglobin (Bld) [Mass/Vol] 13.3 g/dL Normal 11.5-15.5 [facility] Comment on above: Order Comment: Speci men Type: BLOOD SPECIMENOrdering Facility: [facility] Address: [address] [place] [address] Performed By: #### 5 7021-8 ####[facility] [id number] [place] [address] [place] Immature granulocytes (Bld) [#/Vol] 10*3/uL Normal <0.10 [facility] Comment on above: Order Comment: Speci men Type: BLOOD SPECIMENOrdering Facility: [facility] Address: [address] [place] [address] Performed By: #### 5 7021-8 ####[facility] CAMPUSKEIRAA [id number] [place] [address] [place] Immature granulocytes/100 WBC (Bld) 0.2 % Normal [facility] Comment on above: Order Comment: Speci men Type: BLOOD SPECIMENOrdering Facility: [facility] Address: [address] [place] [address] Performed By: #### 5 7021-8 ####[facility]ERNCLIA [id number] [place] [address] [place] Lymphocytes (Bld) [#/Vol] 1.61 10*3/uL Normal 1.00-4.00 [facility] Comment on above: Order Comment: Speci men Type: BLOOD SPECIMENOrdering Facility: [facility] Address: [address] [place] [address] Performed By: #### 5 7021-8 ####[facility] [id number] [place] [address] [place] Lymphocytes/100 WBC (Bld) 30.0 % Normal [facility] Comment on above: Order Comment: Speci men Type: BLOOD SPECIMENOrdering Facility: [facility] Address: [address] [place] [address] Performed By: #### 5 7021-8 ####[facility] [id number] [place] [address] [place] MCH (RBC) [Entitic mass] 29.2 pg Normal 26.0-34.0 [facility] Comment on above: Order Comment: Speci men Type: BLOOD SPECIMENOrdering Facility: [facility] Address: [address] [place] [address] Performed By: #### 5 7021-8 ####[facility] [id number] [place] [address] [place] MCHC (RBC) [Mass/Vol] 33.6 g/dL Normal 30.5-36.0 [facility] Comment on above: Order Comment: Speci men Type: BLOOD SPECIMENOrdering Facility: [facility] Address: [address] [place] [address] Performed By: #### 5 7021-8 ####[facility] [id number] [place] [address] [place] MCV (RBC) [Entitic vol] 86.8 fL Normal 80.0-100.0 [facility] Comment on above: Order Comment: Speci men Type: BLOOD SPECIMENOrdering Facility: [facility] Address: [address] [place] [address] Performed By: #### 5 7021-8 ####[facility] MILLTOWNCLIA [id number] [place] [address] [place] Monocytes (Bld) [#/Vol] 0.47 10*3/uL Normal <0.87 [facility] Comment on above: Order Comment: Speci men Type: BLOOD SPECIMENOrdering Facility: [facility] Address: [address] [place] [address] Performed By: #### 5 7021-8 ####[facility] MILLTOWNCLIA [id number] [place] [address] [place] Monocytes/100 WBC (Bld) 8.8 % Normal [facility] Comment on above: Order Comment: Speci men Type: BLOOD SPECIMENOrdering Facility: [facility] Address: [address] [place] [address] Performed By: #### 5 7021-8 ####[facility]ITALWNCLIA [id number] [place] [address] [place] Neutrophils (Bld) [#/Vol] 3.06 10*3/uL Normal 1.45-7.50 [facility] Comment on above: Order Comment: Speci men Type: BLOOD SPECIMENOrdering Facility: [facility] Address: [address] [place] [address] Performed By: #### 5 7021-8 ####[facility] MILLTOWNCLIA [id number] [place] [address] [place] Neutrophils/100 WBC (Bld) 56.9 % Normal [facility] Comment on above: Order Comment: Speci men Type: BLOOD SPECIMENOrdering Facility: [facility] Address: [address] [place] [address] Performed By: #### 5 7021-8 ####[facility] MILLTOWNCLIA [id number] [place] [address] [place] Nucleated RBC (Bld) [#/Vol] 10*3/uL Normal <0.01 [facility] Comment on above: Order Comment: Speci men Type: BLOOD SPECIMENOrdering Facility: [facility] Address: [address] [place] [address] Performed By: #### 5 7021-8 ####[facility]ENTERYIKEIRA [id number] [place] [address] [place] Nucleated RBC/100 WBC (Bld) [Ratio] 0.0 /100 WBC Normal [facility] Comment on above: Order Comment: Speci men Type: BLOOD SPECIMENOrdering Facility: [facility] Address: [address] [place] [address] Performed By: #### 5 7021-8 ####[facility] CENTERNCMary [id number] [place] [address] [place] Platelet mean volume (Bld) [Entitic vol] 8.9 fL Low 9.0-12.7 [facility] Comment on above: Order Comment: Speci men Type: BLOOD SPECIMENOrdering Facility: [facility] Address: [address] [place] [address] Performed By: #### 5 7021-8 ####[facility] CENTERQAMARMary [id number] [place] [address] [place] Platelets (Bld) [#/Vol] 194 10*3/uL Normal 150-400 [facility] Comment on above: Order Comment: Speci men Type: BLOOD SPECIMENOrdering Facility: [facility] Address: [address] [place] [address] Performed By: #### 5 7021-8 ####[facility]ENTERNCLIA [id number] [place] [address] [place] RBC (Bld) [#/Vol] 4.56 10*6/uL Normal 3.90-5.20 [facility] Comment on above: Order Comment: Speci men Type: BLOOD SPECIMENOrdering Facility: [facility] Address: [address] [place] [address] Performed By: #### 5 7021-8 ####[facility]ENTERNCLAKEVIEW [facility] [id number] [place] [address] [place] WBC (Bld) [#/Vol] 5.37 10*3/uL Normal 3.70-11.00 [facility] Comment on above: Order Comment: Speci men Type: BLOOD SPECIMENOrdering Facility: [facility] Address: [address] [place] [address] Performed By: #### 5 7021-8 ####[facility] [id number] [place] [address] [place] Comprehensive metabolic 2000 panelon 06-22-2024 Albumin [Mass/Vol] 4.5 g/dL Normal 3.9-4.9 [facility] Comment on above: Order Comment: Speci men Type: BLOOD SPECIMEN Ordering Facility: [facility] Address: [address] [place] [address] Performed By: #### 2 4323-8 #### [facility] CLIA [id number] [address] [place] [address] [place] ALP [Catalytic activity/Vol] 48 U/L Normal 34-123 [facility] Comment on above: Order Comment: Speci men Type: BLOOD SPECIMEN Ordering Facility: [facility] Address: [address] [place] [address] Performed By: #### 2 4323-8 #### [facility] CLIA [id number] [address] [place] [address] [place] ALT [Catalytic activity/Vol] 15 U/L Normal 7-38 [facility] Comment on above: Order Comment: Speci men Type: BLOOD SPECIMEN Ordering Facility: [facility] Address: [address] [place] [address] Performed By: #### 2 4323-8 #### [facility] CLIA [id number] [address] [place] [address] [place] Anion gap [Moles/Vol] 9 mmol/L Normal 8-15 [facility] Comment on above: Order Comment: Speci men Type: BLOOD SPECIMEN Ordering Facility: [facility] Address: [address] [place] [address] Performed By: #### 2 4323-8 #### [facility] CLIA [id number] [address] [place] [address] [place] AST [Catalytic activity/Vol] 15 U/L Normal 13-35 [facility] Comment on above: Order Comment: Speci men Type: BLOOD SPECIMEN Ordering Facility: [facility] Address: [address] [place] [address] Performed By: #### 2 4323-8 #### [facility] CLIA [id number] [address] [place] [address] [place] Bilirubin [Mass/Vol] 0.5 mg/dL Normal 0.2-1.3 [facility] Comment on above: Order Comment: Speci men Type: BLOOD SPECIMEN Ordering Facility: [facility] Address: [address] [place] [address] Performed By: #### 2 4323-8 #### [facility] CLIA [id number] [address] [place] [address] [place] Calcium [Mass/Vol] 9.7 mg/dL Normal 8.5-10.2 [facility] Comment on above: Order Comment: Speci men Type: BLOOD SPECIMEN Ordering Facility: [facility] Address: [address] [place] [address] Performed By: #### 2 4323-8 #### [facility] CLIA [id number] [address] [place] [address] [place] Chloride [Moles/Vol] 101 mmol/L Normal 98-107 [facility] Comment on above: Order Comment: Speci men Type: BLOOD SPECIMEN Ordering Facility: [facility] Address: [address] [place] [address] Performed By: #### 2 4323-8 #### [facility] CLIA [id number] [address] [place] [address] [place] CO2 [Moles/Vol] 27 mmol/L Normal 22-30 [facility] Comment on above: Order Comment: Speci men Type: BLOOD SPECIMEN Ordering Facility: [facility] Address: [address] [place] [address] Performed By: #### 2 4323-8 #### [facility] CLIA [id number] [address] [place] [address] [place] Creatinine [Mass/Vol] 0.85 mg/dL Normal 0.58-0.96 [facility] Comment on above: Order Comment: Speci men Type: BLOOD SPECIMEN Ordering Facility: [facility] Address: [address] [place] [address] Performed By: #### 2 4323-8 #### [facility] CLIA [id number] [address] [place] [address] [facility] [place] Creatinine and Glomerular filtration rate.predicted panel (S/P/Bld) 88 mL/min/1.73m??? Normal >=60 [facility] Comment on above: Order Comment: Speci men Type: BLOOD SPECIMEN Ordering Facility: [facility] Address: [address] [place] [address] Result Comment: Dianelys mated Glomerular Filtration Rate (eGFR) is calculated using the 2020 CKD-EPI creatinine equation. This equation utilizes serum creatinine, sex, and age as parameters. The creatinine assay has traceable calibration to isotope dilution-mass spectrometry. Refer to KDIGO guidelines for clinical interpretation. In patients with unstable renal function, e.g. those with acute kidney injury, the eGFR may not accurately reflect actual GFR. Performed By: #### 2 4323-8 #### [facility] [id number] [address] [place] [address] [place] Glucose [Mass/Vol] 97 mg/dL Normal 74-99 [facility] Comment on above: Order Comment: Adele daniel Type: BLOOD SPECIMEN Ordering Facility: [facility] Address: [address] [place] [address] Result Comment: The [place] Diabetes Association (ADA) provides guidance for cutoff values for fasting glucose and random glucose. The ADA defines fasting as no caloric intake for at least 8 hours. Fasting plasma glucose results between 100 to 125 mg/dL indicate increased risk for diabetes (prediabetes). Fasting plasma glucose results greater than or equal to 126 mg/dL meet the criteria for diagnosis of diabetes. In the absence of unequivocal hyperglycemia, results should be confirmed by repeat testing. In a patient with classic symptoms of hyperglycemia or hyperglycemic crisis, random plasma glucose results greater than or equal to 200 mg/dL meet the criteria for diagnosis of diabetes. Reference: Standards of Medical Care in Diabetes 2016, [place] [employer] Association. Diabetes Care. 2016.39(Suppl 1). Performed By: #### 2 4323-8 #### [facility]ENTERIA [id number] [address] [place] [address] [place] Potassium [Moles/Vol] 3.8 mmol/L Normal 3.7-5.1 [facility] Comment on above: Order Comment: Adele daniel Type: BLOOD SPECIMEN Ordering Facility: [facility] Address: [address] [place] [address] Performed By: #### 2 4323-8 #### [facility]ENTERIA [id number] [address] [place] [address] [place] Protein [Mass/Vol] 7.6 g/dL Normal 6.3-8.0 [facility] Comment on above: Order Comment: Adele daniel Type: BLOOD SPECIMEN Ordering Facility: [facility] Address: [address] [place] [address] Performed By: #### 2 4323-8 #### [facility] CLIA [id number] [address] [place] [address] [place] Sodium [Moles/Vol] 137 mmol/L Normal 136-144 [facility] Comment on above: Order Comment: Speci men Type: BLOOD SPECIMEN Ordering Facility: [facility] Address: [address] [place] [address] Performed By: #### 2 4323-8 #### [facility] CLIA [id number] [address] [place] [address] [place] Urea nitrogen [Mass/Vol] 14 mg/dL Normal 7-21 [facility] Comment on above: Order Comment: Speci men Type: BLOOD SPECIMEN Ordering Facility: [facility] Address: [address] [place] [address] Performed By: #### 2 4323-8 #### [facility] [id number] [address] [place] [address] [place] Ferritin SerPl-ncon 2024 Ferritin [Mass/Vol] 46.0 ng/mL Normal 14.7-205.1 [facility] Comment on above: Order Comment: Speci men Type: BLOOD SPECIMEN Ordering Facility: [facility] Address: [address] [place] [address] Performed By: #### 3 016-3, 49033-6, 2276-4 #### [facility] CLIA [id number] [address] [place] [address] [place] #### 12129-3 #### [facility] CLIA [id number] [address] [place] [address] [place] [facility] CLIA [id number] [address] [place] [address] [place] Iron and Iron binding capaci ty panelon 06-22-2024 Iron [Mass/Vol] 107 ug/dL Normal 41-186 [facility] Comment on above: Order Comment: Speci men Type: BLOOD SPECIMEN Ordering Facility: [facility] Address: [address] [place] [address] Performed By: #### 3 016-3, 61503-7, 2275-05 #### [facility] CLIA [id number] [address] [place] [address] [place] #### 13223-1 #### [facility] CLIA [id number] [address] [place] [address] [place] [facility] [id number] [place] [address] [place] Iron binding capacity [Mass/Vol] 323 ug/dL Normal 232-386 [facility] Comment on above: Order Comment: Speci men Type: BLOOD SPECIMEN Ordering Facility: [facility] Address: [address] [place] [address] Performed By: #### 3 016-3, 87029-6, 2275-05 #### [facility] CLIA [id number] [address] [place] [address] [place] #### 81937-2 #### [facility] CLIA [id number] [address] [place] [address] [place] [facility] CLIA [id number] [address] [place] [address] [place] Iron/TIBC [Molar ratio] 33.1 % Normal 15.0-57.0 [facility] Comment on above: Order Comment: Speci men Type: BLOOD SPECIMEN Ordering Facility: [facility] Address: [address] [place] [address] Performed By: #### 3 016-3, 24430-6, 2275-05 #### [facility] CLIA [id number] [address] [place] [address] [place] #### 64773-3 #### [facility] CLIA [id number] [address] [place] [address] [place] [facility] CLIA [id number] [address] [place] [address] [place] Lipid 1996 panelon 5 Cholesterol [Mass/Vol] 265 mg/dL High <200 [facility] Comment on above: Order Comment: Speci men Type: BLOOD SPECIMEN Ordering Facility: [facility] Address: [address] [place] [address] Result Comment: <200 mg/dL, Desirable 200-239 mg/dL, Borderline high >239 mg/dL, High Performed By: #### 3 016-3, 60008-6, 2275-05 #### [facility] CLIA [id number] [address] [place] [address] [place] #### 57970-5 #### [facility] CLIA [id number] [address] [place] [address] [place] [facility] CLIA [id number] [address] [place] [address] [place] Cholesterol in HDL [Mass/Vol] 72 mg/dL Normal >39 [facility] Comment on above: Order Comment: Speci men Type: BLOOD SPECIMEN Ordering Facility: [facility] Address: [address] [place] [address] Result Comment: 40-5 9 mg/dL, Acceptable >59 mg/dL, High: Negative risk factor for coronary heart disease <40 mg/dL, Low: Positive risk factor for coronary heart disease Performed By: #### 3 016-3, 05367-0, 2275-05 #### [facility] CLIA [id number] [address] [place] [address] [place] #### 00112-4 #### [facility] CLIA [id number] [address] [place], [place] [address]IA [id number] [address] [place] [address] Cholesterol in LDL [Mass/Vol] 176 mg/dL High <100 [facility] Comment on above: Order Comment: Speci men Type: BLOOD SPECIMEN Ordering Facility: [facility] Address: [address] [place] [address] Result Comment: <100 mg/dL, Optimal 100-129 mg/dL, Near optimal/above optimal 130-159 mg/dL, Borderline high 160-189 mg/dL, High >189 mg/dL, Very high Secondary prevention optimal LDL Cholesterol levels are recommended to be <70 mg/dL LDL cholesterol is calculated using the Barber-NIH equation. Performed By: #### 3 016-3, 32661-0, 2275-4 #### [facility] CLIA [id number] [address] [place] [address] #### 34795-8 #### [facility] CLIA [id number] [address] [place] [address] [place] [id number] [address] [place] [address] Cholesterol in LDL/Cholesterol in HDL [Mass ratio] 2.44 {ratio} Normal <2.54 [facility] Comment on above: Order Comment: Speci men Type: BLOOD SPECIMEN Ordering Facility: [facility] Address: [address] [place] [address] Result Comment: Refe chrissie: 1. National Cholesterol Education Program ATP III Guideline At-A-Glance Quick Desk Reference: National Heart, Lung, and Blood [place]. National Institutes of Health. 2001: NIH Publication No. 01-3305. 2. An International Atherosclerosis Society position paper: global recommendations for the management of dyslipidemia: executive summary, Atherosclerosis. 2014: 232(2):410-413. Performed By: #### 3 016-3, 33775-5, 2275-05 #### [facility] CLIA [id number] [address] [place] [address] [place] #### 21371-1 #### [facility] CLIA [id number] [address] [place] [id number] [place] [facility] CLIA [id number] [address] [place] [address] [place] Cholesterol in VLDL [Mass/Vol] 19 mg/dL Normal <30 [facility] Comment on above: Order Comment: Speci men Type: BLOOD SPECIMEN Ordering Facility: [facility] Address: [address] [place] [address] Performed By: #### 3 016-3, 92008-9, 2275-05 #### [facility] CLIA [id number] [address] [place] [address] [place] #### 89548-5 #### [facility] CLIA [id number] [address] [place] [address] [place] [id number] [place] [address] [place] Cholesterol non HDL [Mass/Vol] 193 mg/dL High <130 [facility] Comment on above: Order Comment: Speci men Type: BLOOD SPECIMEN Ordering Facility: [facility] Address: [address] [place] [address] Result Comment: <130 mg/dL, Optimal 130-159 mg/dL, Near optimal/above optimal 160-189 mg/dL, Borderline high 190-219 mg/dL, High >219 mg/dL, Very high Secondary prevention optimal non HDL Cholesterol levels are recommended to be <100 mg/dL Performed By: #### 3 016-3, 75184-1, 2275-05 #### [facility] CLIA [id number] [address] [place] [address] [place] #### 09861-7 #### [facility] CLIA [id number] [facility] [place] [id number] [place] [facility] CLIA [id number] [address] [place] [address] [place] Cholesterol.total/Ch olesterol in HDL [Mass ratio] 3.68 {ratio} Normal <5.10 [facility] Comment on above: Order Comment: Speci men Type: BLOOD SPECIMEN Ordering Facility: [facility] Address: [address] [place], [place] [address] Performed By: #### 3 016-3, 94979-3, 2275-05 #### [facility] CLIA [id number] [address] [place] [address] [place] #### 72074-8 #### [facility] CLIA [id number] [address] [place] [address] [place] [facility] CLIA [id number] [address] [place] [address] [place] FASTING TIME 12 hrs Normal [facility] Comment on above: Order Comment: Speci men Type: BLOOD SPECIMEN Ordering Facility: [facility] Address: [address] [place], [place] [address] Performed By: #### 3 016-3, 25812-0, 2275-05 #### [facility] CLIA [id number] [address] [place], [place] [address] [place] #### 85160-9 #### [facility] CLIA [id number] [address] [place], [place] [address] [place] [facility] CLIA [id number] [address] [place] [address] [place] Triglyceride [Mass/Vol] 98 mg/dL Normal <150 [facility] Comment on above: Order Comment: Speci men Type: BLOOD SPECIMEN Ordering Facility: [facility] Address: [address] [place] [address] Result Comment: <150 mg/dL, Normal 150-199 mg/dL, Borderline high 200-499 mg/dL, High >499 mg/dL, Very high Performed By: #### 3 016-3, 65593-5, 2275-05 #### [facility] CLIA [id number] [address] [place] [address] #### 37879-1 #### [facility] CLIA [id number] [address] [place] [address] [place] [facility] CLIA [id number] [address] [place] [address] [place] TSH SerPl-aCncon 06-22-2024 TSH Qn 1.870 m[IU]/L Normal 0.270-4.200 [facility] Comment on above: Order Comment: Adele daniel Type: BLOOD SPECIMEN Ordering Facility: [facility] Address: [address] [place] [address] Result Comment: If t he patient is , TSH reference range varies by gestational period: First Trimester (weeks 9-12): 0.180-2.990 mIU/L Second Trimester: 0.110-3.980 mIU/L Third Trimester: 0.480-4.710 mIU/L Cl Wall et al. A Practical Approach for the Verifications and Determination of Site- and Trimester-Specific Reference Intervals for Thyroid Function tests in . Thyroid, 2019:29:3:412-420. Domenico E, et al. 2017 Guidelines of the [place] Thyroid Association for the Diagnosis and Management of Thyroid Disease during and the . Thyroid, 2017:27:3:315-389. Performed By: #### 3 016-3, 45783-7, 2275-05 #### [facility] CLIA [id number] [address] [place] [address] [place] #### 48920-0 #### [facility] CLIA [id number] [address] [place] [facility] CLIA [id number] [address] [place] [id number] [place] [address] STATES OF [facility] FEMALE PELVIS TRANSABD LT Don 06-22-2024 FEMALE PELVIS TRANSABD LTD * * *Final Report* * * DATE OF EXAM: Jun 22 2024 9:45AM WRU [id number] - US FEMALE PELVIS TRANSABD LTD / PROCEDURE REASON: LLQ pain * * * * Physician Interpretation * * * * EXAMINATION: TRANSVAGINAL AND LIMITED TRANSABDOMINAL FEMALE PELVIC ULTRASOUND CLINICAL HISTORY: LLQ pain x1 week; LMP is reported as 06/12/2024 TECHNIQUE: Sonography of the pelvis was performed by transvaginal and transabdominal (limited) techniques. Images were obtained and stored in a permanent archive. MQ: _2021 COMPARISON: None RESULT: Uterus: Prominent left myometrial vessels. -Size: 9.7 x 5.2 x 6.7 cm -Orientation: Anteverted -Endometrial echo complex: Evaluation of the endometrium was adequate. No endometrial abnormality. The endometrial echo complex measured 1.1 cm. -Cervix: Unremarkable. -Adenomyosis assessment: There are no sonographic findings of adenomyosis. -Fibroids: There are no fibroids. Right Ovary: 3.3 x 2.6 x 2.8 cm - Normal sonographic appearance with physiologic follicles. Doppler imaging showed normal arterial and venous flow throughout the ovary. Left Ovary: 3.3 x 3 x 2.7 cm - Normal sonographic appearance with physiologic follicles including a 2.1 cm dominant follicle. Doppler imaging showed normal arterial and venous flow throughout the ovary. Free Fluid: No abnormal free fluid is present. IMPRESSION: Normal sonographic appearance of the female pelvis. Specifically, no torsion. Forensic Structural Engineer: PSCB Transcribe Date/Time: Jun 24 2024 1:47P Dictated by : DANNIELLE PETERSON MD This examination was interpreted and the report reviewed and electronically signed by: DANNIELLE PETERSON MD on Jun 24 2024 1:49PM EST [id number] Normal [facility] FEMALE PELVIS TRANSVAGon 06-22-2024 US FEMALE PELVIS TRANSVAG * * *Final Report* * * DATE OF EXAM: Jun 22 2024 9:45AM WRU 1060 - US FEMALE PELVIS TRANSVAG / PROCEDURE REASON: LLQ pain * * * * Physician Interpretation * * * * EXAMINATION: TRANSVAGINAL AND LIMITED TRANSABDOMINAL FEMALE PELVIC ULTRASOUND CLINICAL HISTORY: LLQ pain x1 week; LMP is reported as 06/12/2024 TECHNIQUE: Sonography of the pelvis was performed by transvaginal and transabdominal (limited) techniques. Images were obtained and stored in a permanent archive. MQ: _2021 COMPARISON: None RESULT: Uterus: Prominent left myometrial vessels. -Size: 9.7 x 5.2 x 6.7 cm -Orientation: Anteverted -Endometrial echo complex: Evaluation of the endometrium was adequate. No endometrial abnormality. The endometrial echo complex measured 1.1 cm. -Cervix: Unremarkable. -Adenomyosis assessment: There are no sonographic findings of adenomyosis. -Fibroids: There are no fibroids. Right Ovary: 3.3 x 2.6 x 2.8 cm - Normal sonographic appearance with physiologic follicles. Doppler imaging showed normal arterial and venous flow throughout the ovary. Left Ovary: 3.3 x 3 x 2.7 cm - Normal sonographic appearance with physiologic follicles including a 2.1 cm dominant follicle. Doppler imaging showed normal arterial and venous flow throughout the ovary. Free Fluid: No abnormal free fluid is present. IMPRESSION: Normal sonographic appearance of the female pelvis. Specifically, no torsion. Forensic Structural Engineer: [facility] Transcribe Date/Time: Jun 24 2024 1:47P Dictated by : DANNIELLE PETERSON MD This examination was interpreted and the report reviewed and electronically signed by: DANNIELLE PETERSON MD on Jun 24 2024 1:49PM EST [id number] Normal [facility] Cobalamin (Vitamin B12) [Mass/Vol] 515 pg/mL Normal 232-1245 [facility] Comment on above: Order Comment: Speci men Type: BLOOD SPECIMEN Ordering Facility: [facility] Address: [address] [place] [address] Performed By: #### 2 132-9 #### [facility] CLIA [id number] [address] [place] [address] [place] CNOVon 06-15-2024 CNOV Office Visit (INTMWS ) DOV BLACKMON ([id number]) 1980 F Date Time Provider Department 06/15/24 9:20 AM JOLEEN RICE INTMWS During your visit today, we recorded the following information about you: Pulse Blood pressure Weight Height 92/minute 122/74 76.8 kg 1.72 m Joleen Rice MD 06/15/2024 12:02 PM Signed Reason for Visit Annual physical HPI Dov is a 43-year-old female presenting for a physical examination. Dov reports maintaining a stable weight of 169 lbs over the past three years, with a BMI of 25. She expresses a desire to lose 5 lbs and plans to increase physical activity, including walking, as the weather improves. Currently, her exercise is limited due to sciatica and back pain, but she remains active at home with her four children. She consumes a diet rich in green vegetables and notes weight fluctuations in the spring and summer. Dov reports poor sleep quality, attributing it to the stress of an ongoing divorce and single parenthood. She experiences fatigue upon waking and occasionally snores. She is currently taking Claritin, elderberry, Effexor once daily, and BuSpar 1-2 times daily, which she finds effective in managing anxiety and depression without side effects. She denies any moles of concern. Social History Tobacco Use Smoking status: Never Smokeless tobacco: Never Substance Use Topics Alcohol use: Yes Comment: not often Drug use: No Past medical history, appointments, medications, allergies reviewed. Pertinent Lab/Diagnostic Studies are reviewed and discussed today Current Outpatient Medications: venlafaxine ER (EFFEXOR XR) 75 mg 24 hr capsule busPIRone (BUSPAR) 7.5 mg tablet fluticasone (FLONASE) 50 mcg/actuation nasal spray loratadine (CLARITIN) 10 mg tablet ketotifen fumarate (ALLERGY EYE) 0.025 % (0.035 %) ophthalmic solution LACTOBACILLUS ACIDOPHILUS (PROBIOTIC ORAL) multivitamins(DAILY MULTIPLE TAB) triamcinolone acetonide (KENALOG) 0.1 % cream elderberry fruit (ELDERBERRY ORAL) Health Maintenance Depression Screening Anxiety Screening Hepatitis C Screening HIV Screening Mammogram Screening Covid-19 Vaccine( season)@ Review Of Systems Constitutional: (+) sleep disturbance Ears/Nose/Mouth/Throat : (+) ear pain Gastrointestinal: (+) stomach discomfort Musculoskeletal: (+) sciatica, (+) back pain Psychiatric: (+) anxiety, (+) depression Physical Exam BP 122/74 Pulse 92 Ht 172 cm (5' 7.72) Wt 76.8 kg (169 lb 6.4 oz) LMP 07/01/2020 (Approximate) SpO2 98% BMI 25.97 kg/m? GENERAL: NAD, alert and oriented. SKIN: Unremarkable, no rash or skin lesions. HEAD: Normocephalic. EYES: PERRLA, EOMI, conjunctiva clear. EARS: External ears normal, canals clear, TM's normal. NOSE/SINUSES: Nares normal. Septum midline. OROPHARYNX: Lips, mucosa, and tongue normal, good dentition. No oral lesions noted. NECK: Supple, no lymphadenopathy, normal thyroid, no carotid bruits. LUNGS: Clear to auscultation bilaterally, no wheezes/rhonchi/rales. HEART: Regular rate and rhythm, no murmurs. No ectopy. EXTREMITIES: Normal, no deformities, no skin discoloration, no edema. NEURO: Awake, alert and oriented x3, cranial nerves II-XII grossly intact, normal gait, no involuntary motions. Assessment and Plan 1. Annual physical exam (Z00.00) Patient's weight has remained stable over the past three years, with a current BMI of 25. Physical examination reveals clear ears, no significant moles, and no signs of sleep apnea. Patient reports occasional snoring and feeling tired upon waking. - Encouraged patient to lose 5 pounds to bring BMI down to 25. - Recommended increasing physical activity, such as walking, as weather permits. - Discussed the importance of a balanced diet and maintaining current healthy eating habits. - Advised monitoring sleep patterns and considering further evaluation if sleep disturbances persist. 2. 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 No side effects noted. Patient is under significant stress due to ongoing divorce and managing four children as a single parent. - Continue current medication regimen of Effexor and BuSpar. - Follow-up with [facility] in a couple of months to reassess medication efficacy and dosage. - Provided support and counseling during the visit, acknowledging the patient's current life stressors. Voice recognition software was used to compose this office note. Please excuse any unintended typographical errors. Recording using [employer] software for draft documentation of the visit was discussed with the patient/authorized automobile rental representative; all questions welcomed and answered. Pat (more content not included)... Normal [facility] XR Chest PA and Lateralon IMPRESSION: Unremarkable exam with no acute radiographic abnormality. Forensic Structural Engineer: GREGORIO Transcribe Date/Time: Aug 10 2020 9:45A Dictated by : CHELY GRANDE MD This examination was interpreted and the report reviewed and electronically signed by: CHELY GRANDE MD on Aug 10 2020 9:46AM [facility] DIVISION OF RADIOLOGY * * *Final Report* * * DATE OF EXAM: Aug 10 2020 9:07AM WOX [id number] - XR CHEST 2V FRONTAL/LAT / PROCEDURE REASON: multiple diagnoses * * * * Physician Interpretation * * * * EXAMINATION: CHEST RADIOGRAPH (2 VIEW FRONTAL & LATERAL) CLINICAL HISTORY: Intermittent chest pain Change in voice MQ: XC2_6 EXAM DATE/TIME: 08/10/2020 9:07 AM COMPARISON: No relevant prior studies available. RESULT: Lines, tubes, and devices: None. Lungs and pleura: No consolidation. No lung mass. No pleural effusion. No pneumothorax. Cardiomediastinal silhouette: Normal cardiomediastinal silhouette. Bones and soft tissues: Unremarkable. DIVISION OF RADIOLOGY Provider, [facility] Adilson Yancey - 08/10/2020 * * *Final Report* * * DATE OF EXAM: Aug 10 2020 9:07AM WOX 5291 - XR CHEST 2V FRONTAL/LAT / PROCEDURE REASON: multiple diagnoses * * * * Physician Interpretation * * * * EXAMINATION: CHEST RADIOGRAPH (2 VIEW FRONTAL & LATERAL) CLINICAL HISTORY: Intermittent chest pain Change in voice MQ: XC2_6 EXAM DATE/TIME: 08/10/2020 9:07 AM COMPARISON: No relevant prior studies available. RESULT: Lines, tubes, and devices: None. Lungs and pleura: No consolidation. No lung mass. No pleural effusion. No pneumothorax. Cardiomediastinal silhouette: Normal cardiomediastinal silhouette. Bones and soft tissues: Unremarkable. IMPRESSION IMPRESSION: Unremarkable exam with no acute radiographic abnormality. Forensic Structural Engineer: PSCB Transcribe Date/Time: Aug 10 2020 9:45A Dictated by : CHELY GRANDE MD This examination was interpreted and the report reviewed and electronically signed by: CHELY GRANDE MD on Aug 10 2020 9:46AM EST [facility] Radiology Study observation (narrative) [facility] XR Chest PA and LateralOrder ed By: [facility] Provider on 08-10-2020 [facility] Vital Signs Date Time Vital Sign Value Performing Clinician Fac[facility] 08-31-2024 12:22-0400 Body height 170.[address] Joleen Rice MD Work Phone: [facility] 08-31-2024 12:22-0400 Body mass index (BMI) [Ratio] 26.8 kg/m2 Dr. Joleen Rice MD Work Phone: [facility] 08-31-2024 12:22-0400 Body weight 77.[address] Joleen Rice MD Work Phone: [facility] 08-31-2024 12:22-0400 Diastolic blood pressure 69 mm[Hg] Dr. Joleen Rice MD Work Phone: [facility] 08-31-2024 12:22-0400 Systolic blood pressure 106 mm[Hg] Dr. Joleen Rice MD Work Phone: [facility] 07-14-2024 10:08-0400 Body height 170.[address] Joleen Rice MD Work Phone: 3(105)956-283695 [place] [address] 07-14-2024 10:08-0400 Body mass index (BMI) [Ratio] 26.9 kg/m2 Dr. Joleen Rice MD Work Phone: 7(421)920-568356 [place] [address] 07-14-2024 10:08-0400 Body temperature 97.6 [degF] Dr. Joleen Rice MD Work Phone: 5(297)574-238356 [place] [address] 07-14-2024 10:08-0400 Body weight 78.[address] Joleen Rice MD Work Phone: 9(674)565-110156 [place] [address] 07-14-2024 10:08-0400 Diastolic blood pressure 72 mm[Hg] Dr. Joleen Rice MD Work Phone: 0(799)098-978556 [place] [address] 07-14-2024 10:08-0400 Heart rate 82 /min Dr. Joleen Rice MD Work Phone: 6(477)396-740256 [place] [address] 07-14-2024 10:08-0400 Respiratory rate 17 /min Dr. Joleen Rice MD Work Phone: 1(113)899-713756 [place] [address] 07-14-2024 10:08-0400 SaO2% (BldA) [Mass fraction] 99 % Dr. Joleen Rice MD Work Phone: 8(604)712-734756 [place] [address] 07-14-2024 10:08-0400 Systolic blood pressure 124 mm[Hg] Dr. Joleen Rice MD Work Phone: 4(911)467-580556 [place] [address] 06-15-2024 09:19-0400 Body height 172 cm Joleen Rice MD Work Phone: 4(086)412-333313 [place] [address] 06-15-2024 09:19-0400 Body mass index (BMI) [Ratio] 25.97 kg/m2 Joleen Rice MD Work Phone: [facility] 06-15-2024 09:19-0400 Body weight 76.84 kg Joleen Rice MD Work Phone: 6(677)051-131613 [place] [address] 06-15-2024 09:19-0400 Diastolic blood pressure 74 mm[Hg] Joleen Rice MD Work Phone: [facility] 06-15-2024 09:19-0400 Heart rate 92 /min Joleen Rice MD Work Phone: [facility] 06-15-2024 09:19-0400 SaO2% (BldA) [Mass fraction] 98 % Joleen Rice MD Work Phone: [facility] 06-15-2024 09:19-0400 Systolic blood pressure 122 mm[Hg] Joleen Rice MD Work Phone: [facility] 04-15-2023 13:39-0500 Body temperature 97.9 [degF] Robert Corcoran MD Work Phone: [facility] 04-15-2023 13:39-0500 Body weight 74.84 kg Robert Corcoran MD Work Phone: [facility] 04-15-2023 13:39-0500 Diastolic blood pressure 82 mm[Hg] Robert Corcoran MD Work Phone: [facility] 04-15-2023 13:39-0500 Heart rate 82 /min Robert Corcoran MD Work Phone: [facility] 04-15-2023 13:39-0500 Respiratory rate 18 /min Robert Corcoran MD Work Phone: [facility] 04-15-2023 13:39-0500 SaO2% (BldA) [Mass fraction] 100 % Robert Corcoran MD Work Phone: [facility] 04-15-2023 13:39-0500 Systolic blood pressure 120 mm[Hg] Robert Corcoran MD Work Phone: [facility] 07-20-2022 15:14-0400 Body height 170.[address] Joleen Rice Work Phone: [facility] 07-20-2022 15:04-0400 Body mass index (BMI) [Ratio] 25.5 kg/m2 Dr. Joleen Rice Work Phone: [facility] 07-20-2022 15:04-0400 Body weight 73.[address] Joleen Rice Work Phone: 6(230)441-685276 [place] [address] 07-20-2022 15:04-0400 Diastolic blood pressure 70 mm[Hg] Dr. Joleen Rice Work Phone: [facility] 07-20-2022 15:04-0400 Systolic blood pressure 108 mm[Hg] Dr. Joleen Rice Work Phone: 7(435)136-249995 [place] [address] 07-30-2021 17:24-0400 Body height 168.9 cm Joleen Rice MD Work Phone: [facility] 07-30-2021 17:24-0400 Body temperature 97 [degF] Joleen Rice MD Work Phone: [facility] 07-30-2021 17:24-0400 Body weight 76.66 kg Joleen Rice MD Work Phone: [facility] 07-30-2021 17:24-0400 Diastolic blood pressure 60 mm[Hg] Joleen Rice MD Work Phone: [facility] 07-30-2021 17:24-0400 Heart rate 76 /min Joleen Rice MD Work Phone: [facility] 07-30-2021 17:24-0400 Respiratory rate 12 /min Joleen Rice MD Work Phone: [facility] 07-30-2021 17:24-0400 SaO2% (BldA) [Mass fraction] 97 % Joleen Rice MD Work Phone: [facility] 07-30-2021 17:24-0400 Systolic blood pressure 106 mm[Hg] Joleen Rice MD Work Phone: [facility] Encounters Encounter Date Encounter Type Care Provider Facility Start: 08-31-2024 Encounter for gynecological examination (general) (routine) without abnormal findings Farideh Christian [facility] Start: 08-31-2024 End: 08-31-[address] Farideh Christian MD [facility] Start: 08-31-2024 End: 08-31-[address] Farideh Christian MD -[facility] Work Phone: Start: 08-31-2024 End: 08-31-[address] Joleen Rice MD Work Phone: -[facility] Start: 07-14-2024 End: 07-14-[address] Chris Coats MD -[facility] Work Phone: Start: 07-14-2024 End: 07-14-[address] Joleen Rice MD Work Phone: [facility] Work Phone: Start: 07-04-2024 End: 08-04-2024 ambulatory Jolene Rice MD Work Phone: [facility] [place] Start: 06-26-2024 End: 08-26-2024 Follow-up encounter Joleen Rice MD Work Phone: [facility] [place] Start: 06-23-2024 End: 08-23-2024 Follow-up encounter Joleen Rice MD Work Phone: [facility] [place] Start: 06-22-2024 End: 06-22-2024 ambulatory JOLEEN RICE Facility:[facility] Start: 06-15-2024 End: 06-15-2024 Office outpatient new 45 minutes Joleen Rice MD Work Phone: [facility] [place] Comment on above: Annual physical exam (Primary Dx); Generalized anxiety disorder; Major depressive disorder, single episode, in partial remission; Vitamin B12 deficiency; Weight gain; Fatigue, unspecified type; Iron deficiency; LLQ pain Start: 06-15-2024 End: 06-15-2024 ambulatory JOLEEN RICE Facility:[facility] Start: 06-15-2024 End: 06-15-2024 Patient encounter procedure Joleen Rice MD Work Phone: [facility] Start: 02-18-2024 End: 02-18-2024 Patient encounter procedure Immunization Clinic Nurse [place] Work Phone: [facility] Comment on above: Arrived Start: 02-18-2024 End: 02-18-2024 ambulatory Immunization Clinic Nurse Campos Work Phone: [facility] Start: 08-04-2023 ambulatory Joleen Adams Work Phone: Internal [facility] Start: 05-03-2023 End: 05-03-2023 ambulatory [facility] Work Phone: Start: 05-03-2023 End: 05-03-2023 Discharged Recurring [facility] Work Phone: Start: 04-15-2023 End: 04-15-2023 Patient encounter procedure Robert Corcoran MD Work Phone: [facility] Comment on above: Contact dermatitis, unspecified contact dermatitis type, unspecified trigger (Primary Dx) Start: 12-12-2022 End: 12-12-2022 ambulatory Immunization Clinic Nurse Campos Work Phone: [facility] Start: 08-26-2022 ambulatory Joleen Adams Work Phone: [facility] Start: 07-20-2022 End: 07-20-[address] Joleen Rice Work Phone: [facility] Work Phone: Start: 07-20-2022 End: 07-20-[address] Joleen Rice Work Phone: [facility] Start: 03-05-2022 End: 03-05-2022 Patient encounter procedure Nurse [facility] Comment on above: Encounter for immuni zation (Primary Dx) Start: 09-30-2021 ambulatory Adalgisa sandoval APRN.CNP Work Phone: [facility] Start: 08-05-2021 Telephone encounter Joleen parmar MD Work Phone: [facility] [place] Comment on above: Results Start: 07-30-2021 End: 07-30-2021 Patient encounter procedure Joleen Rice MD Work Phone: [facility] [place] Comment on above: Annual physical exam (Primary Dx); Bilateral carpal tunnel syndrome; Headaches; Dyslipidemia Start: 08-10-2020 End: 08-10-2020 Subsequent hospital visit by physician Celia [facility] [place] Work Phone: Radiology Comment on above: Intermittent chest p ain [R07.9] Procedures Date Procedure Procedure Detail Performing Clinician Start: 08-31-2024 Screening mammography Bryan Rice MD Work Phone: Start: 12-12-2022 INFLUENZA VACCINE, A GE 6 MO - 64 YR, QUADRIVALENT (AFLURIA, FLULAVAL, FLUZONE) Davi Tatum MD Work Phone: Start: 07-20-2022 Screening mammography Bryan Rice Work Phone: Start: 03-05-2022 INFLUENZA VAC 4 THEODORE NT PSRV FREE 6 MO-64 YRS IM Ryan Trujillo MD Work Phone: Start: 09-29-2021 Adult depression scr eening assessment Adalgisa Tatum AUTOMATED MANUFACTURING INSTRUCTOR.ASSISTANT RESEARCH SCIENTIST Work Phone: Start: 07-30-2021 Adult depression scr eening assessment Joleen Rice MD Work Phone: Start: 08-10-2020 Radiologic exam ches t 2 views Adalgisa Tatum AUTOMATED MANUFACTURING INSTRUCTOR.ASSISTANT RESEARCH SCIENTIST Work Phone: Plan of Treatment Date Care Activity Detail Author Start: 01-31-2030 Urine microalbumin profile [facility] Start: 07-21-2027 HPV TESTING HPV TESTING [facility] Start: 07-21-2027 PAP TESTING PAP TESTING [facility] Start: 07-21-2027 Screening for malign ant neoplasm of cervix [facility] Start: 07-20-2025 Screening for malign ant neoplasm of cervix Cervical Cancer Screening [facility] Start: 04-19-2025 PAP TESTING PAP TESTING [facility] Start: 09-18-2024 End: 09-18-2024 Patient encounter procedure 09/18/2024 1:40 PM EDT Office Visit [facility] [place] [address] [facility] [place] [address] Joleen Rice MD [address] [place] [address] 3 month follow up [facility] [place] Comment on above: 3 month follow up Start: 06-22-2024 End: 06-22-2024 Patient encounter procedure 06/22/2024 9:15 AM EDT Appointment Radiology [address] [place] [address] LLQ pain [R10.32] Radiology Comment on above: LLQ pain [R10.32] Start: 06-15-2024 End: 09-14-2024 CBC W Auto Differential panel - Blood COMPLETE BLOOD COUNT AND DIFFERENTIAL Lab Routine Annual physical exam Expected: 06/15/2024, Expires: 09/14/2024 [facility] Comment on above: Expected: 06/15/2024 , Expires: 09/14/2024 Start: 06-15-2024 End: 09-14-2024 Cobalamin (Vitamin B12) [Mass/volume] in Serum or Plasma VITAMIN B12 Lab Routine Vitamin B12 deficiency Expected: 06/15/2024, Expires: 09/14/2024 [facility] Comment on above: Expected: 06/15/2024 , Expires: 09/14/2024 Start: 06-15-2024 End: 09-14-2024 Comprehensive metabolic 2000 panel - Serum or Plasma COMPREHENSIVE METABOLIC PANEL Lab Routine Annual physical exam Expected: 06/15/2024, Expires: 09/14/2024 [facility] Comment on above: Expected: 06/15/2024 , Expires: 09/14/2024 Start: 06-15-2024 End: 09-14-2024 Ferritin [Mass/volume] in Serum or Plasma FERRITIN Lab Routine Iron deficiency Expected: 06/15/2024, Expires: 09/14/2024 [facility] Comment on above: Expected: 06/15/2024 , Expires: 09/14/2024 Start: 06-15-2024 End: 09-14-2024 Iron and Iron binding capacity panel - Serum or Plasma IRON AND TIBC Lab Routine Iron deficiency Expected: 06/15/2024, Expires: 09/14/2024 [facility] Comment on above: Expected: 06/15/2024 , Expires: 09/14/2024 Start: 06-15-2024 End: 09-14-2024 Lipid 1996 panel - Serum or Plasma LIPID PANEL, FASTING Lab Routine Annual physical exam Expected: 06/15/2024, Expires: 09/14/2024 [facility] Work Phone: Comment on above: Expected: 06/15/2024 , Expires: 09/14/2024 Start: 06-15-2024 End: 09-14-2024 Thyrotropin [Units/volume] in Serum or Plasma THYROID STIMULATING HORMONE Lab Routine Weight gain Fatigue, unspecified type Expected: 06/15/2024, Expires: 09/14/2024 [facility] Comment on above: Expected: 06/15/2024 , Expires: 09/14/2024 Start: 10-31-2023 Covid-19 Vaccine ( season) Covid-19 Vaccine () [facility] Start: 10-31-2023 Influenza vaccination Influenza Vacc ine (#1) [facility] Start: 03-01-2023 Behavioral Health Screening Behavioral Health Screening [facility] Start: 03-01-2023 [facility] Start: 10-30-2022 Covid-19 Vaccine ( season) Covid-19 Vaccine ( season) [facility] Start: 09-29-2022 Adult depression screening assessment DEPRESSION SCREENING [facility] Start: 07-30-2022 Adult depression screening assessment DEPRESSION SCREENING [facility] Start: 07-20-2022 Liquid based cervica l cytology screening [facility] Start: 2022 Mammography [facility] Start: 2022 Screening for malign ant neoplasm of breast Mammogram Screening [facility] Start: 03-01-2022 DEPRESSION ASSESSMENT DEPRESSION ASS ESSMENT [facility] Start: 10-30-2021 Influenza vaccination INFLUENZA (#1) [facility] Start: 07-30-2021 End: 09-29-2021 INSULIN LIK GR FAC I INSULIN LIK GR FAC I Lab Routine Headaches Expected: 07/30/2021, Expires: 09/29/2021 [facility] Work Phone: Comment on above: Expected: 07/30/2021 , Expires: 09/29/2021 Start: 2012 HPV TESTING HPV TESTING [facility] Start: 2000 Anxiety Screening Anxiety Screening [facility] Start: 2000 Depression Screening Depression Scre ening [facility] Start: 2000 HEPATITIS C SCREENING HEPATITIS C [facility] Start: 2000 Hepatitis C screening Hepatitis C Sc [facility] Start: 2000 HIV SCREENING HIV SCREENING [facility] Start: 2000 HIV screening HIV Screening [facility] Start: 07-18-1987 COVID-19 VACCINE (#1) COVID-19 VACCI NE (#1) [facility] Start: 01-17-1983 COVID-19 VACCINE (#1) COVID-19 VACCI NE (#1) [facility] End: 08-03-2025 DBT Breast - bilateral screening JG SCREENING W LINDEN Radiology Routine Encounter for screening mammogram for breast cancer 1 Occurrences starting 07/04/2024 until 08/03/2025 [facility] Work Phone: Comment on above: 1 Occurrences starti ng 07/04/2024 until 08/03/2025 End: 09-25-2023 JG SCREENING JG SCREENING Radiology Routine Encounter for screening mammogram for breast cancer 1 Occurrences starting 08/26/2022 until 09/25/2023 [facility] Work Phone: Comment on above: 1 Occurrences starti ng 08/26/2022 until 09/25/2023 End: 09-02-2024 MG Breast Screening JG SCREENING Radiology Routine Encounter for screening mammogram for breast cancer 1 Occurrences starting 08/04/2023 until 09/02/2024 [facility] Work Phone: Comment on above: 1 Occurrences starti ng 08/04/2023 until 09/02/2024 Path report.final Dx Spec [facility] End: 07-15-2025 US Pelvis limited US FEMALE PELVIS TRANSABD LTD Radiology Routine LLQ pain 1 Occurrences starting 06/15/2024 until 07/15/2025 [facility] Comment on above: 1 Occurrences starti ng 06/15/2024 until 07/15/2025 End: 07-15-2025 US Pelvis transvaginal US FEMALE PELVIS TRANSVAG Radiology Routine LLQ pain 1 Occurrences starting 06/15/2024 until 07/15/2025 [facility] Comment on above: 1 Occurrences starti ng 06/15/2024 until 07/15/2025 [facility] Immunizations Immunization Date Immunization Notes Care Provider Janett sloan 02-18-2024 influenza, seasonal, injectable Immunization [place] Work Phone: [facility] 12-12-2022 influenza, injectabl e, quadrivalent, contains preservative Immunization [place] Work Phone: [facility] 12-12-2022 influenza virus vaccine, unspecified formulation Xr [place] Work Phone: [facility] 03-05-2022 influenza, injectabl e, quadrivalent, preservative free Nurse [place] [facility] Work Phone: 12-26-2020 influenza, injectabl e, quadrivalent, contains preservative Joleen Rice MD Work Phone: [facility] Work Phone: 02-01-2020 tetanus toxoid, reduced diphtheria toxoid, and acellular pertussis vaccine, adsorbed Joleen Rice MD Work Phone: [facility] 12-30-2019 influenza, seasonal, injectable Joleen Rice MD Work Phone: [facility] 08-13-2017 tetanus toxoid, reduced diphtheria toxoid, and acellular pertussis vaccine, adsorbed Joleen Rice MD Work Phone: [facility] 12-21-2015 influenza, injectabl e, quadrivalent, contains preservative Joleen Rice MD Work Phone: [facility] 07-19-2015 hepatitis B vaccine, adult dosage Joleen Rice MD Work Phone: [facility] 02-15-2015 hepatitis B vaccine, adult dosage Joleen Rice MD Work Phone: [facility] 01-11-2015 hepatitis B vaccine, adult dosage Joleen Rice MD Work Phone: [facility] 01-10-2015 influenza, injectabl e, quadrivalent, contains preservative Joleen Rice MD Work Phone: [facility] 08-15-2012 tetanus toxoid, reduced diphtheria toxoid, and acellular pertussis vaccine, adsorbed Joleen Rice MD Work Phone: [facility] Payers Date Payer Category Payer Self-pay [id number] 2022 Unknown [id number] 2022 Medicaid [id number] 2018 Unknown [employer] PPO [id number] 2018-Present [phone] [address] [place] [address] PPO [id number] 2018 Unknown [employer] PPO [id number] 2018-2022 [address] [place] [address] PPO [id number] Unknown [id number] Unknown [id number] Unknown [id number] Social History Date Type Detail Facility Start: 06-08-2016 End: 07-22-2023 Tobacco smoking status NHIS Never smoked tobacco [facility] Work Phone: Start: 07-30-2021 End: 04-15-2023 Alcohol intake Current drinker of alcohol (finding) [facility] Start: 2020 History SDOH Alcohol Binge 1 [facility] Start: 2020 History SDOH Social Connections Phone 2 [facility] Start: 2020 History SDOH Social Connections Get Together 4 [facility] Start: 2020 History SDOH Social Connections [facility] 3 [facility] Start: 2020 History SDOH Physical Activity MPS 6 [facility] Start: 2020 Education 17 [facility] Start: 1980 Sex Assigned At Female [facility] Start: 07-11-2020 End: 08-07-2021 Exposure to SARS-CoV-2 (event) Not sure [facility] Work Phone: Start: 06-08-2016 End: 04-15-2023 Tobacco use and exposure Smokeless tobacco non-user [facility] Start: 07-20-2022 End: 10-18-2022 Tobacco smoking status NHIS Unknown if ever smoked [facility] Start: 2020 End: 12-12-2022 History of Social function [facility] Start: 2020 End: 12-12-2022 Social connection and isolation panel [facility] Do you belong to any clubs or organizations such as episcopal groups, unions, fraternal or athletic groups, or school groups? Yes [facility] Are you now , , , , never or living with a partner? [facility] Frequency of Alcohol Consumption Not on file [facility] How often do you hav e 6 or more drinks on 1 occasion? Never [facility] How hard is it for y ou to pay for the very basics like food, housing, medical care, and heating Not very hard [facility] Do you feel stress - tense, restless, nervous, or anxious, or unable to sleep at night because your mind is troubled all the time - these days [OSQ] To some extent [facility] (I/We) worried wheindra er (my/our) food would run out before (I/we) got money to buy more. Never true [facility] At any time in the p ast 12 months, were you homeless or living in longterm [including now]? No [facility] Start: 07-09-2020 Gender identity Identifies as female gender (finding) [facility] Start: 07-09-2020 Sexual orientation Heterosexual (finding) [facility] Medical Equipment Procedure Code Equipment Code Equipment Origin al Text Equipment Identifier Dates MESH,VENTLEX ST ,LG 8CM FDA Start: 10-07-2017 MESH,VENTLEX ST ,LG 8CM FDA Start: 10-07-2017 MESH,VENTLEX ST ,LG 8CM FDA Start: 10-07-2017 MESH,VENTLEX ST ,LG 8CM FDA Start: 10-07-2017 Clinical Notes 08-10-2020 to 08-31-2024 Note Date & Type Note Facility 08-31-2024 Progress note [facility] 08-31-2024 Progress note Note Date/Time August 31, 2024 2:09pm [facility] [address], [address] [place] [address] OFFICE VISIT Date of Service: 08/31/24 MR#: [id number] Acct: [id number] Name: DOV BLACKMON Rep #: [id number] : 1980 Provider: Dr. 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 Is patient in pain?: No Allergies Penicillins Allergy (Intermediate, Verified 08/31/24 13:29) Rash Medications ?Medication ?Instructions ?Recorded ?Confirmed ?Type lactobacillus combination no.8 3 1 cap PO QDAY supplem ent 03/03/17 08/31/24 History billion cell capsule (Adult Probiotic) loratadine 10 mg tablet (Claritin) 10 mg PO QDAY PRN a llergy symptoms 03/03/17 08/31/24 History prenat.vits,annel,vwx-qvax-kmiyp 1 tab PO QDAY SUPPLEMEN T 03/03/17 08/31/24 History ( Vitamin tablet) cholecalciferol (vitamin D3) 50 50 mcg PO DAILY 08/31/24 History mcg (2,000 unit) capsule omega-3 fatty acids 1,000 mg 1,000 mg PO DAILY 2 08/31/24 History capsule buspirone 7.5 mg tablet 7.5 mg PO TID #90 TABLETS 08/31/24 Rx venlafaxine 75 mg capsule,extended 75 mg PO DAILY #30 caps 08/31/24 08/31/24 Rx release 24 hr (Effexor XR) Is last menstrual period known: Yes Last Menstrual Period: 08/10/24 Post menopausal: No Patient : No : No [facility] Medical History (Updated 08/31/24 @ 13:[address] Farideh Christian MD) Blighted ovum (~10/2018) Umbilical hernia Surgical History H/O dilation and curettage (~10/2018) S/P colonoscopy S/P wisdom tooth extraction Family History Mother Arthritis Hypertension Heart disease Sister Asthma Father , Lung cancer Lung cancer Social History adopted: No household members: family housing: house number of children: 4 current occupational status: unemployed pets and animals: Yes sexually active: Yes Smoking Status: Never smoker second hand exposure: No alcohol intake: never substance use type: does not use caffeine: No what type of physical activity do you participate in: none frequency: does not exercise seatbelt use: always do you feel safe at home: Yes additional social history: Spouse: Misha [employer] History 5 Elective abortions Hx Para 4 Spontaneous abortions 1 Hx # Term Pregnancies 4 Ectopic pregnancies Hx # Pregnancies Multiple births # of living children 4 Past Pregnancies Del. Date Name GA/Weeks Outcome Route Bth Weight Infant Gen Labor Lgth Anesthesia Del Locatn Provider FOB Unknown 11/13/2009 Adalyn 39 live - full term 6lbs 10 oz Female less than 24 hours epidural [place] [facility] Misha Unknown 11/01/2012 Alliance 39 live - full term 8lbs 6oz Male less than 24 hours epidural [place] [facility] Alverto Cabral Unknown 08/30/2017 Deyanira 37 live - full term 7 lbs Fe male 9 hours epidural [place] 02/27/20 Dileep 40 live - full term Male [facility] Shukri Delivery Date: 02/27/20 Last Updated by: Nyla ACEVEDO HPI Encounter for routine gynecological examination Details: DOV BLACKMON is a 44 year old who presents for annual exam. Last PAP: 07/20/22 History of abnormal PAP: 07/20/22 - ASCUS / HPV neg Last mammogram: done today History of abnormal mammogram: Colon cancer screening: colonoscopy 2020 Other preventative health care screenings: PCP Seven Female Reproductive History Last Menstrual Period: 08/10/24 ROS ROS Narrative The patient is a 44-year-old female presenting for a routine wellness visit and management of anxiety. She reports ongoing management of anxiety with Buspar, taken twice daily, which she finds effective in maintaining her mental health stability. She is also undergoing formal therapy and finds it beneficial. The patient describes a recent episode of sharp abdominal pain, which occurred during menstruation, leading to an ultrasound that showed no abnormalities. Her menstrual cycles are regular, occurring every 28 to 30 days, lasting up to sevendays, with occasional heavy flow. She has a history of a hernia, which was evaluated a few months ago, and no significant changes were noted. The patient reports experiencing sunburn due to lack of sunscreen use during outdoor activities. She is currently in the process of a divorce, which has been a source of stress,but she maintains a positive outlook with support from friends and family. Exam Const General: cooperative, healthy appearing, comfortable, no acute distress, well developed and well groomed HENWA Head: normal to inspection and normocephalic Ears: hearing grossly normal bilaterally and external ears normal Nose: external nose normal Face and sinus: normal facial exam Neck Neck: normal visual inspection, full ROM and no lymphadenopathy Thyroid: thyroid normal Chest Chest palpation & inspection: normal inspection of the chest Breast inspection: normal inspection of the breasts and normal inspection of theaxillae Breast palpation: normal palpation of the breasts, normal palpation of the axillae and no axillary lymphadenopathy Resp Effort & Inspection: normal respiratory effort GI Inspection: normal to inspection and non-distended Palpation: soft, no hepatosplenomegaly and no guarding Other: hernia mesh palpated General: bladder normal to palpation External Female Exam: normal external appearance, normal appearance of the urethra and no lesions Urethra: normal appearance of the urethra and normal palpation Speculum Exam - Vagina: normal appearance of the vagina and normal vaginal discharge Speculum Exam - Cervix: normal appearance of the cervix, no cervical discharge, no lesions and nontender Bimanual Exam- Vagina & Uterus: normal bimanual exam, uterine size normal, bladder normal to palpation, No tender, uterine mobility normal, consistency normal, non-tender and no cervical motion tenderness Bimanual Exam- Adnexa, other: normal adnexae, no masses and non-tender Skin General: no rashes or lesions noted Neuro General: patient alert, moves all extremities and no focal motor deficits Extrem General: normal to inspection and no pedal edema Psych Appearance: grossly normal Mental Status: mental status grossly normal Affect: normal affect Speech and Movement: speech and movement normal Attitude: cooperative Coding Level of Care Code Off vis,est,prev 40-64yrs Diagnoses Encounter for routine gynecological examination Z01.419 Generalized anxiety disorder F41.1 ASCUS of cervix with negative high risk HPV R87.610 Assessment and Plan Assessment and Plan (1) Encounter for routine gynecological examination: (2) Generalized anxiety disorder: Status: Acute Comment: counseling, buspar, effexor, (3) ASCUS of cervix with negative high risk HPV: Status: Acute Comment: Repeat pap in 3 yrs Medications: Refilled buspirone 7.5 mg PO TID 90 TABLETS 12RF venlafaxine ER (Effexor XR) 75 mg PO DAILY 30 caps 12RF Plan Cervical cancer screening: pap up to date Breast cancer screening: mamm other health maintenance examination reviewed and orders placed if needed. Encouraged maintenance of a healthy weight and active lifestyle and handout given. Annual exam handout including recommendations for good health guidelines, Calcium/vitamin D recommendations, and basic screening information given. Problem list up to date, see problem list details for any additional plan information. Follow up in one year for annual health maintenance exam or sooner if needed. 08/31/24 [id number] <Electronically signed by Farideh odom MD> Date _ Farideh Zaldivar Signature: Date (if applicable) CC: ~ [facility] Work Phone: 1(743) 310-104705-16-2025 Evaluation note* Diagnosis Onset Date Resolution Status Admit Date Umbilical hernia resolved June 9:59am ASCUS of cervix with negativ e high risk HPV acute August 31, 2024 1 :21pm Generalized anxiety disorder acute August 31, 2024 1:21pm Encounter for routine gynecological examination noneactive August 312024 1:21pm [facility] Work Phone: 1(785) 639-780805-06-2025 NotePatient Outreach (INTMWS) DOV BLACKMON ([id number]) 1980 F Date Time Provider Department 07/04/24 JOLEEN RICE INTMWS During your visit today, we recorded the following information about you: Allergies As of Date: 07/04/2024 Noted Allergy Reaction AMOXICILLIN 12/01/2007 2 - Rash 4 - Hives 7 - Swelling PENICILLINS 12/01/2007 2 - Rash 4 - Hives 7 - Swelling Date Reviewed: 06/15/2024 Reviewed by: Fanta Kohli LPN - Fully Assessed Visit Diagnosis:Encounter for screening mammogram for breast cancer [Z12.31] Order(s):JG SCREENING W LINDEN [[id number]] Order #: [id number] FUTURE Prescriptions as of 08/04/2024 - venlafaxine ER (EFFEXOR XR) 75 mg 24 hr capsule Take 1 capsule by mouth once daily. - busPIRone (BUSPAR) 7.5 mg tablet Take 7.5 mg by mouth two times a day. - triamcinolone acetonide (KENALOG) 0.1 % cream Apply 1 application to affected area two times a day. Apply to affected area. Location: arms - elderberry fruit (ELDERBERRY ORAL) Take by mouth once daily. - fluticasone (FLONASE) 50 mcg/actuation nasal spray Use 2 Sprays in each nostril once daily. - loratadine (CLARITIN) 10 mg tablet Take 1 tablet by mouth once daily. - ketotifen fumarate (ALLERGY EYE) 0.025 % (0.035 %) ophthalmic solution Use 1 Drop in both eyes twice daily. - LACTOBACILLUS ACIDOPHILUS (PROBIOTIC ORAL) Take by mouth once daily. - multivitamins(DAILY MULTIPLE TAB) Take by mouth. Problem List As Of Date 07/04/2024 Noted Resolved TM JOINT DISORDER, UNSPEC [M26.609] 12/01/2007 HYPERLIPIDEMIA NEC/NOS [E78.5] 12/01/2007 ALOPECIA NOS [L65.9] 12/01/2007 Family history of colonic polyps [Z83.719] 09/13/2015 Encounter Status:Closed by NeGoBuY, CPA ExchangeUSER on 08/04/24[facility] 06-22-2024 NoteHNO ID: [id number] Author: YANET BOLIVAR RDMS Service: ? Author Type: Advance Agent Type: Progress Notes Filed: 06/22/2024 13:45 Note Text: Radiology Service Progress Note PATIENT NAME: Dov Blackmon DATE OF SERVICE: June 22, 2024 TIME: 1:45 PM PATIENT IDENTITY VERIFICATION COMPLETED USING TWO (2) IDENTIFIERS: Name and Date of confirmed by patient verbally. FALL SCREENING: Has the patient had 2 falls in the last year or 1 fall with injury or currently using an Ambulatory Assistive Device (Walker, Cane, Wheelchair, Crutches, etc.)? No PATIENT GENDER DATA: Assigned female at . status: : No status: NO. PATIENT RELEVANT IMPLANT DATA REVIEWED: Not Applicable PATIENT PRESENTS WITH AN IMPLANTABLE OR ATTACHED PORTABLE GRINDING MACHINE OPERATOR: No RADIOLOGY DEPARTMENT: Ultrasound PERIPHERAL IV DATA: Not applicable SIGNED BY: Yanet Bolivar RDMS RVT June 22, 2024 1:45 [facility]04-17-2025 Instructions* Patient Instructions* Joleen Rice MD - 06/15/2024 10:09 AM EDT We discussed your physical exam and overall health: - Your weight has remained stable over the past year at 169 lbs, with a BMI of 25. I recommend aiming to lose 5 lbs to bring your BMI slightly lower, which would be beneficial for your overall health. This is a manageable goal, and incorporating regular exercise, such as walking, can help. - You mentioned that you plan to increase your activity level as the weather improves. Continue to focus on walking and consider exploring other forms of exercise that accommodate your sciatica and back pain. - Your diet appears to be healthy, with a focus on green vegetables. Continue to monitor how certain foods affect your stomach, especially during periods of stress or anxiety. We discussed your sleep and stress management: - You reported difficulty sleeping, which may be related to the stress of your current life circumstances, including your divorce and responsibilities as a single parent. Once the divorce process is finalized, your sleep may improve. - You mentioned occasional snoring and feeling tired upon waking. If these symptoms persist or worsen, we can evaluate further for possible sleep apnea. We discussed your current medications: - You are currently taking Effexor once daily and BuSpar 1-2 times daily for anxiety and depression. You reported that these medications are helping you manage stress and improve your ability to handle challenging situations. You are not experiencing side effects, and the dosages appear appropriate. - You also take Claritin and elderberry as needed. Continue these as directed. - You do not need refills at this time, but please let me know if you run low on any of your medications. We discussed next steps: - If you need additional support for stress management or sleep issues, please let me know. - Continue your current medications and healthy lifestyle habits. - Follow up with your OB[facility] as planned in a couple of months to review your medications and overall health. Please reach out if you have any new concerns or need further assistance. Please consider Yoga. documented in this encounterOhiohealth [facility]04-17-2025 NoteHNO ID: [id number] Author: JOLEEN RICE MD Service: ? Author Type: Physician Type: Progress Notes Filed: 06/15/2024 12:02 Note Text: Reason for Visit Annual physical HPI Dov is a 43-year-old female presenting for a physical examination. Dov reports maintaining a stable weight of 169 lbs over the past three years, with a BMI of 25. She expresses a desire to lose 5 lbs and plans to increase physical activity, including walking, as the weather improves. Currently, her exercise is limited due to sciatica and back pain, but she remains active at home with her four children. She consumes a diet rich in green vegetables and notes weight fluctuations in the spring and summer. Dov reports poor sleep quality, attributing it to the stress of an ongoing divorce and single parenthood. She experiences fatigue upon waking and occasionally snores. She is currently taking Claritin, elderberry, Effexor once daily, and BuSpar 1-2 times daily, which she finds effective in managing anxiety and depression without side effects. She denies any moles of concern. Social History Tobacco Use Smoking status: Never Smokeless tobacco: Never Substance Use Topics Alcohol use: Yes Comment: not often Drug use: No Past medical history, appointments, medications, allergies reviewed. Pertinent Lab/Diagnostic Studies are reviewed and discussed today Current Outpatient Medications: venlafaxine ER (EFFEXOR XR) 75 mg 24 hr capsule busPIRone (BUSPAR) 7.5 mg tablet fluticasone (FLONASE) 50 mcg/actuation nasal spray loratadine (CLARITIN) 10 mg tablet ketotifen fumarate (ALLERGY EYE) 0.025 % (0.035 %) ophthalmic solution LACTOBACILLUS ACIDOPHILUS (PROBIOTIC ORAL) multivitamins(DAILY MULTIPLE TAB) triamcinolone acetonide (KENALOG) 0.1 % cream elderberry fruit (ELDERBERRY ORAL) Health Maintenance Depression Screening Anxiety Screening Hepatitis C Screening HIV Screening Mammogram Screening Covid-19 Vaccine( season)@ Review Of Systems Constitutional: (+) sleep disturbance Ears/Nose/Mouth/Throat: (+) ear pain Gastrointestinal: (+) stomach discomfort Musculoskeletal: (+) sciatica, (+) back pain Psychiatric: (+) anxiety, (+) depression Physical Exam BP 122/74 Pulse 92 Ht 172 cm (5' 7.72) Wt 76.8 kg (169 lb 6.4 oz) LMP 07/01/2020 (Approximate) SpO2 98% BMI 25.97 kg/m? GENERAL: NAD, alert and oriented. SKIN: Unremarkable, no rash or skin lesions. HEAD: Normocephalic. EYES: PERRLA, EOMI, conjunctiva clear. EARS: External ears normal, canals clear, TM's normal. NOSE/SINUSES: Nares normal. Septum midline. OROPHARYNX: Lips, mucosa, and tongue normal, good dentition. No oral lesions noted. NECK: Supple, no lymphadenopathy, normal thyroid, no carotid bruits. LUNGS: Clear to auscultation bilaterally, no wheezes/rhonchi/rales. HEART: Regular rate and rhythm, no murmurs. No ectopy. EXTREMITIES: Normal, no deformities, no skin discoloration, no edema. NEURO: Awake, alert and oriented x3, cranial nerves II-XII grossly intact, normal gait, no involuntary motions. Assessment and Plan 1. Annual physical exam (Z00.00) Patient's weight has remained stable over the past three years, with a current BMI of 25. Physical examination reveals clear ears, no significant moles, and no signs of sleep apnea. Patient reports occasional snoring and feeling tired upon waking. - Encouraged patient to lose 5 pounds to bring BMI down to 25. - Recommended increasing physical activity, such as walking, as weather permits. - Discussed the importance of a balanced diet and maintaining current healthy eating habits. - Advised monitoring sleep patterns and considering further evaluation if sleep disturbances persist. 2. 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 No side effects noted. Patient is under significant stress due to ongoing divorce and managing four children as a single parent. - Continue current medication regimen of Effexor and BuSpar. - Follow-up with OB[facility] in a couple of months to reassess medication efficacy and dosage. - Provided support and counseling during the visit, acknowledging the patient's current life stressors. Voice recognition software was used to compose this office note. Please excuse any unintended typographical errors. Recording using ambient [employer] software for draft documentation of the visit was discussed with the patient/authorized automobile rental representative; all questions welcomed and answered. Patient/authorized automobile rental representative agreed to proceed Joleen Rice [facility]04-17-2025 History of Present illness Narrative* Joleen Rice MD - 06/15/2024 9:48 AM EDT Reason for Visit Annual physical HPI Dov is a 43-year-old female presenting for a physical examination. Dov reports maintaining a stable weight of 169 lbs over the past three years, with a BMI of 25. She expresses a desire to lose 5 lbs and plans to increase physical activity, including walking,as the weather improves. Currently, her exercise is limited due to sciatica and back pain, but she r emains active at home with her four children. She consumes a diet rich in green vegetables and notes weight fluctuations in the spring and summer. Dov reports poor sleep quality, attributing it to the stress of an ongoing divorce and single parenthood. She experiences fatigue upon waking and occasionally snores. She is currently taking Claritin, elderberry, Effexor once daily, and BuSpar 1-2 times daily, which she finds effective in managing anxiety and depression without side effects. She denies any moles of concern. Social History Tobacco Use Smoking status: Never Smokeless tobacco: Never Substance Use Topics Alcohol use: Yes Comment: not often Drug use: No Past medical history, appointments, medications, allergies reviewed. Pertinent Lab/Diagnostic Studies are reviewed and discussed today Current Outpatient Medications: venlafaxine ER (EFFEXOR XR) 75 mg 24 hr capsule busPIRone (BUSPAR) 7.5 mg tablet fluticasone (FLONASE) 50 mcg/actuation nasal spray loratadine (CLARITIN) 10 mg tablet ketotifen fumarate (ALLERGY EYE) 0.025 % (0.035 %) ophthalmic solution LACTOBACILLUS ACIDOPHILUS (PROBIOTIC ORAL) multivitamins(DAILY MULTIPLE TAB) triamcinolone acetonide (KENALOG) 0.1 % cream elderberry fruit (ELDERBERRY ORAL) Health Maintenance Depression Screening Anxiety Screening Hepatitis C Screening HIV Screening Mammogram Screening Covid-19 Vaccine( season)@ Review Of Systems Constitutional: (+) sleep disturbance Ears/Nose/Mouth/Throat: (+) ear pain Gastrointestinal: (+) stomach discomfort Musculoskeletal: (+) sciatica, (+) back pain Psychiatric: (+) anxiety, (+) depression Physical Exam BP 122/74 Pulse 92 Ht 172 cm (5' 7.72) Wt 76.8 kg (169 lb 6.4 oz) LMP 07/01/2020 (Approximate) SpO2 98% BMI 25.97 kg/m GENERAL: NAD, alert and oriented. SKIN: Unremarkable, no rash or skin lesions. HEAD: Normocephalic. EYES: PERRLA, EOMI, conjunctiva clear. EARS: External ears normal, canals clear, TM's normal. NOSE/SINUSES: Nares normal. Septum midline. OROPHARYNX: Lips, mucosa, and tongue normal, good dentition. No oral lesions noted. NECK: Supple, no lymphadenopathy, normal thyroid, no carotid bruits. LUNGS: Clear to auscultation bilaterally, no wheezes/rhonchi/rales. HEART: Regular rate and rhythm, no murmurs. No ectopy. EXTREMITIES: Normal, no deformities, no skin discoloration, no edema. NEURO: Awake, alert and oriented x3, cranial nerves II-XII grossly intact, normal gait, no involuntary motions. Assessment and Plan 1. Annual physical exam (Z00.00) Patient's weight has remained stable over the past three years, with a current BMI of 25. Physical examination reveals clear ears, no significant moles, and no signs of sleep apnea. Patient reports occasional snoring and feeling tired upon waking. - Encouraged patient to lose 5 pounds to bring BMI down to 25. - Recommended increasing physical activity, such as walking, as weather permits. - Discussed the importance of a balanced diet and maintaining current healthy eating habits. - Advised monitoring sleep patterns and considering further evaluation if sleep disturbances persist. 2. 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 No side effects noted. Patient is under significant stress due to ongoing divorce andmanaging four children as a single parent. - Continue current medication regimen of Effexor and BuSpar. - Follow-up with OB[facility] in a couple of months to reassess medication efficacy and dosage. - Provided support and counseling during the visit, acknowledging the patient's current life stressors. Voice recognition software was used to compose this office note. Please excuse any unintended typographical errors. Recording using ambient [employer] software for draft documentation of the visit was discussed with the patient/authorized automobile rental representative; all questions welcomed and answered. Patient/authorized automobile rental representative agreed to proceed Joleen Rice MD documented in this encounterOhiohealth [facility]03-04-2024 Discharge summary Author Keyla Bailon [facility] May 03, 2023 12:01pm Note Date/Time May 03, 2023 12:0 1pm [facility] Physical Therapy [facility] [address] [place] [address] / REHABILITATION SERVICES DISCHARGE SUMMARY MR#: [id number] Acct: [id number] Name: DOV BLACKMON Rep #: [id number] : 1980 42 From: Keyla Bailon MP T Referring Dr.: MIRIAM Peña Status: REG R Insurance: [employer] Discharge Summary D/C summary: It has been my pleasure to treat DOV BLACKMON referred by Dr. Pato Peña, MIRIAM, with the diagnosis of L plantar fascitis/5th met fx for atotal of 17 visit(s). Discharge Date: 05/03/23 Please see the following information for a summary of their discharge status. Subjective Subjective: Pt is feeling good. She has no pain. She walked a few miles yesterday but had slight pain in the Right. She does stairs without pain. She goes back to the Dr at the end of the month. She is doing tennis ball on her feet and stretching against the wall. Pain L foot pain: Pain Intensity (Out of 10): 2 R foot pain: Pain Intensity (Out of 10): 2 Overall Improvement % Improvement: 90 Objective Objective/Function: R ankle MMT R DF 17.7 PF 16.3, INV 8.6, EV 9.6 L ankle MMT: DF 12.7, PF 11.6 INV 8.2, EV 9.5 R ankle AROM:4, 40 1, 45, 8 L ankle AROM: 4 DF and 45 PF, INV 27 and EV 9 Goals Goal 1:: I HEP Goal Progress: Goal Met Goal 2:: Increase L ankle AROM (at the time of the eval: R ankle AROM:3, 4 1, 21, 6 L ankle AROM: 2 DF and 42 PF, INV 12 and EV 5). Goal Progress: Goal Met Goal 3:: Increase L ankle strength (at the time of the eval: R ankle MMT R DF 11.2 PF 12.5, INV 10.5, EV 13.2 L ankle MMT: DF 7.2, PF 7.2, INV 4.9, EV 5.7 Goal Progress: Goal Met Goal 4:: Decrease sx of pain to be able to walk with normal gait pattern withoutpain Goal Progress: Progressing Plan Plan: DC PT to HEP Gave blue band to increase exercises at home D/C Information Discharge Comments: DC PT to HEP d/c sentence: If there are questions or concerns regarding this patient's physical therapy, please feel free to call me at [phone]. Thank you for the referral of thispatient. Sincerely, Keyla Bailon, MARY Balance/Gait/Functional tests Balance/Special Test Scores Lower Extremity Functional Score: 63 Improvement % Improvement: 90 <Electronically signed by Keyla Bailon MPT> 05/03/23 1201 CC: MIRIAM Peña; No Primary Care Physician ~ Signed [facility] Work Phone: [phone]) [phone] History of Present illness Narrative* Robert Corcoran MD - 04/15/2023 1:41 PM EST Patient presents with: Rash: Bilateral arms x1 week, started on L bicep HPI: Rash: Location: initially on left biceps, now on both forearms too Duration: 1 week Pruritis: Yes Pain: No Change: new spots Bleeding/ulceration/blister/pustule: red slightly swollen patches Contacts with rash: No Exposure: has a dog. Outdoor exposure: child was playing outside. Change in medications: . Recent illness: URI without fever. Treatment: hydrocortisone cream MEDICATIONS: busPIRone (BUSPAR) 7.5 mg tablet Take 7.5 mg by mouth three times a day. elderberry fruit (ELDERBERRY ORAL) Take by mouth once daily. fluticasone (FLONASE) 50 mcg/actuation nasal spray Use 2 Sprays in each nostril once daily. loratadine (CLARITIN) 10 mg tablet Take 1 tablet by mouth once daily. ketotifen fumarate (ALLERGY EYE) 0.025 % (0.035 %) ophthalmic solution Use 1 Drop in both eyes twice daily. LACTOBACILLUS ACIDOPHILUS (PROBIOTIC ORAL) Take by mouth once daily. multivitamins(DAILY MULTIPLE TAB) Take one(1) tablet daily. ALLERGIES: ALLERGIES Allergen Reactions Amoxicillin Rash, Hives, Swelling Penicillins Rash, Hives, Swelling VITALS: BP 120/82 Pulse 82 Temp 36.6 C (97.9 F) Resp 18 Wt 74.8 kg (165 lb) LMP 07/01/2020 (Approximate) SpO2 100% BMI 26.23 kg/m PHYSICAL EXAM: GEN: pleasant, no acute distress, alert SKIN: about 1/2 dozen 3-4cm patches on the ventral arms which are erythematous and slightly indurated with rough fine bumpy surface. No vesicles or pustules. There is a larger 6cm area left biceps area. ASSESSMENT/PLAN: 1. Contact dermatitis, unspecified contact dermatitis type, unspecified trigger - ICD9: 692.9, ICD10: L25.9 areas are somewhat like bites/stings, surface characteristics are more consistent with contact dermatitis. Uncertain vector. - TRIAMCINOLONE ACETONIDE 0.1 % TOPICAL CREAM Follow up with worsening or persistent rash. Robert Corcoran MD documented in this encounterOhiohealth [facility]08-02-2022 History of Present illness Narrative* Oneyda Negrete RN - 09/30/2021 11:39 AM EDT [facility] Questionnaire Series Follow-up Follow-up: 12 months Call attempt: 3rd Attempt Call status: Left message Next call date: 10/02/2021 documented in this [facility]06-09-2022 Miscellaneous Notes* Telephone Encounter - Lisaradha Hoang APRN.CNP - 08/07/2021 3:24 PM EDT Noted. Lisa Hoang APRN.CNP * Telephone Encounter - Lucita Cr LPN - 08/07/2021 9:15 AM EDT Pt called back and information. All the vitamins have been prescribed except the Biotin. She was taking this on her own. Since the lab work results came back she has stopped the Biotin. She was transferred to tubing tester to schedule apt with Endo. Lucita Cr LPN * Telephone Encounter - Joleen Rice MD - 08/06/2021 8:34 PM EDT I am not certain that I can give a good answer to her question, We could try getting off them but I think that the endo would let her know if that has affected thenumbers Also why was she taking such high levels of vitamins? Was there a particular reason? * Telephone Encounter - Padmini Manning LPN - 08/06/2021 8:53 AM EDT Patient returned call and went over results, notes from Dr Rice. Did not schedule Endocrine appt as yet patient has questions. Patient asking if taking Biotin 5000 mcg daily, vitamin one daily, [place] 3, 2000 mg one daily, Zinc one daily and Tumeric 500 mg daily would have effected the Growth Hormone levels? She has stopped taking the Biotin for now, asking if she should have the lab test done again off all of these items? Please advise * Telephone Encounter - Gloria Castellanos Ma - 08/06/2021 8:31 AM EDT Left message for return call. * Telephone Encounter - Joleen Rice MD - 08/05/2021 5:35 PM EDT Cholesterol is a little on the higher side, blayne the bad Cutting down red meat and dairy products should help her. The growth hormone level is increased, please assist her in getting a endocrine appointment * Telephone Encounter - Harika Parisi RN - 08/05/2021 10:56 AM EDT Patient calls and is asking about lab results that were done on 08/01/2021. Please review and advise, Harika Parisi RN documented in this encounterOhiohealth [facility]06-01-2022 History of Present illness Narrative* Joleen Rice MD - 07/30/2021 5:47 PM EDT Reason for Visit Patient presents with: Established Patient: physical Dov Blackmon is a 41 year old female who presents here today for Above Complaints.. Health Maintenance COVID-19 VACCINE(1) HEPATITIS C SCREENING HIV SCREENING HPV TESTING HPI Diet- she only drinks pop occasionally, drinks a cup of tea. Eats fiber cereal for breakfast, and lunch is light, she does not snack too much in the day. Dinner is largest meal. Snack are usually tortilla chips and kettle chips. She is not a big raw vegetable person. Sleep- she has good sleep over all Stress- she does not have stress, but works 50 hours a week. Exercise- sits at a computer for over 10 hours, does not exercise much at all she has 4 kids. Is 41and sitting.. She has 4 kids.... 10,7, 3 and then a 17 month old. Close friend who is in hospice and struggling with that loss. Has had 2 colonoscopies. As she has tubular adenomas. She does not drink or smoke. Reviewed her lipids , her ldl is elevated, discussed cutting down red meat and dairy product Discussed weight loss and exercise. Next year she is going to start with her mammogram. Seeing sports medicine doc , for carpal tunnel. She has been referred to another doctor for the same. She also has elbow issues. She does not think it is a pulled muscle. Patient gets warmer in the summer ring sizes are increasing, shoes are tighter, she has gained 6 pounds but nothing really drastic. Headache and carpal tunnel. No problem-specific Assessment & Plan notes found for this encounter. PAST MEDICAL HISTORY Diagnosis Date Alopecia, unspecified 12/01/2007 COVID-19 Family history of colonic polyps 09/13/2015 Other and unspecified hyperlipidemia 12/01/2007 PAST SURGICAL HISTORY Procedure Laterality Date COLONOSCOPY FLX DX W/COLLJ SPEC WHEN PFRMD 09/13/15 Colonoscopy NONE FAMILY HISTORY Problem Relation Age of Onset Hypertension Mother Ischemic Heart Disease Mother Cancer Father lung Prostate Cancer Paternal Grandfather Asthma Sister Asthma Brother other (colon polyps) Brother other (colon polyps) Sister Social History Tobacco Use Smoking status: Never Smoker Smokeless tobacco: Never Used Substance Use Topics Alcohol use: Yes Comment: not often Drug use: No Past medical history, appointments, medications, allergies reviewed. Pertinent Lab/Diagnostic Studies are reviewed and discussed today Current Outpatient Medications: elderberry fruit (ELDERBERRY ORAL) fluticasone (FLONASE) 50 mcg/actuation nasal spray loratadine (CLARITIN) 10 mg tablet ketotifen fumarate (ALLERGY EYE) 0.025 % (0.035 %) ophthalmic solution LACTOBACILLUS ACIDOPHILUS (PROBIOTIC ORAL) multivitamins(DAILY MULTIPLE TAB) Current Facility-Administered Medications: perflutren lipid microspheres 1.3 mL in NaCl (PF) 0.9% 10 mL injection (DEFINITY) sodium chloride 0.9 % (flush) 10 mL (BD POSIFLUSH) Review of Systems CONSTITUTIONAL: No fevers, chills night sweats, unintended weight loss CARDIOVASCULAR: No chest pain, dyspnea, palpitations, orthopnea, PND, ankle edema. PULM: No dyspnea, unexplained cough. GI: No dysphagia/odynophagia, problematic reflux, constipation, diarrhea, changes in stool habits, hematochezia, melena. : No new urinary complaints, including dysuria, gross hematuria or pyuria. NEURO: No new balance problems, peripheral weakness/paresthesias or numbness of concern. Physical Exam BP 106/60 (BP Site: Left Arm, BP Position: Sitting, BP Cuff Size: Large Adult) Pulse 76 Temp 36.1 C (97 F) Resp 12 Ht 168.9 cm (5' 6.5) Wt 76.7 kg (169 lb) LMP 07/01/2020 (Approximate) SpO2 97% No BMI 26.87 kg/m General appearance: Well appearing, alert, in no acute distress, well-hydrated, well nourished. Skin: Skin color, texture, turgor normal, no suspicious rashes or lesions Head: Normocephalic, no masses, lesions, tenderness or abnormalities Eyes: Anicteric sclera. Pupils are equally round and reactive to light. Extraocular movements are intact. Ears: External ears normal, canals clear Nose/Sinuses: Nares normal, septum midline, mucosa normal, no drainage or sinus tenderness Oropharynx: Lips, mucosa, and tongue normal, teeth and gums normal, oropharynx normal Neck: Supple, no adenopathy; thyroid symmetric, normal size, no bruits Back: Normal exam Lungs: Lungs clear to auscultation. No wheezing, rhonchi, rales Heart: RRR without murmur, gallop, or rubs. No ectopy Abdomen: Normal abdominal exam, Abdomen soft, non-tender. Bowel sounds normal. No masses, organomegaly Extremities: No deformities, edema, skin discoloration, clubbing or cyanosis. Good capillary refill. Musculoskeletal: No joint swelling, deformity, or tenderness Peripheral pulses: Normal Neuro: Gait normal. Reflexes normal and symmetric. Sensation grossly intact. ASSESSMENT/PLAN: 1. Annual physical exam - ICD9: V70.0, ICD10: Z00.00 (primary diagnosis) - Counseled on healthy diet and regular exercise - Calcium intake with supplements or by diet of 1000 mg/day for under 50, 1200- 1500 mg/day for 50+ 2. Bilateral carpal tunnel syndrome - ICD9: 354.0, ICD10: G56.03 3. Headaches - ICD9: 784.0, ICD10: R51.9 - INSULIN LIK GR FAC I 4. Dyslipidemia - ICD9: 272.4, ICD10: E78.5 - good control - Continue current medication. Joleen Rice MD [facility] History of Present illness Narrative* Zaheer Velasquez RT(R) - 08/10/2020 8:50 AM EDT Radiology Service Progress Note PATIENT NAME: Dov Blackmon DATE OF SERVICE: August 10, 2020 TIME: 8:56 AM PATIENT IDENTITY VERIFICATION COMPLETED USING TWO (2) IDENTIFIERS: Name and Date of confirmedby patient verbally. FALL SCREENING: Has the patient had 2 falls in the last year or 1 fall with injury or currently using an Ambulatory Assistive Device (Walker, Cane, Wheelchair, Crutches, etc.)? No PATIENT GENDER DATA: Female. status: : No status: NO. PATIENT RELEVANT IMPLANT DATA REVIEWED: Not Applicable RADIOLOGY DEPARTMENT: General X-ray: Exam(s) Completed: Chest X-Ray PERIPHERAL IV DATA: Not applicable SIGNED BY: RT Zonia(R) August 10, 2020 8:56 AM [facility] Diagnosis Annual physical exam- Primary Routine general medical examination at a health care facility Bilateral carpal tunnel syndrome Carpal tunnel syndrome Headaches Dyslipidemia Other and unspecified hyperlipidemia documented in [facility]* Diagnosis Elevated growth hormone (GH) level- Primary Unspecified endocrine disorder documented in [facility]* Diagnosis Encounter for immunization- Primary Need for other specified prophylactic vaccination against single bacterial disease documented in this encounter [facility]* Diagnosis Onset Date Resolution Status Generalized anxiety disorder acute Encounter for routine gynecological examination noneactive [facility] Work Phone: Evaluation note* Diagnosis Encounter for screening mammogram for breast cancer documented in this encounter [facility]* Diagnosis Contact dermatitis, unspecified contact dermatitis type, unspecified trigger- Primary [facility] noteNo assessment information availableWOhio [facility] Work Phone: Evaluation note* Diagnosis Encounter for screening mammogram for breast cancer documented in this encounter [facility]* Diagnosis Intermittent chest pain Chest pain, unspecified Change in voice Other voice and resonance disorders Post-acute sequelae of COVID-19 (PASC) Parosmia Disturbances of sensation of smell and taste Anosmia Disturbances of sensation of smell and taste Arthralgia, unspecified joint Cold extremities [facility]* Diagnosis Annual physical exam- Primary Routine general medical examination at a health care facility Generalized anxiety disorder Major depressive disorder, single episode, in partial remission Major depressive disorder, single episode, in partial or unspecified remission Vitamin B12 deficiency Other B-complex deficiencies Weight gain Abnormal weight gain Fatigue, unspecified type Iron deficiency Iron deficiency anemia, unspecified LLQ pain Abdominal pain, left lower quadrant documented in [facility]* Diagnosis Encounter for screening mammogram for breast cancer documented in this encounter [facility] for referral (narrative)* Diagnostic Procedure Only (Routine) - Pending Review Specialty Diagnoses / Procedures Referred By Jesenia roman Referred To Contact [facility] Diagnoses Encounter for screening mammogram for breast cancer Procedures JG SCREENING SCREENING MAMMOGRAPHY BI 2-VIEW BREAST INC Joleen Valdez MD [address] [place] [address] [facility] [address] [place] [address] Referral ID Status Reason Start Date Expiration Date Visits Requested Visits Authorized [id number] Pending Review Auto-Generat ed Referral 08/26/2022 09/25/2023 1 1 [facility] for referral (narrative)* Diagnostic Procedure Only (Routine) - Pending Review Specialty Diagnoses / Procedures Referred By Jesenia roman Referred To Contact [facility] Diagnoses Encounter for screening mammogram for breast cancer Procedures JG SCREENING SCREENING MAMMOGRAPHY BI 2-VIEW BREAST INC Joleen Valdez MD [address] [place] [address] [facility] [address] [place] [address] Referral ID Status Reason Start Date Expiration Date Visits Requested Visits Authorized [id number] Pending Review Auto-Generat ed Referral 08/04/2023 09/02/2024 1 1 [facility] HospitalReason for referral (narrative)No reason for referral information availableEvansville [facility] Work Phone: Advance Directives No Advanced Directives Records FoundDocuments on File Type Date Recorded 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 Advance Directive(s) 09/13/2015 3:11 PM Documents on File Type Date Recorded 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 Advance Directive(s) 09/13/2015 3:11 PM Advance Directive Response Recorded Date/ Time Living Will No February 26, 2 020 2:04pm Power of Detention Sergeant No February 27, 2020 2:04pm Advance Directive Response Recorded Date/ Time Living Will No October 18 7:27pm Power of Detention Sergeant No October 18 023 7:27pm Reason for Referral Specialty Diagnoses / Procedures Referred By Jesenia roman Referred To Contact Endocrinology Diagnoses Elevated growth hormone (GH) level Procedures CONSULT TO ENDOCRINOLOGY OFFICE/OUTPATIENT [facility] 60-74 MINUTES Joleen Rice MD [address] [place] [address] Referral ID Status Reason Start Date Expiration Date Visits Requested Visits Authorized [id number] Authorized PCP Requested Referral 08/05/2021 08/05/2022 1 1 Chief Complaint and Reason for Visit Chief Complaint SCREENING Annual (PRESS BUCKER) Reason for Visit Generalized anxiety disorder Encounter for routine gynecological examination Chief Complaint RT ACHILLES TENDINIT IS/RX HERE Chief Complaint Admit Date SELF REFERRED [facility]MP [employer]LLY [employer]TON Ma y 2024 9:59am Chief Complaint Admit Date SELF REFERRED LUMP [employer]TON Ma y 2024 9:59am screening for breast cancer August 31 12:46pm Annual (PRESS BUCKER) August 31, 2024 1:21p m Reason for Visit Admit Date Umbilical hernia July 14, 2024 9:59a m ASCUS of cervix with negative high risk HPV August 31, 2024 1:21pm Generalized anxiety disorder August 31 025 1:21pm Encounter for routine gynecological exam ination August 31, 2024 1:21pm Family History No Family History Records Found Relationship Condition Age at Onset Recorded Date/T alessandro mother Arthritis Unknown Hypertension Unknown Cardiac disease Unknown sister Asthma Unknown father Malignant neoplasm of lung Unknown Summary Purpose Additional Source Comments Source Comments (unrecognize d section and content) In the event this informatio n is protected by the Federal Confidentiality of Alcohol and Drug Abuse Patient Records regulations: The Federal rules restrict any use of the information to criminally investigate or prosecute any alcohol or drug abuse patient.[facility] HospitalIn the event this information is protected by the Federal Confidentiality of Alcohol and Drug Abuse Patient Records regulations: The Federal rules restrict any use of the information to criminally investigate or prosecute any alcohol or drug abuse patient.[facility] HospitalIn the event this information is protected by the Federal Confidentiality of Alcohol and Drug Abuse Patient Records regulations: The Federal rules restrict any use of the information to criminally investigate or prosecute any alcohol or drug abuse patient.[facility] HospitalIn the event this information is protected by the Federal Confidentiality of Alcohol and Drug Abuse Patient Records regulations: The Federal rules restrict any use of the information to criminally investigate or prosecute any alcohol or drug abuse patient.[facility] HospitalIn the event this information is protected by the Federal Confidentiality of Alcohol and Drug Abuse Patient Records regulations: The Federal rules restrict any use of the information to criminally investigate or prosecute any alcohol or drug abuse patient.[facility] HospitalIn the event this information is protected by the Federal Confidentiality of Alcohol and Drug Abuse Patient Records regulations: The Federal rules restrict any use of the information to criminally investigate or prosecute any alcohol or drug abuse patient.[facility] HospitalIn the event this information is protected by the Federal Confidentiality of Alcohol and Drug Abuse Patient Records regulations: The Federal rules restrict any use of the information to criminally investigate or prosecute any alcohol or drug abuse patient.[facility] HospitalIn the event this information is protected by the Federal Confidentiality of Alcohol and Drug Abuse Patient Records regulations: The Federal rules restrict any use of the information to criminally investigate or prosecute any alcohol or drug abuse patient.[facility] HospitalIn the event this information is protected by the Federal Confidentiality of Alcohol and Drug Abuse Patient Records regulations: The Federal rules restrict any use of the information to criminally investigate or prosecute any alcohol or drug abuse patient.[facility] HospitalIn the event this information is protected by the Federal Confidentiality of Alcohol and Drug Abuse Patient Records regulations: The Federal rules restrict any use of the information to criminally investigate or prosecute any alcohol or drug abuse patient.[facility] HospitalIn the event this information is protected by the Federal Confidentiality of Alcohol and Drug Abuse Patient Records regulations: The Federal rules restrict any use of the information to criminally investigate or prosecute any alcohol or drug abuse patient.[facility] HospitalIn the event this information is protected by the Federal Confidentiality of Alcohol and Drug Abuse Patient Records regulations: The Federal rules restrict any use of the information to criminally investigate or prosecute any alcohol or drug abuse patient.[facility] HospitalIn the event this information is protected by the Federal Confidentiality of Alcohol and Drug Abuse Patient Records regulations: The Federal rules restrict any use of the information to criminally investigate or prosecute any alcohol or drug abuse patient.[facility] HospitalIn the event this information is protected by the Federal Confidentiality of Alcohol and Drug Abuse Patient Records regulations: The Federal rules restrict any use of the information to criminally investigate or prosecute any alcohol or drug abuse patient.[facility] Reason for Visit (unrecogniz ed section and content) Reason Comments Established Patient physical Reason Comments Results Reason Comments Rash Bilateral arms x1 we ek, started on L bicep Reason Comments Physical physical Care Teams (unrecognized sec tion and content) Purchasing Supervisor Relationship Specialty Start Date End Date Joleen Rice MD [address], [place] [id number] PCP - General Internal Medicine 08/19/20 Purchasing Supervisor Relationship Specialty Start Date End Date Joleen Rice MD [address], [place] [id number] PCP - General Internal Medicine 08/19/20 Purchasing Supervisor Relationship Specialty Start Date End Date Joleen Rice MD [address] [place] [address] PCP - General Internal Medicine 08/19/20 Purchasing Supervisor Relationship Specialty Start Date End Date Joleen Rice MD [address] [place] [address] PCP - General Internal Medicine 08/19/20 Team Status: Active Member Role Status Dates No Primary Care Physician Family Provider Active Dr. Joleen Rice MD Primary Care Provider Active Team Status: Inactive Member Role Status Dates Dr. Joleen Rice MD Primary Care Provider, Referring Provider Active Dr. Farideh Christian MD Attending Provider Active Team Status: Inactive Member Role Status Dates Dr. Joleen Rice MD Primary Care Provider Active Dr. Farideh Christian MD Attending Provider, Referr ing Provider Active Purchasing Supervisor Relationship Specialty Start Date End Date Joleen Rice MD [address] [place] [address] PCP - General Internal Medicine 08/19/20 Purchasing Supervisor Relationship Specialty Start Date End Date Joleen Rice MD [address] [place] [address] PCP - General Internal Medicine 08/19/20 Purchasing Supervisor Relationship Specialty Start Date End Date Joleen Rice MD [address] [place] [address] PCP - General Internal Medicine 08/19/20 Team Status: Active Member Role Status Dates No Primary Care Physician Family Provider Active No Primary Care Physician Primary Care Provider Active Team Status: Inactive Member Role Status Dates No Primary Care Physician Primary Care Provider Active Dr. Pato Peña DPM Attending Provider, Referri ng Provider Active Purchasing Supervisor Relationship Specialty Start Date End Date Joleen Rice MD [address] [place] [address] PCP - General Internal Medicine 08/19/20 Purchasing Supervisor Relationship Specialty Start Date End Date Joleen Rice MD [address] [facility] [place], [place] [id number] PCP - General Internal Medicine 08/19/20 Kristal Cueva PA-C [address] [place] [address] Injection Molding Machine Tender Family Medicine 02/06/24 Lisa Hoang APRN.ASSISTANT RESEARCH SCIENTIST [address] [facility] [place] [address] Injection Molding Machine Tender Internal Medicine 02/06/24 Regine Lyman PA-C [address] [facility] [place] [place] [address] Injection Molding Machine Tender Family Medicine 02/06/24 Purchasing Supervisor Relationship Specialty Start Date End Date Joleen Rice MD [address] [facility] [place] [place] [address] PCP - General Internal Medicine 08/19/20 Lisa Hoang APRN.ASSISTANT RESEARCH SCIENTIST [address] [facility] [place] [address] Injection Molding Machine Tender Internal Medicine 02/06/24 Team Status: Active Member Role Status Dates Dr. Joleen Rice MD Primary Care Provider Active Team Status: Inactive Member Role Status Dates Dr. Joleen Rice MD Primary Care Provider Active Start: July 14, 2024 End: July 14, 2024 Dr. Joleen Rice MD Referring Provider Active Start: July 14, 2024 End: July 14, 2024 Dr. Chris Coats MD Attending Provider Active Start: July 14, 2024 End: July 14, 2024 Purchasing Supervisor Relationship Specialty Start Date End Date Joleen Rice MD [address] [facility] [place] [place] [address] PCP - General Internal Medicine 08/19/20 Older, LING GonzalezN.ASSISTANT RESEARCH SCIENTIST [address] [facility] [place] [address] Injection Molding Machine Tender Internal Medicine 02/06/24 Purchasing Supervisor Relationship Specialty Start Date End Date Joleen Rice MD [address] [place] [address] PCP - General Internal Medicine 08/19/20 Older, Lisa AUTOMATED MANUFACTURING INSTRUCTOR.ASSISTANT RESEARCH SCIENTIST [address] [facility] [place] [address] Injection Molding Machine Tender Internal Medicine 02/06/24 Team Status: Active Member Role/Relationship Status Dates Dr. Joleen Rice MD Primary Care Provider Active Team Status: Inactive Member Role/Relationship Status Dates Dr. Joleen Rice MD Primary Care Provider Active Start: July 14, 2024 End: July 14, 2024 Dr. Joleen Rice MD Referring Provider Active Start: July 14, 2024 End: July 14, 2024 Dr. Chris Coats MD Attending Provider Active Start: July 14, 2024 End: July 14, 2024 Team Status: Active Member Role/Relationship Status Dates Dr. Farideh Christian MD Attending Provider Active Start: August 31, 2024 Dr. Farideh Christian MD Referring Provider Active Start: August 31, 2024 Dr. Joleen Rcie MD Primary Care Provider Active Start: August 31, 2024 Team Status: Inactive Member Role/Relationship Status Dates No Primary Care Physician Referring Provider Active Start: August 31, 2024 End: August 31, 2024 Dr. Farideh Christian MD Attending Provider Active Start: August 31, 2024 End: August 31, 2024 Dr. Joleen Rice MD Primary Care Provider Active Start: August 31, 2024 End: August 31, 2024 Goals (unrecognized section and content) Goals may be documented in a n alternate sectionGoals may be documented in an alternate sectionGoals may be documented in an alternate sectionGoals may be documented in an alternate section INFORMATION SOURCE (unrecogn ized section and content) DATE CREATED AUTHOR 08/05/2024 [facility] DATE CREATED AUTHOR CAROLYN PETERS 08/31/2024 [facility] FOR RECORDS PERTAINING TO PATIENTS WHO ARE OR HAVE BEEN ENROLLED IN A CHEMICAL DEPENDENCY/SUBSTANCEABUSE PROGRAM, SOME INFORMATION MAY BE OMITTED. This clinical summary was aggregated from multiple sources. Caution should be exercised in using it in the provision of clinical care. This summary normalizes information from multiple sources, and as a consequence, information in this document may materially change the coding, format and clinical context of patient data. In addition, data may be omitted in some cases. CLINICAL DECISIONS SHOULD BE BASED ON THE PRIMARY CLINICAL RECORDS. [employer] provides no warranty or guarantee of the accuracy or completeness of information in this document.
--- OUTSIDE RECORDS SUMMARY | 2024-08-31 22:51 | XMS RPT_ITS | CCD ---
Author Organization [facility] Care Team Providers Care Ice Guard Skating Rink Name Role Phone Seven NICOLE, Joleen Primary Care Provider Dr. Joleen Rice Primary Care Provider Dr. Joleen Rice Referring Provider Dr. 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 Joleen Rice MD Primary Care Provider Dr. Joleen Rice MD Referring Provider Dr. Chris Coats MD Attending Provider [phone] GANTA, JOLEEN Primary Care Unavailable GANTA, JOLEEN Attending Unavailable GANTA, JOLEEN Primary Care Unavailable GANTA, JOLEEN Referring Unavailable GANTA, JOLEEN Primary Care Unavailable GANTA, JOLEEN Referring Unavailable GANTA, JOLEEN Primary Care Unavailable Dr. Farideh Christian MD Attending Provider Dr. Farideh Christian MD Referring Provider Care Physician, No Primary Referring Provider Un [...] [AMOXICILLIN] Drug Allergy 8 Rash, Hives, Swelling [facility] (3 sources) Penicillins; Translations: [PENICILLINS] Propensity to adverse reactions 8 Rash, Hives, Swelling [facility] (8 sources) Penicillins Propensity to adverse reactions 8 Rash, Hives, Swelling [facility] (4 sources) Penicillins Allergy to substance 3 Rash [facility] (4 sources) Penicillins Propensity to adverse reactions 8 Rash, Hives, Swelling [facility] (1 source) Penicillins Drug allergy (disorder) 5 [facility] Repository Medications Current Medications Medication Drug Class(es) [...] on above: Take one(1) tablet d aily. Hanna-3 Fatty Acids (2 sources) Start: 07-15-2021 take 1000 mg by mouth once daily Hanna-3 Fatty Acids Active 1000 MG PO DAILY July 14, 2021 11:00pm Start: 07-15-2021 take 1000 mg by mouth once allen ly Hanna-3 Fatty Acids Active 1000 MG PO DAILY July 15, 2021 12:00am Hanna-3 Fatty Acids 1,000 mg capsule (2 sources) Start: 07-15-2021 take 1 capsule by mouth once daily Hanna-3 Fatty Acids 1,000 mg capsule Active 1000 mg PO DAILY July 15, 2021 12:00am Prenat.Vits,Annel,Min-Ir on-Folic ( Vitamin) tablet (4 sources) Start: 03-03-2017 Prenat.Vits,Ca l,Min-Iro n-Folic ( Vitamin) tablet Active 1 {tbl} PO daily March 03, 2017 1:00am SUPPLEMENT Start: 03-03-2017 Prenat.Vits,Ca l,Phw-Arcm-Spqoe ( Vitamin) tablet Active 1 {tbl} PO daily March 03, 2017 1:00am Start: 03-03-2017 take 1 tablet by reema th once daily Prenat.Vits,Annel,Gzc-Mlhs-Tjcgu ( Vitamin) tablet Active 1 TABLET PO daily March 03, 2017 12:00am Start: 03-03-2017 take 1 tablet by reema th once daily Prenat.Vits,Annel,Tuq-Fzbk-Fiaod ( Vitamin) tablet Active 1 TABLET PO [...] 1:00am September 30, 2017 1:56pm supplement Ca-D3-Mag Nm-Zdpj-Zge-Dixon-B or (Calcium 600-D3 Plus (Mag-Zinc)) 600 mg calcium- 800 unit-50 mg tablet (4 sources) Start: 02-01-2020 End: 07-15-2021 Ca-D3-Mag Bq-Eokh-Vpa-Dixon-B or (Calcium 600-D3 Plus (Mag-Zinc)) 600 mg calcium- 800 unit-50 mg tablet Discontinued 1 {tbl} PO DAILY February 01, 2020 1:00am July 15, 2021 3:46pm COVID Start: 02-01-2020 End: 07-15-2021 Ca-D3-Mag Ls-Tjkj-Ksd-Dixon-B or (Calcium 600-D3 Plus (Mag-Zinc)) 600 mg calcium- 800 unit-50 mg tablet Discontinued 1 {tbl} PO DAILY February 01, 2020 1:00am July 15, 2021 3:46pm Start: 02-01-2020 End: 07-15-2021 take 1 tablet by mouth once daily Ca-D3-Mag Su-Jdnk-Oyg-Dixon-Bor (Calcium 600-D3 Plus (Mag-Zinc)) 600 mg calcium- 800 unit-50 mg tablet Discontinued 1 TABLET PO DAILY February 01, 2020 12:00am July 15, 2021 2:46pm Start: 02-01-2020 End: 07-15-2021 take 1 tablet by mouth once daily Ca-D3-Mag Yf-Emsr-Osi-Dixon-Bor (Calcium 600-D3 Plus (Mag-Zinc)) 600 mg calcium- [...] Test Name Value Interpretation Reference Range Facility Caseworker Intake Office Visit Reporton 08-31-2024 Caseworker Intake Office Visit Report [facility] [address] [place] [address], [address] [place] [address] OFFICE VISIT Date of Service: 08/31/24 MR#: [id number] Acct: [id number] Name: DOV BLACKMON Rep #: [id number] : 1980 Provider: Dr. 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 Is patient in pain?: No [...] menopausal: No Patient : No : No [facility] Medical History (Updated 08/31/24 @ 13:56 [...] 10oz Female less than 24 hours epidural [facility] Unknown 11/01/2012 Delmont 39 live - full term 8lbs 6oz Male less t truong 24 hours epidural [facility] Unknown 08/30/2017 Deyanira 37 live - full term 7 lbs Female [address] [facility] Dedrickalexander Misha 02/27/20 Dileep 40 live - full term Male [facility] Proko p Delivery Date: 02/27/20 Last Updated by: Nyla [facility]EDO [facility] Encounter for routine gynecological examination Details: DOV [...] which has (more content not included)... Normal [facility] SCRN MAMM (CAD)W/LINDEN BILATo n 08-31-2024 SCRN MAMM (CAD)W/LINDEN BILAT [facility] [address] [place] [address] [id number] SCRN MAMM (CAD)W/LINDEN BILAT MR#: [id number] Acct: [id number] Name: DOV BLACKMON Rep #: [id number] : 1980 F 44 From: Rosa Coello MD PCP: Dr. Joleen Rice MD Status: [facility] Study: SCRN MAMM (CAD)W/LINDEN BILAT Date of Exam: 05/23 Exam# [id number] Ordering Dr: Farideh Christian EXAM: SCRN MAMM [...] be mailed to the patient. Reading Location: [id number] CC: Dr. Joleen Rice MD; Dr. 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 [address] [place] [address] OFFICE VISIT Date of Service: 07/14/24 MR#: [id number] Acct: [id number] Name: DVO BLACKMON Rep #: [id number] : 1980 Provider: Dr. Chris gonzalez MD Age/Sex: 43/F Location: [facility] Status: Signed Intake Vital Signs [...] to ausc (more content not included)... Normal [facility] CBC W Auto Differential pane l (Bld)on 06-22-2024 Basophils (Bld) [#/Vol] 10*3/uL Normal <0.11 [facility] Comment on above: Order Comment: Speci men Type: BLOOD SPECIMENOrdering Facility: [facility] Address: [address] [place] [address] Performed By: #### 5 7021-8 ####[facility] [id number] [place] [id number] [place] Basophils/100 WBC (Bld) 0.4 % Normal [facility] Comment on above: Order Comment: Speci men Type: BLOOD SPECIMENOrdering Facility: [facility] Address: [address] [place] [address] Performed By: #### 5 7021-8 ####[facility] THELMAWYILIA [id number] [place] [address] [place] Differential cell count method Nom (Bld) Auto Normal [facility] Comment on above: Order Comment: Speci men Type: BLOOD SPECIMENOrdering Facility: [facility] Address: [address] [place] [address] Performed By: #### 5 7021-8 ####[facility]EL[facility]CL[facility] [id number] [place] [address] [place] Eosinophils (Bld) [#/Vol] 0.20 10*3/uL Normal <0.46 [facility] Comment on above: Order Comment: Speci men Type: BLOOD SPECIMENOrdering Facility: [facility] Address: [address] [place] [address] Performed By: #### 5 7021-8 ####[facility] [id number] [place] [address] [place] Eosinophils/100 WBC (Bld) 3.7 % Normal [facility] Comment on above: Order Comment: Speci men Type: BLOOD SPECIMENOrdering Facility: [facility] Address: [address] [place] [address] Performed By: #### 5 7021-8 ####[facility]CL[facility] [id number] [place] [address] [place] Erythrocyte distribution width (RBC) [Ratio] 12.2 % Normal 11.5-15.0 [facility] Comment on above: Order Comment: Speci men Type: BLOOD SPECIMENOrdering Facility: [facility] Address: [address] [place] [address] Performed By: #### 5 7021-8 ####[facility] [id number] [place] [address] [place] Hematocrit (Bld) [Volume fraction] 39.6 % Normal 36.0-46.0 [facility] Comment on above: Order Comment: Speci men Type: BLOOD SPECIMENOrdering Facility: [facility] Address: [address] [place] [address] Performed By: #### 5 7021-8 ####[facility] [id number] [place] [address] [place] Hemoglobin (Bld) [Mass/Vol] 13.3 g/dL Normal 11.5-15.5 [facility] Comment on above: Order Comment: Speci men Type: BLOOD SPECIMENOrdering Facility: [facility] Address: [address] [place] [address] Performed By: #### 5 7021-8 ####[facility] [id number] [place] [address] [place] Immature granulocytes (Bld) [#/Vol] 10*3/uL Normal <0.10 [facility] Comment on above: Order Comment: Speci men Type: BLOOD SPECIMENOrdering Facility: [facility] Address: [address] [place] [address] Performed By: #### 5 7021-8 ####[facility]ENTERKEIRAA [id number] [place] [address] [place] Immature granulocytes/100 WBC (Bld) 0.2 % Normal [facility] Comment on above: Order Comment: Speci men Type: BLOOD SPECIMENOrdering Facility: [facility] Address: [address] [place] [address] Performed By: #### 5 7021-8 ####[facility]CL[facility] [id number] [place] [address] [place] Lymphocytes (Bld) [#/Vol] 1.61 10*3/uL Normal 1.00-4.00 [facility] Comment on above: Order Comment: Speci men Type: BLOOD SPECIMENOrdering Facility: [facility] Address: [address] [place] [address] Performed By: #### 5 7021-8 ####[facility] [id number] [place] [address] [place] Lymphocytes/100 WBC (Bld) 30.0 % Normal [facility] Comment on above: Order Comment: Speci men Type: BLOOD SPECIMENOrdering Facility: [facility] Address: [address] [place] [address] Performed By: #### 5 7021-8 ####[facility] [id number] [place] [address] [place] MCH (RBC) [Entitic mass] 29.2 pg Normal 26.0-34.0 [facility] Comment on above: Order Comment: Speci men Type: BLOOD SPECIMENOrdering Facility: [facility] Address: [address] [place] [address] Performed By: #### 5 7021-8 ####[facility] [id number] [place] [address] [place] MCHC (RBC) [Mass/Vol] 33.6 g/dL Normal 30.5-36.0 [facility] Comment on above: Order Comment: Speci men Type: BLOOD SPECIMENOrdering Facility: [facility] Address: [address] [place] [address] Performed By: #### 5 7021-8 ####[facility] [id number] [place] [address] [place] MCV (RBC) [Entitic vol] 86.8 fL Normal 80.0-100.0 [facility] Comment on above: Order Comment: Speci men Type: BLOOD SPECIMENOrdering Facility: [facility] Address: [address] [place] [address] Performed By: #### 5 7021-8 ####[facility] MILLTOWNCLIA [id number] [place] [address] [place] Monocytes (Bld) [#/Vol] 0.47 10*3/uL Normal <0.87 [facility] Comment on above: Order Comment: Speci men Type: BLOOD SPECIMENOrdering Facility: [facility] Address: [address] [place] [address] Performed By: #### 5 7021-8 ####[facility] MILLTOWNCLIA [id number] [place] [address] [place] Monocytes/100 WBC (Bld) 8.8 % Normal [facility] Comment on above: Order Comment: Speci men Type: BLOOD SPECIMENOrdering Facility: [facility] Address: [address] [place] [address] Performed By: #### 5 7021-8 ####[facility] HOSPITALWNCLIA [id number] [place] [address] [place] Neutrophils (Bld) [#/Vol] 3.06 10*3/uL Normal 1.45-7.50 [facility] Comment on above: Order Comment: Speci men Type: BLOOD SPECIMENOrdering Facility: [facility] Address: [address] [place] [address] Performed By: #### 5 7021-8 ####[facility] MILLTOWNCLIA [id number] [place] [address] [place] Neutrophils/100 WBC (Bld) 56.9 % Normal [facility] Comment on above: Order Comment: Speci men Type: BLOOD SPECIMENOrdering Facility: [facility] Address: [address] [place] [address] Performed By: #### 5 7021-8 ####[facility] MILLTOWNCLIA [id number] [place] [address] [place] Nucleated RBC (Bld) [#/Vol] 10*3/uL Normal <0.01 [facility] Comment on above: Order Comment: Speci men Type: BLOOD SPECIMENOrdering Facility: [facility] Address: [address] [place] [address] Performed By: #### 5 7021-8 ####[facility] CHAPELYIKEIRA [id number] [place] [address] [place] Nucleated RBC/100 WBC (Bld) [Ratio] 0.0 /100 WBC Normal [facility] Comment on above: Order Comment: Speci men Type: BLOOD SPECIMENOrdering Facility: [facility] Address: [address] [place] [address] Performed By: #### 5 7021-8 ####[facility] CHAPELNCMary [id number] [place] [address] [place] Platelet mean volume (Bld) [Entitic vol] 8.9 fL Low 9.0-12.7 [facility] Comment on above: Order Comment: Speci men Type: BLOOD SPECIMENOrdering Facility: [facility] Address: [address] [place] [address] Performed By: #### 5 7021-8 ####[facility] CHAPELQAMARMary [id number] [place] [address] [place] Platelets (Bld) [#/Vol] 194 10*3/uL Normal 150-400 [facility] Comment on above: Order Comment: Speci men Type: BLOOD SPECIMENOrdering Facility: [facility] Address: [address] [place] [address] Performed By: #### 5 7021-8 ####[facility]ELNCLIA [id number] [place] [address] [place] RBC (Bld) [#/Vol] 4.56 10*6/uL Normal 3.90-5.20 [facility] Comment on above: Order Comment: Speci men Type: BLOOD SPECIMENOrdering Facility: [facility] Address: [address] [place] [address] Performed By: #### 5 7021-8 ####[facility]ELNCBRIGH[facility] [id number] [place] [address] [place] WBC (Bld) [#/Vol] 5.37 10*3/uL Normal 3.70-11.00 [facility] Comment on above: Order Comment: Speci men Type: BLOOD SPECIMENOrdering Facility: [facility] Address: [address] [place] [address] Performed By: #### 5 7021-8 ####[facility] [id number] [place] [address] [place] Comprehensive metabolic 2000 panelon 06-22-2024 Albumin [Mass/Vol] 4.5 g/dL Normal 3.9-4.9 [facility] Comment on above: Order Comment: Speci men Type: BLOOD SPECIMEN [facility] Address: [address] [place] [address] Performed By: #### 2 4323-8 #### [facility] CLIA [id number] [address] [place] [address] [place] ALP [Catalytic activity/Vol] 48 U/L Normal 34-123 [facility] Comment on above: Order Comment: Speci men Type: BLOOD SPECIMEN [facility] Address: [address] [place] [address] Performed By: #### 2 4323-8 #### [facility] CLIA [id number] [address] [place] [address] [place] ALT [Catalytic activity/Vol] 15 U/L Normal 7-38 [facility] Comment on above: Order Comment: Speci men Type: BLOOD SPECIMEN [facility] Address: [address] [place] [address] Performed By: #### 2 4323-8 #### [facility] CLIA [id number] [address] [place] [address] [place] Anion gap [Moles/Vol] 9 mmol/L Normal 8-15 [facility] Comment on above: Order Comment: Speci men Type: BLOOD SPECIMEN [facility] Address: [address] [place] [address] Performed By: #### 2 4323-8 #### [facility] CLIA [id number] [address] [place] [address] [place] AST [Catalytic activity/Vol] 15 U/L Normal 13-35 [facility] Comment on above: Order Comment: Speci men Type: BLOOD SPECIMEN [facility] Address: [address] [place] [address] Performed By: #### 2 4323-8 #### [facility] CLIA [id number] [address] [place] [address] [place] Bilirubin [Mass/Vol] 0.5 mg/dL Normal 0.2-1.3 [facility] Comment on above: Order Comment: Speci men Type: BLOOD SPECIMEN [facility] Address: [address] [place] [address] Performed By: #### 2 4323-8 #### [facility] CLIA [id number] [address] [place] [address] [place] Calcium [Mass/Vol] 9.7 mg/dL Normal 8.5-10.2 [facility] Comment on above: Order Comment: Speci men Type: BLOOD SPECIMEN [facility] Address: [address] [place] [address] Performed By: #### 2 4323-8 #### [facility] CLIA [id number] [address] [place] [address] [place] Chloride [Moles/Vol] 101 mmol/L Normal 98-107 [facility] Comment on above: Order Comment: Speci men Type: BLOOD SPECIMEN [facility] Address: [address] [place] [address] Performed By: #### 2 4323-8 #### [facility] CLIA [id number] [address] [place] [address] [place] CO2 [Moles/Vol] 27 mmol/L Normal 22-30 [facility] Comment on above: Order Comment: Speci men Type: BLOOD SPECIMEN [facility] Address: [address] [place] [address] Performed By: #### 2 4323-8 #### [facility] CLIA [id number] [address] [place] [address] [place] Creatinine [Mass/Vol] 0.85 mg/dL Normal 0.58-0.96 [facility] Comment on above: Order Comment: Speci men Type: BLOOD SPECIMEN [facility] Address: [address] [place] [address] Performed By: #### 2 4323-8 #### [facility] CLIA [id number] [address] [place] [address] [facility] [place] Creatinine and Glomerular filtration rate.predicted panel (S/P/Bld) 88 mL/min/1.73m??? Normal >=60 [facility] Comment on above: Order Comment: Speci men Type: BLOOD SPECIMEN [facility] Address: [address] [place] [address] Result Comment: Dianelys mated Glomerular Filtration Rate [...] GFR. Performed By: #### 2 4323-8 #### [facility] [id number] [address] [place] [address] [place] Glucose [Mass/Vol] 97 mg/dL Normal 74-99 [facility] Comment on above: Order Comment: Adele daniel Type: BLOOD SPECIMEN [facility] Address: [address] [place] [address] Result Comment: The [place] Diabetes Association (ADA) provides guidance for cutoff [...] Standards of Medical Care in Diabetes 2016, [place] [employer]. Diabetes Care. 2016.39(Suppl 1). Performed By: #### 2 4323-8 #### [facility] [id number] [address] [place] [address] [place] Potassium [Moles/Vol] 3.8 mmol/L Normal 3.7-5.1 [facility] Comment on above: Order Comment: Adele daniel Type: BLOOD SPECIMEN [facility] Address: [address] [place] [address] Performed By: #### 2 4323-8 #### [facility] [id number] [address] [place] [address] [place] Protein [Mass/Vol] 7.6 g/dL Normal 6.3-8.0 [facility] Comment on above: Order Comment: Adele daniel Type: BLOOD SPECIMEN [facility] Address: [address] [place] [address] Performed By: #### 2 4323-8 #### [facility] CLIA [id number] [address] [place] [address] [place] Sodium [Moles/Vol] 137 mmol/L Normal 136-144 [facility] Comment on above: Order Comment: Speci men Type: BLOOD SPECIMEN [facility] Address: [address] [place] [address] Performed By: #### 2 4323-8 #### [facility] CLIA [id number] [address] [place] [address] [place] Urea nitrogen [Mass/Vol] 14 mg/dL Normal 7-21 [facility] Comment on above: Order Comment: Speci men Type: BLOOD SPECIMEN [facility] Address: [address] [place] [address] Performed By: #### 2 4323-8 #### [facility] [id number] [address] [place] [address] [place] Ferritin SerPl-ncon 2024 Ferritin [Mass/Vol] 46.0 ng/mL Normal 14.7-205.1 [facility] Comment on above: Order Comment: Speci men Type: BLOOD SPECIMEN [facility] Address: [address] [place] [address] Performed By: #### 3 016-3, 91348-8, 2276-4 #### [facility] CLIA [id number] [address] [place] [address] [place] #### 59455-0 #### [facility] CLIA [id number] [address] [place] [address] [place] [facility] CLIA [id number] [address] [place] [address] [place] Iron and Iron binding capaci ty panelon 06-22-2024 Iron [Mass/Vol] 107 ug/dL Normal 41-186 [facility] Comment on above: Order Comment: Speci men Type: BLOOD SPECIMEN [facility] Address: [address] [place] [address] Performed By: #### 3 016-3, 46585-8, 2275-05 #### [facility] CLIA [id number] [address] [place] [address] [place] #### 93721-0 #### [facility] CLIA [id number] [address] [place] [address] [place] [facility] [id number] [place] [address] [place] Iron binding capacity [Mass/Vol] 323 ug/dL Normal 232-386 [facility] Comment on above: Order Comment: Speci men Type: BLOOD SPECIMEN [facility] Address: [address] [place] [address] Performed By: #### 3 016-3, 60574-8, 2275-05 #### [facility] CLIA [id number] [address] [place] [address] [place] #### 89163-1 #### [facility] CLIA [id number] [address] [place] [address] [place] [facility] CLIA [id number] [address] [place] [address] [place] Iron/TIBC [Molar ratio] 33.1 % Normal 15.0-57.0 [facility] Comment on above: Order Comment: Speci men Type: BLOOD SPECIMEN Ordering Facility: [facility] Address: [address] [place] [address] Performed By: #### 3 016-3, 28703-5, 2275-05 #### [facility] CLIA [id number] [address] [place] [address] [place] #### 51443-6 #### [facility] CLIA [id number] [address] [place] [address] [place] [facility] CLIA [id number] [address] [place] [address] [place] Lipid 1996 panelon 5 Cholesterol [Mass/Vol] 265 mg/dL High <200 [facility] Comment on above: Order Comment: Speci men Type: BLOOD SPECIMEN Ordering Facility: [facility] Address: [address] [place] [address] Result Comment: <200 mg/dL, Desirable 200-239 mg/dL, Borderline high >239 mg/dL, High Performed By: #### 3 016-3, 97570-2, 2275-05 #### [facility] CLIA [id number] [address] [place] [address] [place] #### 15773-1 #### [facility] CLIA [id number] [address] [place] [address] [place] [facility] CLIA [id number] [address] [place] [address] [place] Cholesterol in HDL [Mass/Vol] 72 mg/dL Normal >39 [facility] Comment on above: Order Comment: Speci men Type: BLOOD SPECIMEN Ordering Facility: [facility] Address: [address] [place] [address] Result Comment: 40-5 9 mg/dL, Acceptable >59 mg/dL, High: Negative risk factor for coronary heart disease <40 mg/dL, Low: Positive risk factor for coronary heart disease Performed By: #### 3 016-3, 20606-6, 2275-05 #### [facility] CLIA [id number] [address] [place] [address] [place] #### 19689-4 #### [facility] CLIA [id number] [address] [place], [place] [address]IA [id number] [address] [place] [address] Cholesterol in LDL [Mass/Vol] 176 mg/dL High <100 [facility] Comment on above: Order Comment: Speci men Type: BLOOD SPECIMEN Ordering Facility: [facility] Address: [address] [place] [address] Result Comment: <100 mg/dL, Optimal 100-129 mg/dL, Near optimal/above optimal 130-159 mg/dL, Borderline high 160-189 mg/dL, High >189 mg/dL, Very high Secondary prevention optimal LDL Cholesterol levels are recommended to be <70 mg/dL LDL cholesterol is calculated using the Barber-NIH equation. Performed By: #### 3 016-3, 98333-6, 2275-4 #### [facility] CLIA [id number] [address] [place] [address] #### 71640-0 #### [facility] CLIA [id number] [address] [place] [address] [place] [facility] [id number] [address] [place] [address] Cholesterol in LDL/Cholesterol in HDL [Mass ratio] 2.44 {ratio} Normal <2.54 [facility] Comment on above: Order Comment: Speci men Type: BLOOD SPECIMEN Ordering Facility: [facility] Address: [address] [place] [address] Result Comment: Refe chrissie: 1. National Cholesterol Education Program ATP III Guideline At-A-Glance Quick Desk Reference: National Heart, Lung, and Blood [place]. National Institutes of Health. 2001: NIH Publication No. 01-3305. 2. An International Atherosclerosis Society position paper: global recommendations for the management of dyslipidemia: executive summary, Atherosclerosis. 2014: 232(2):410-413. Performed By: #### 3 016-3, 13588-0, 2275-05 #### [facility] CLIA [id number] [address] [place] [address] [place] #### 75457-0 #### [facility] CLIA [id number] [address] [place] [id number] [place] [facility] CLIA [id number] [address] [place] [address] [place] Cholesterol in VLDL [Mass/Vol] 19 mg/dL Normal <30 [facility] Comment on above: Order Comment: Speci men Type: BLOOD SPECIMEN Ordering Facility: [facility] Address: [address] [place] [address] Performed By: #### 3 016-3, 54189-1, 2275-05 #### [facility] CLIA [id number] [address] [place] [address] [place] #### 16008-1 #### [facility] CLIA [id number] [address] [place] [address] [place] [facility] [id number] [place] [address] [place] Cholesterol non HDL [Mass/Vol] 193 mg/dL High <130 [facility] Comment on above: Order Comment: Speci men Type: BLOOD SPECIMEN Ordering Facility: [facility] Address: [address] [place] [address] Result Comment: <130 mg/dL, Optimal 130-159 mg/dL, Near optimal/above optimal 160-189 mg/dL, Borderline high 190-219 mg/dL, High >219 mg/dL, Very high Secondary prevention optimal non HDL Cholesterol levels are recommended to be <100 mg/dL Performed By: #### 3 016-3, 05591-7, 2275-05 #### [facility] CLIA [id number] [address] [place] [address] [place] #### 68131-8 #### [facility] CLIA [id number] [facility] [place] [id number] [place] [facility] CLIA [id number] [address] [place] [address] [place] Cholesterol.total/Ch olesterol in HDL [Mass ratio] 3.68 {ratio} Normal <5.10 [facility] Comment on above: Order Comment: Speci men Type: BLOOD SPECIMEN Ordering Facility: [facility] Address: [address] [place], [place] [address] Performed By: #### 3 016-3, 58368-8, 2275-05 #### [facility] CLIA [id number] [address] [place] [address] [place] #### 87864-5 #### [facility] CLIA [id number] [address] [place] [address] [place] [facility] CLIA [id number] [address] [place] [address] [place] FASTING TIME 12 hrs Normal [facility] Comment on above: Order Comment: Speci men Type: BLOOD SPECIMEN Ordering Facility: [facility] Address: [address] [place], [place] [address] Performed By: #### 3 016-3, 58209-1, 2275-05 #### [facility] CLIA [id number] [address] [place], [place] [address] [place] #### 40693-5 #### [facility] CLIA [id number] [address] [place], [place] [address] [place] [facility] CLIA [id number] [address] [place] [address] [place] Triglyceride [Mass/Vol] 98 mg/dL Normal <150 [facility] Comment on above: Order Comment: Speci men Type: BLOOD SPECIMEN Ordering Facility: [facility] Address: [address] [place] [address] Result Comment: <150 mg/dL, Normal 150-199 mg/dL, Borderline high 200-499 mg/dL, High >499 mg/dL, Very high Performed By: #### 3 016-3, 52826-2, 2275-05 #### [facility] CLIA [id number] [address] [place] [address] #### 85101-9 #### [facility] CLIA [id number] [address] [place] [address] [place] [facility] CLIA [id number] [address] [place] [address] [place] TSH SerPl-aCncon 06-22-2024 TSH Qn 1.870 m[IU]/L Normal 0.270-4.200 [facility] Comment on above: Order Comment: Adele daniel Type: BLOOD SPECIMEN Ordering Facility: [facility] Address: [address] [place] [address] Result Comment: If t he patient is , TSH reference range varies by gestational period: First Trimester (weeks 9-12): 0.180-2.990 mIU/L Second Trimester: 0.110-3.980 mIU/L Third Trimester: 0.480-4.710 mIU/L Cl Wall et al. A Practical Approach for the Verifications and Determination of Site- and Trimester-Specific Reference Intervals for Thyroid Function tests in . Thyroid, 2019:29:3:412-420. Domenico E, et al. 2017 Guidelines of the [place] Thyroid Association for the Diagnosis and Management of Thyroid Disease during and the . Thyroid, 2017:27:3:315-389. Performed By: #### 3 016-3, 75640-4, 2275-05 #### [facility] CLIA [id number] [address] [place] [address] [place] #### 78173-8 #### [facility] CLIA [id number] [address] [place] [facility] CLIA [id number] [address] [place] [id number] [place] [address] STATES OF [facility] FEMALE PELVIS TRANSABD LT Don [...] of the female pelvis. Specifically, no torsion. Crop Production Advisor: PSCB Transcribe Date/Time: Jun 24 2024 1:47P Dictated by : DANNIELLE PETERSON MD This examination was interpreted and the report reviewed and electronically signed by: DANNIELLE PETERSON MD on Jun 24 2024 1:49PM EST [id number] Normal [facility] FEMALE PELVIS TRANSVAGon 06-22-2024 [place] FEMALE PELVIS [...] of the female pelvis. Specifically, no torsion. Crop Production Advisor[facility] Transcribe Date/Time: Jun 24 2024 1:47P Dictated by : DANNIELLE PETERSON MD This examination was interpreted and the report reviewed and electronically signed by: DANNIELLE PETERSON MD on Jun 24 2024 1:49PM EST [id number] Normal [facility] Cobalamin (Vitamin B12) [Mass/Vol] 515 pg/mL Normal 232-1245 [facility] Comment on above: Order Comment: Speci men Type: BLOOD SPECIMEN Ordering Facility: [facility] Address: [address] [place] [address] Performed By: #### 2 132-9 #### [facility] CLIA [id number] [address] [place] [address] [place] CNOVon 06-15-2024 CNOV Office Visit (INTMWS ) DOV BLACKMON ([id number]) 1980 F Date Time Provider Department 06/15/24 [...] of Effexor and BuSpar. - Follow-up with OB-HAND WRAPPER OPERATOR in a couple of months to reassess medication efficacy and dosage. - Provided support and counseling during the visit, acknowledging the patient's current life stressors. Voice recognition software was used to compose this office note. Please excuse any unintended typographical errors. Recording using [employer] software for draft documentation of the visit was discussed with the patient/authorized leather goods sales representative; all questions welcomed and answered. Pat (more content not included)... Normal [facility] XR Chest PA and Lateralon IMPRESSION: Unremarkable exam with no acute radiographic abnormality. Crop Production Advisor: GREGORIO Transcribe Date/Time: Aug 10 2020 9:45A Dictated by : CHELY GRANDE MD This examination was interpreted and the report reviewed and electronically signed by: CHELY GRANDE MD on Aug 10 2020 9:46AM [facility] DIVISION OF RADIOLOGY * * *Final Report* [...] soft tissues: Unremarkable. DIVISION OF RADIOLOGY Provider, [facility] Adilson Yancey - 08/10/2020 * * [...] Unremarkable exam with no acute radiographic abnormality. Crop Production Advisor: PSCB Transcribe Date/Time: Aug 10 2020 9:45A Dictated by : CHELY GRANDE MD This examination was interpreted and the report reviewed and electronically signed by: CHELY GRANDE MD on Aug 10 2020 9:46AM EST [facility] Radiology Study observation (narrative) [facility] XR Chest PA and LateralOrder ed By: Ccf Provider on 08-10-2020 [facility] Vital Signs Date Time Vital Sign Value Performing Clinician Faci [facility] 08-31-2024 12:22-0400 Body height 170.[address] Joleen Rice MD Work Phone: [facility] 08-31-2024 12:22-0400 Body mass index (BMI) [Ratio] 26.8 kg/m2 Dr. Joleen Rice MD Work Phone: [facility] 08-31-2024 12:22-0400 Body weight 77.[address] Joleen Rice MD Work Phone: [facility] 08-31-2024 12:22-0400 Diastolic blood pressure 69 mm[Hg] Dr. Joleen Rice MD Work Phone: [facility] 08-31-2024 12:22-0400 Systolic blood pressure 106 mm[Hg] Dr. Joleen Rice MD Work Phone: [facility] 07-14-2024 10:08-0400 Body height 170.[address] Joleen Rice MD Work Phone: 3(673)431-269823 [place] [address] 07-14-2024 10:08-0400 Body mass index (BMI) [Ratio] 26.9 kg/m2 Dr. Joleen Rice MD Work Phone: 8(028)259-095329 [place] [address] 07-14-2024 10:08-0400 Body temperature 97.6 [degF] Dr. Joleen Rice MD Work Phone: 7(483)462-161029 [place] [address] 07-14-2024 10:08-0400 Body weight 78.[address] Joleen Rice MD Work Phone: 7(530)887-296629 [place] [address] 07-14-2024 10:08-0400 Diastolic blood pressure 72 mm[Hg] Dr. Joleen Rice MD Work Phone: 6(842)681-498129 [place] [address] 07-14-2024 10:08-0400 Heart rate 82 /min Dr. Joleen Rice MD Work Phone: 5(569)515-176429 [place] [address] 07-14-2024 10:08-0400 Respiratory rate 17 /min Dr. Joleen Rice MD Work Phone: 4(864)601-827829 [place] [address] 07-14-2024 10:08-0400 SaO2% (BldA) [Mass fraction] 99 % Dr. Joleen Rice MD Work Phone: 0(893)221-225029 [place] [address] 07-14-2024 10:08-0400 Systolic blood pressure 124 mm[Hg] Dr. Joleen Rice MD Work Phone: 6(134)586-595929 [place] [address] 06-15-2024 09:19-0400 Body height 172 cm Joleen Rice MD Work Phone: 9(360)435-691216 [place] [address] 06-15-2024 09:19-0400 Body mass index (BMI) [Ratio] 25.97 kg/m2 Joleen Rice MD Work Phone: [facility] 06-15-2024 09:19-0400 Body weight 76.84 kg Joleen Rice MD Work Phone: 4(057)459-524916 [place] [address] 06-15-2024 09:19-0400 Diastolic blood pressure 74 mm[Hg] Joleen Rice MD Work Phone: [facility] 06-15-2024 09:19-0400 Heart rate 92 /min Joleen Rice MD Work Phone: [facility] 06-15-2024 09:19-0400 SaO2% (BldA) [Mass fraction] 98 % Joleen Rice MD Work Phone: [facility] 06-15-2024 09:19-0400 Systolic blood pressure 122 mm[Hg] Joleen Rice MD Work Phone: [facility] 04-15-2023 13:39-0500 Body temperature 97.9 [degF] Robert Corcoran MD Work Phone: [facility] 04-15-2023 13:39-0500 Body weight 74.84 kg Robert Corcoran MD Work Phone: [facility] 04-15-2023 13:39-0500 Diastolic blood pressure 82 mm[Hg] Robert Corcoran MD Work Phone: [facility] 04-15-2023 13:39-0500 Heart rate 82 /min Robert Corcoran MD Work Phone: [facility] 04-15-2023 13:39-0500 Respiratory rate 18 /min Robert Corcoran MD Work Phone: [facility] 04-15-2023 13:39-0500 SaO2% (BldA) [Mass fraction] 100 % Robert Corcoran MD Work Phone: [facility] 04-15-2023 13:39-0500 Systolic blood pressure 120 mm[Hg] Robert Corcoran MD Work Phone: [facility] 07-20-2022 15:14-0400 Body height 170.[address] Joleen Rice Work Phone: [facility] 07-20-2022 15:04-0400 Body mass index (BMI) [Ratio] 25.5 kg/m2 Dr. Joleen Rice Work Phone: [facility] 07-20-2022 15:04-0400 Body weight 73.[address] Joleen Rice Work Phone: 1(205)214-584454 [place] [address] 07-20-2022 15:04-0400 Diastolic blood pressure 70 mm[Hg] Dr. Joleen Rice Work Phone: [facility] 07-20-2022 15:04-0400 Systolic blood pressure 108 mm[Hg] Dr. Joleen Rice Work Phone: 6(799)330-205623 [place] [address] 07-30-2021 17:24-0400 Body height 168.9 cm Joleen Rice MD Work Phone: [facility] 07-30-2021 17:24-0400 Body temperature 97 [degF] Joleen Rice MD Work Phone: [facility] 07-30-2021 17:24-0400 Body weight 76.66 kg Joleen Rice MD Work Phone: [facility] 07-30-2021 17:24-0400 Diastolic blood pressure 60 mm[Hg] Joleen Rice MD Work Phone: [facility] 07-30-2021 17:24-0400 Heart rate 76 /min Joleen Rice MD Work Phone: [facility] 07-30-2021 17:24-0400 Respiratory rate 12 /min Joleen Rice MD Work Phone: [facility] 07-30-2021 17:24-0400 SaO2% (BldA) [Mass fraction] 97 % Joleen Rice MD Work Phone: [facility] 07-30-2021 17:24-0400 Systolic blood pressure 106 mm[Hg] Joleen Rice MD Work Phone: [facility] Encounters Encounter Date Encounter Type Care Provider Facility Start: 08-31-2024 Encounter for gynecological examination (general) (routine) without abnormal findings Farideh Christian [facility] Start: 08-31-2024 End: 08-31-[address] Farideh Christian MD [facility] Start: 08-31-2024 End: 08-31-[address] Farideh Christian MD -[facility] Work Phone: Start: 08-31-2024 End: 08-31-[address] Joleen Rice MD Work Phone: -[facility] Start: 07-14-2024 End: 07-14-[address] Chris Coats MD -[facility] Work Phone: Start: 07-14-2024 End: 07-14-[address] Joleen Rice MD Work Phone: [facility] Work Phone: Start: 07-04-2024 End: 08-04-2024 ambulatory Joleen Rice MD Work Phone: [facility] [place] Start: 06-26-2024 End: 08-26-2024 Follow-up encounter Joleen Rice MD Work Phone: [facility] [place] Start: 06-23-2024 End: 08-23-2024 Follow-up encounter Joleen Rice MD Work Phone: [facility] [place] Start: 06-22-2024 End: 06-22-2024 ambulatory JOLEEN RICE Facility:[facility] Start: 06-15-2024 End: 06-15-2024 Office outpatient new 45 minutes Joleen Rice MD Work Phone: [facility] [place] Comment on above: Annual physical exam (Primary Dx); Generalized anxiety disorder; Major depressive disorder, single episode, in partial remission; Vitamin B12 deficiency; Weight gain; Fatigue, unspecified type; Iron deficiency; LLQ pain Start: 06-15-2024 End: 06-15-2024 ambulatory JOLEEN RICE Facility:[facility] Start: 06-15-2024 End: 06-15-2024 Patient encounter procedure Joleen Rice MD Work Phone: [facility] Start: 02-18-2024 End: 02-18-2024 Patient encounter procedure Immunization [facility] Nurse [place] Work Phone: [facility] Comment on above: Arrived Start: 02-18-2024 End: 02-18-2024 ambulatory Immunization Clinic Nurse Campos Work Phone: [facility] Start: 08-04-2023 ambulatory Joleen Adams Work Phone: Internal [facility] Start: 05-03-2023 End: 05-03-2023 ambulatory [facility] Work Phone: Start: 05-03-2023 End: 05-03-2023 Discharged Recurring [facility] Work Phone: Start: 04-15-2023 End: 04-15-2023 Patient encounter procedure Robert Corcoran MD Work Phone: [facility] Comment on above: Contact dermatitis, unspecified contact dermatitis type, unspecified trigger (Primary Dx) Start: 12-12-2022 End: 12-12-2022 ambulatory Immunization Clinic Nurse Campos Work Phone: [facility] Start: 08-26-2022 ambulatory Joleen Adams Work Phone: [facility] Start: 07-20-2022 End: 07-20-[address] Joleen Rice Work Phone: [facility] Work Phone: Start: 07-20-2022 End: 07-20-[address] Joleen Rice Work Phone: [facility] Start: 03-05-2022 End: 03-05-2022 Patient encounter procedure Nurse [facility] [place] Comment on above: Encounter for immuni zation (Primary Dx) Start: 09-30-2021 ambulatory Adalgisa sandoval APRN.CNP Work Phone: [facility] Start: 08-05-2021 Telephone encounter Joleen parmar MD Work Phone: [facility] [place] Comment on above: Results Start: 07-30-2021 End: 07-30-2021 Patient encounter procedure Joleen Rice MD Work Phone: [facility] [place] Comment on above: Annual physical exam (Primary Dx); Bilateral carpal tunnel syndrome; Headaches; Dyslipidemia Start: 08-10-2020 End: 08-10-2020 Subsequent hospital visit by physician Celia [facility] [place] Work Phone: Radiology Comment on above: [...] Adult depression scr eening assessment Adalgisa [place] WHIPPED TOPPING SUPERVISOR.LICENSED APPRAISER Work Phone: Start: 07-30-2021 Adult depression scr eening assessment Joleen Rice MD Work Phone: Start: 08-10-2020 Radiologic exam ches t 2 views Adalgisa Tatum WHIPPED TOPPING SUPERVISOR.LICENSED APPRAISER Work Phone: Plan of Treatment Date Care Activity Detail Author Start: 01-31-2030 Urine microalbumin profile [facility] Start: 07-21-2027 HPV TESTING HPV TESTING [facility] Start: 07-21-2027 PAP TESTING PAP TESTING [facility] Start: 07-21-2027 Screening for malign ant neoplasm of cervix [facility] Start: 07-20-2025 Screening for malign ant neoplasm of cervix Cervical Cancer Screening [facility] Start: 04-19-2025 PAP TESTING PAP TESTING [facility] Start: 09-18-2024 End: 09-18-2024 Patient encounter procedure 09/18/2024 1:40 PM EDT Office Visit [facility] [place] [address] [facility] [place] [address] Joleen Rice MD [address] [place] [address] 3 month follow up [facility] [place] Comment on above: 3 month follow up Start: 06-22-2024 End: 06-22-2024 Patient encounter procedure 06/22/2024 9:15 AM EDT Appointment Radiology [address] [place] [address] LLQ pain [R10.32] Radiology Comment on above: LLQ pain [R10.32] Start: 06-15-2024 End: 09-14-2024 CBC W Auto Differential panel - Blood COMPLETE BLOOD COUNT AND DIFFERENTIAL Lab Routine Annual physical exam Expected: 06/15/2024, Expires: 09/14/2024 [facility] Comment on above: Expected: 06/15/2024 , Expires: 09/14/2024 Start: 06-15-2024 End: 09-14-2024 Cobalamin (Vitamin B12) [Mass/volume] in Serum or Plasma VITAMIN B12 Lab Routine Vitamin B12 deficiency Expected: 06/15/2024, Expires: 09/14/2024 [facility] Comment on above: Expected: 06/15/2024 , Expires: 09/14/2024 Start: 06-15-2024 End: 09-14-2024 Comprehensive metabolic 2000 panel - Serum or Plasma COMPREHENSIVE METABOLIC PANEL Lab Routine Annual physical exam Expected: 06/15/2024, Expires: 09/14/2024 [facility] Comment on above: Expected: 06/15/2024 , Expires: 09/14/2024 Start: 06-15-2024 End: 09-14-2024 Ferritin [Mass/volume] in Serum or Plasma FERRITIN Lab Routine Iron deficiency Expected: 06/15/2024, Expires: 09/14/2024 [facility] Comment on above: Expected: 06/15/2024 , Expires: 09/14/2024 Start: 06-15-2024 End: 09-14-2024 Iron and Iron binding capacity panel - Serum or Plasma IRON AND TIBC Lab Routine Iron deficiency Expected: 06/15/2024, Expires: 09/14/2024 [facility] Comment on above: Expected: 06/15/2024 , Expires: 09/14/2024 Start: 06-15-2024 End: 09-14-2024 Lipid 1996 panel - Serum or Plasma LIPID PANEL, FASTING Lab Routine Annual physical exam Expected: 06/15/2024, Expires: 09/14/2024 [facility] Work Phone: Comment on above: Expected: 06/15/2024 , Expires: 09/14/2024 Start: 06-15-2024 End: 09-14-2024 Thyrotropin [Units/volume] in Serum or Plasma THYROID STIMULATING HORMONE Lab Routine Weight gain Fatigue, unspecified type Expected: 06/15/2024, Expires: 09/14/2024 [facility] Comment on above: Expected: 06/15/2024 , Expires: 09/14/2024 Start: 10-31-2023 Covid-19 Vaccine ( season) Covid-19 Vaccine () [facility] Start: 10-31-2023 Influenza vaccination Influenza Vacc ine (#1) [facility] Start: 03-01-2023 Behavioral Health Screening Behavioral Health Screening [facility] Start: 03-01-[address] [facility] Start: 10-30-2022 Covid-19 Vaccine ( season) Covid-19 Vaccine ( season) [facility] Start: 09-29-2022 Adult depression screening assessment DEPRESSION SCREENING [facility] Start: 07-30-2022 Adult depression screening assessment DEPRESSION SCREENING [facility] Start: 07-20-2022 Liquid based cervica l cytology screening [facility] Start: 2022 Mammography [facility] Start: 2022 Screening for malign ant neoplasm of breast Mammogram Screening [facility] Start: 03-01-2022 DEPRESSION ASSESSMENT DEPRESSION ASS ESSMENT [facility] Start: 10-30-2021 Influenza vaccination INFLUENZA (#1) [facility] Start: 07-30-2021 End: 09-29-2021 INSULIN LIK GR FAC I INSULIN LIK GR FAC I Lab Routine Headaches Expected: 07/30/2021, Expires: 09/29/2021 [facility] Work Phone: Comment on above: Expected: 07/30/2021 , Expires: 09/29/2021 Start: 2012 HPV TESTING HPV TESTING [facility] Start: 2000 Anxiety Screening Anxiety Screening [facility] Start: 2000 Depression Screening Depression Scre ening [facility] Start: 2000 HEPATITIS C SCREENING HEPATITIS C [facility] Start: 2000 Hepatitis C screening Hepatitis C Sc [facility] Start: 2000 HIV SCREENING HIV SCREENING [facility] Start: 2000 HIV screening HIV Screening [facility] Start: 07-18-1987 COVID-19 VACCINE (#1) COVID-19 VACCI NE (#1) [facility] Start: 01-17-1983 COVID-19 VACCINE (#1) COVID-19 VACCI NE (#1) [facility] End: 08-03-2025 DBT Breast - bilateral screening JG SCREENING W LINDEN Radiology Routine Encounter for screening mammogram for breast cancer 1 Occurrences starting 07/04/2024 until 08/03/2025 [facility] Work Phone: Comment on above: 1 Occurrences starti ng 07/04/2024 until 08/03/2025 End: 09-25-2023 JG SCREENING JG SCREENING Radiology Routine Encounter for screening mammogram for breast cancer 1 Occurrences starting 08/26/2022 until 09/25/2023 [facility] Work Phone: Comment on above: 1 Occurrences starti ng 08/26/2022 until 09/25/2023 End: 09-02-2024 MG Breast Screening JG SCREENING Radiology Routine Encounter for screening mammogram for breast cancer 1 Occurrences starting 08/04/2023 until 09/02/2024 [facility] Work Phone: Comment on above: 1 Occurrences starti ng 08/04/2023 until 09/02/2024 Path report.final Dx Spec [facility] End: 07-15-2025 US Pelvis limited US FEMALE PELVIS TRANSABD LTD Radiology Routine LLQ pain 1 Occurrences starting 06/15/2024 until 07/15/2025 [facility] Comment on above: 1 Occurrences starti ng 06/15/2024 until 07/15/2025 End: 07-15-2025 US Pelvis transvaginal US FEMALE PELVIS TRANSVAG Radiology Routine LLQ pain 1 Occurrences starting 06/15/2024 until 07/15/2025 [facility] Comment on above: 1 Occurrences starti ng 06/15/2024 until 07/15/2025 [facility] Immunizations Immunization Date Immunization Notes Care Provider Janett sloan 02-18-2024 influenza, seasonal, injectable Immunization [place] Work Phone: [facility] 12-12-2022 influenza, injectabl e, quadrivalent, contains preservative Immunization [place] Work Phone: [facility] 12-12-2022 influenza virus vaccine, unspecified formulation Xr [place] Work Phone: [facility] 03-05-2022 influenza, injectabl e, quadrivalent, preservative free Nurse Iliff [facility] Work Phone: 12-26-2020 influenza, injectabl e, quadrivalent, contains preservative Joleen Rice MD Work Phone: [facility] Work Phone: 02-01-2020 tetanus toxoid, reduced diphtheria toxoid, and acellular pertussis vaccine, adsorbed Joleen Rice MD Work Phone: [facility] 12-30-2019 influenza, seasonal, injectable Joleen Rice MD Work Phone: [facility] 08-13-2017 tetanus toxoid, reduced diphtheria toxoid, and acellular pertussis vaccine, adsorbed Joleen Rice MD Work Phone: [facility] 12-21-2015 influenza, injectabl e, quadrivalent, contains preservative Joleen Rice MD Work Phone: [facility] 07-19-2015 hepatitis B vaccine, adult dosage Joleen Rice MD Work Phone: [facility] 02-15-2015 hepatitis B vaccine, adult dosage Joleen Rice MD Work Phone: [facility] 01-11-2015 hepatitis B vaccine, adult dosage Joleen Rice MD Work Phone: [facility] 01-10-2015 influenza, injectabl e, quadrivalent, contains preservative Joleen Rice MD Work Phone: [facility] 08-15-2012 tetanus toxoid, reduced diphtheria toxoid, and acellular pertussis vaccine, adsorbed Joleen Rice MD Work Phone: [facility] Payers Date Payer Category Payer Self-pay [id number] 2022 Unknown [id number] 2022 Medicaid [id number] 2018 Unknown [employer] P[employer] [id number] 2018-Present [phone] [address] [place] [address] PPO [id number] 2018 Unknown [employer] PPO [id number] 2018-2022 [address] [place] [address] PPO [id number] Unknown [id number] Unknown [id number] Unknown [id number] Social History Date Type Detail Facility Start: 06-08-2016 End: 07-22-2023 Tobacco smoking status NHIS Never smoked tobacco [facility] Work Phone: Start: 07-30-2021 End: 04-15-2023 Alcohol intake Current drinker of alcohol (finding) [facility] Start: 2020 History SDOH Alcohol Binge 1 [facility] Start: 2020 History SDOH Social Connections Phone 2 [facility] Start: 2020 History SDOH Social Connections Get Together 4 [facility] Start: 2020 History SDOH Social Connections Jain 3 [facility] Start: 2020 History SDOH Physical Activity MPS 6 [facility] Start: 2020 Education 17 [facility] Start: 1980 Sex Assigned At Female [facility] Start: 07-11-2020 End: 08-07-2021 Exposure to SARS-CoV-2 (event) Not sure [facility] Work Phone: Start: 06-08-2016 End: 04-15-2023 Tobacco use and exposure Smokeless tobacco non-user [facility] Start: 07-20-2022 End: 10-18-2022 Tobacco smoking status NHIS Unknown if ever smoked [facility] Start: 2020 End: 12-12-2022 History of Social function [facility] Start: 2020 End: 12-12-2022 Social connection and isolation panel [facility] Do you belong to any clubs or organizations such as pentecostalism groups, unions, fraternal or athletic groups, or school groups? Yes [facility] Are you now , , , , never or living with a partner? [facility] Frequency of Alcohol Consumption Not on file [facility] How often do you hav e 6 or more drinks on 1 occasion? Never [facility] How hard is it for y ou to pay for the very basics like food, housing, medical care, and heating Not very hard [facility] Do you feel stress - tense, restless, nervous, or anxious, or unable to sleep at night because your mind is troubled all the time - these days [OSQ] To some extent [facility] (I/We) worried wheindra er (my/our) food would run out before (I/we) got money to buy more. Never true [facility] At any time in the p ast 12 months, were you homeless or living in correction [including now]? No [facility] Start: 07-09-2020 Gender identity Identifies as female gender (finding) [facility] Start: 07-09-2020 Sexual orientation Heterosexual (finding) [facility] Medical Equipment Procedure Code Equipment Code Equipment Origin al Text Equipment Identifier Dates MESH,VENTLEX ST ,LG 8CM FDA Start: 10-07-2017 MESH,VENTLEX ST ,LG 8CM FDA Start: 10-07-2017 MESH,VENTLEX ST ,LG 8CM FDA Start: 10-07-2017 MESH,VENTLEX ST ,LG 8CM FDA Start: 10-07-2017 Clinical Notes 08-10-2020 to 08-31-2024 Note Date & Type Note Facility 08-31-2024 Progress note [facility] 08-31-2024 Progress note Note Date/Time August 31, 2024 2:09pm [facility] [address], [address] [place] [address] OFFICE VISIT Date of Service: 08/31/24 MR#: [id number] Acct: [id number] Name: DOV BLACKMON Rep #: [id number] : 1980 Provider: Dr. 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: No Is patient in pain?: No Allergies Penicillins Allergy (Intermediate, Verified 08/31/24 13:29) Rash Medications ?Medication ?Instructions ?Recorded ?Confirmed ?Type lactobacillus combination no.8 3 1 cap PO QDAY supplem ent 03/03/17 08/31/24 History billion cell capsule (Adult Probiotic) loratadine 10 mg tablet (Claritin) 10 mg PO QDAY PRN a llergy symptoms 03/03/17 08/31/24 History prenat.vits,annel,qxg-jpln-ilnnw 1 tab PO QDAY SUPPLEMEN T 03/03/17 [...] menopausal: No Patient : No : No [facility] Medical History (Updated 08/31/24 @ 13:56 [...] Female less than 24 hours epidural [facility] Misha Unknown 11/01/2012 Delmont 39 live - full term 8lbs 6oz Male less than 24 hours epidural [facility] Alverto Cabral Unknown 08/30/2017 Deyanira 37 live - full term 7 lbs Fe male 9 hours epidural [facility] Cabral 02/27/20 Dileep 40 live - full term Male [facility] Shukri Delivery Date: 02/27/20 Last Updated by: [...] acute distress, well developed and well groomed HENPR Head: normal to inspection and normocephalic Ears: [...] maintenance exam or sooner if needed. 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 acute August 31, 2024 1 :21pm Generalized anxiety disorder acute August 31, 2024 1:21pm Encounter for routine gynecological examination noneactive August 312024 1:21pm [facility] Work Phone: 1(840) 853-834905-06-2025 NotePatient Outreach (INTMWS) DOV BLACKMON ([id number]) 1980 F Date Time Provider Department 07/04/24 [...] breast cancer [Z12.31] Order(s):JG SCREENING W LINDEN [[id number]] Order #: [id number] FUTURE Prescriptions as of 08/04/2024 - venlafaxine [...] colonic polyps [Z83.719] 09/13/2015 Encounter Status:Closed by [employer], [employer]USER on 08/04/24[facility] 06-22-2024 NoteHNO ID: [id number] Author: YANET BOLIVAR RDMS Service: ? Author Type: [facility] [employer] Type: Progress Notes Filed: 06/22/2024 13:45 Note [...] PATIENT PRESENTS WITH AN IMPLANTABLE OR ATTACHED SERVICE DEPARTMENT MANAGER: No RADIOLOGY DEPARTMENT: Ultrasound PERIPHERAL IV DATA: Not applicable SIGNED BY: Yanet Bolivar RDMS RVT June 22, 2024 1:45 [facility]04-17-2025 Instructions* Patient Instructions* Joleen Rice MD - [...] lifestyle habits. - Follow up with your OB-HAND WRAPPER OPERATOR as planned in a couple of months to review your medications and overall health. Please reach out if you have any new concerns or need further assistance. Please consider Yoga. documented in this encounterC[facility]25 NoteHNO ID: [id number] Author: JOLEEN RICE MD Service: ? Author [...] of Effexor and BuSpar. - Follow-up with OB-HAND WRAPPER OPERATOR in a couple of months to reassess medication efficacy and dosage. - Provided support and counseling during the visit, acknowledging the patient's current life stressors. Voice recognition software was used to compose this office note. Please excuse any unintended typographical errors. Recording using ambient [employer] Analysis software for draft documentation of the visit was discussed with the patient/authorized leather goods sales representative; all questions welcomed and answered. Patient/authorized leather goods sales representative agreed to proceed Joleen Rice [facility]04-17-2025 History of Present illness Narrative* Joleen [...] of Effexor and BuSpar. - Follow-up with OB-HAND WRAPPER OPERATOR in a couple of months to reassess medication efficacy and dosage. - Provided support and counseling during the visit, acknowledging the patient's current life stressors. Voice recognition software was used to compose this office note. Please excuse any unintended typographical errors. Recording using ambient [employer] Analysis software for draft documentation of the visit was discussed with the patient/authorized leather goods sales representative; all questions welcomed and answered. Patient/authorized leather goods sales representative agreed to proceed Joleen Rice MD documented in this encounterC[facility] Discharge summary Author Keyla Bailon [facility] May 03, 2023 12:01pm Note Date/Time May 03, 2023 12:0 1pm [facility] Physical Therapy [facility] [address] [place] [address] / REHABILITATION SERVICES DISCHARGE SUMMARY MR#: [id number] Acct: [id number] Name: DOV BLACKMON Rep #: [id number] : 1980 42 From: Keyla Bailon MP T Referring Dr.: MIRIAM Peña Status: REG R Insurance: [facility] SELF PAY INSURANCE Discharge Summary D/C summary: [...] please feel free to call me at [phone]. Thank you for the referral of thispatient. Sincerely, Keyla Bailon, MARY Balance/Gait/Functional tests Balance/Special Test Scores Lower Extremity Functional Score: 63 Improvement % Improvement: 90 <Electronically signed by Keyla Bailon MPT> 05/03/23 1201 CC: MIRIAM Peña; No Primary Care Physician ~ Signed [facility] Work Phone: 1(326) 439-689302-15-2024 History of Present illness Narrative* Robert Corcoran [...] rash. Robert Corcoran MD documented in this encounterC[facility]08-[facility]22 History of Present illness Narrative* Oneyda Negrete RN - 09/30/2021 11:39 AM EDT [facility] Questionnaire Series Follow-up Follow-up: 12 months Call attempt: 3rd Attempt Call status: Left message Next call date: 10/02/2021 documented in this [facility]06-09-2022 Miscellaneous Notes* Telephone Encounter - Lisaradha Hoang [...] stopped the Biotin. She was transferred to regulator operator to schedule apt with Endo. Lucita Cr [...] Biotin 5000 mcg daily, vitamin one daily, Hanna 3, 2000 mg one daily, Zinc one [...] advise, Harika Parisi RN documented in this encounterC[facility]06-01-[facility]22 History of Present illness Narrative* Joleen [...] medication. Joleen Rice MD documented in this encounterC[facility]06-12-2021 History of Present illness Narrative* Zaheer Velasquez RT(R) - 08/10/2020 8:50 AM EDT Radiology Service Progress Note PATIENT NAME: Dov Blackmno DATE OF SERVICE: August 10, 2020 TIME: [...] 10, 2020 8:56 AM [facility]* Diagnosis Annual physical exam- Primary Routine general medical examination at a health care facility Bilateral carpal tunnel syndrome Carpal tunnel syndrome Headaches Dyslipidemia Other and unspecified hyperlipidemia documented in this encounter [facility] note* Diagnosis Elevated growth hormone (GH) level- Primary Unspecified endocrine disorder documented in this encounter [facility] note* Diagnosis Encounter for immunization- Primary Need for other specified prophylactic vaccination against single bacterial disease documented in this encounter [facility] note* Diagnosis Onset Date Resolution Status Generalized anxiety disorder acute Encounter for routine gynecological examination noneactive [facility] Work Phone: Evaluation note* Diagnosis Encounter for screening mammogram for breast cancer documented in this encounter [facility] note* Diagnosis Contact dermatitis, unspecified contact dermatitis type, unspecified trigger- Primary documented in this encounter [facility] noteNo assessment information availableWGenesis [facility] Work Phone: Evaluation note* Diagnosis Encounter for screening mammogram for breast cancer documented in this encounter [facility] note* Diagnosis Intermittent chest pain Chest pain, unspecified Change in voice Other voice and resonance disorders Post-acute sequelae of COVID-19 (PASC) Parosmia Disturbances of sensation of smell and taste Anosmia Disturbances of sensation of smell and taste Arthralgia, unspecified joint Cold extremities [facility] this encounter [facility]* Diagnosis Annual physical exam- Primary Routine [...] left lower quadrant documented in this encounter [facility] note* Diagnosis Encounter for screening mammogram for breast cancer documented in this encounter [facility] for referral (narrative)* Diagnostic Procedure Only (Routine) - Pending Review Specialty Diagnoses / Procedures Referred By Jesenia roman Referred To Contact [facility] Diagnoses Encounter for screening mammogram for breast cancer Procedures JG SCREENING SCREENING MAMMOGRAPHY BI 2-VIEW BREAST INC Joleen Valdez MD [address] [place] [address] [facility] [address] [place] [address] Referral ID Status Reason Start Date Expiration Date Visits Requested Visits Authorized [id number] Pending Review Auto-Generat ed Referral 08/26/2022 09/25/2023 1 1 [facility] for referral (narrative)* Diagnostic Procedure Only (Routine) - Pending Review Specialty Diagnoses / Procedures Referred By Jesenia roman Referred To Contact [facility] Diagnoses Encounter for screening mammogram for breast cancer Procedures JG SCREENING SCREENING MAMMOGRAPHY BI 2-VIEW BREAST INC Joleen Valdez MD [address] [place] [address] [facility] [address] [place] [address] Referral ID Status Reason Start Date Expiration Date Visits Requested Visits Authorized [id number] Pending Review Auto-Generat ed Referral 08/04/2023 09/02/2024 1 1 [facility] (narrative)No reason for referral information availableFour [facility] Counsel[facility] Work Phone: Advance Directives No Advanced Directives Records FoundDocuments on File Type Date Recorded Patient Dining Manager Expl anation Advance Directive(s) 09/13/2015 3:11 PM Documents on File Type Date Recorded Patient Dining Manager Expl anation Advance Directive(s) 09/13/2015 3:11 PM Advance Directive Response Recorded Date/ Time Living Will No February 26, 2 020 2:04pm Power of Vanstone Machine Operator No February 27, 2020 2:04pm Advance Directive Response Recorded Date/ Time Living Will No October 18 7:27pm Power of [place]stone Machine Operator No October 18 023 7:27pm Reason for Referral Specialty Diagnoses / Procedures Referred By Jesenia roman Referred To Contact Endocrinology Diagnoses Elevated growth hormone (GH) level Procedures CONSULT TO ENDOCRINOLOGY OFFICE/OUTPATIENT [facility] 60-74 MINUTES Joleen Rice MD [address] [place] [address] Referral ID Status Reason Start Date Expiration Date Visits Requested Visits Authorized [id number] Authorized PCP Requested Referral 08/05/2021 08/05/2022 1 1 Chief Complaint and Reason for Visit Chief Complaint SCREENING Annual (HAND WRAPPER OPERATOR) Reason for Visit Generalized anxiety disorder Encounter for routine gynecological examination Chief Complaint RT ACHILLES TENDINIT IS/RX HERE Chief Complaint Admit Date SELF REFERRED LUMP UNDER BELLY BUTTON Ma y 2024 9:59am Chief Complaint Admit Date SELF REFERRED LUMP UNDER BELLY BUTTON Ma y 2024 9:59am screening for breast cancer August 31 12:46pm Annual (HAND WRAPPER OPERATOR) August 31, 2024 1:21p m Reason for [...] or prosecute any alcohol or drug abuse patient.[facility] HospitalIn the event this information is protected by the Federal Confidentiality of Alcohol and Drug Abuse Patient Records regulations: The Federal rules restrict any use of the information to criminally investigate or prosecute any alcohol or drug abuse patient.[facility] HospitalIn the event this information is protected by the Federal Confidentiality of Alcohol and Drug Abuse Patient Records regulations: The Federal rules restrict any use of the information to criminally investigate or prosecute any alcohol or drug abuse patient.[facility] HospitalIn the event this information is protected by the Federal Confidentiality of Alcohol and Drug Abuse Patient Records regulations: The Federal rules restrict any use of the information to criminally investigate or prosecute any alcohol or drug abuse patient.[facility] HospitalIn the event this information is protected by the Federal Confidentiality of Alcohol and Drug Abuse Patient Records regulations: The Federal rules restrict any use of the information to criminally investigate or prosecute any alcohol or drug abuse patient.[facility] HospitalIn the event this information is protected by the Federal Confidentiality of Alcohol and Drug Abuse Patient Records regulations: The Federal rules restrict any use of the information to criminally investigate or prosecute any alcohol or drug abuse patient.[facility] HospitalIn the event this information is protected by the Federal Confidentiality of Alcohol and Drug Abuse Patient Records regulations: The Federal rules restrict any use of the information to criminally investigate or prosecute any alcohol or drug abuse patient.[facility] HospitalIn the event this information is protected by the Federal Confidentiality of Alcohol and Drug Abuse Patient Records regulations: The Federal rules restrict any use of the information to criminally investigate or prosecute any alcohol or drug abuse patient.[facility] HospitalIn the event this information is protected by the Federal Confidentiality of Alcohol and Drug Abuse Patient Records regulations: The Federal rules restrict any use of the information to criminally investigate or prosecute any alcohol or drug abuse patient.[facility] HospitalIn the event this information is protected by the Federal Confidentiality of Alcohol and Drug Abuse Patient Records regulations: The Federal rules restrict any use of the information to criminally investigate or prosecute any alcohol or drug abuse patient.[facility] HospitalIn the event this information is protected by the Federal Confidentiality of Alcohol and Drug Abuse Patient Records regulations: The Federal rules restrict any use of the information to criminally investigate or prosecute any alcohol or drug abuse patient.[facility] HospitalIn the event this information is protected by the Federal Confidentiality of Alcohol and Drug Abuse Patient Records regulations: The Federal rules restrict any use of the information to criminally investigate or prosecute any alcohol or drug abuse patient.[facility] the event this information is protected by the Federal Confidentiality of Alcohol and Drug Abuse Patient Records regulations: The Federal rules restrict any use of the information to criminally investigate or prosecute any alcohol or drug abuse patient.[facility] the event this information is protected by the Federal Confidentiality of Alcohol and Drug Abuse Patient Records regulations: The Federal rules restrict any use of the information to criminally investigate or prosecute any alcohol or drug abuse patient.[facility] Reason for Visit (unrecogniz ed section and content) Reason Comments Established Patient physical Reason Comments Results Reason Comments Rash Bilateral arms x1 we ek, started on L bicep Reason Comments Physical physical Care Teams (unrecognized sec tion and content) [employer] Relationship Specialty Start Date End Date Joleen Rice MD [address] [place], [place] [id number] PCP - General Internal Medicine 08/19/20 [employer] Relationship Specialty Start Date End Date Joleen Rice MD [address], [place] [id number] PCP - General Internal Medicine 08/19/20 [employer] Relationship Specialty Start Date End Date Joleen Rice MD [address] [place] [address] PCP - General Internal Medicine 08/19/20 [employer] Relationship Specialty Start Date End Date Joleen Rice MD [address] [place] [address] PCP - General Internal Medicine 08/19/20 Team [...] MD Attending Provider, Referr ing Provider Active [employer] Relationship Specialty Start Date End Date Joleen Rice MD [address] [place] [address] PCP - General Internal Medicine 08/19/20 [employer] Relationship Specialty Start Date End Date Joleen Rice MD [address] [place] [address] PCP - General Internal Medicine 08/19/20 [employer] Relationship Specialty Start Date End Date Joleen Rice MD [address] [place] [address] PCP - General Internal Medicine 08/19/20 Team Status: Active Member Role Status Dates No Primary Care Physician Family Provider Active No Primary Care Physician Primary Care Provider Active Team Status: Inactive Member Role Status Dates No Primary Care Physician Primary Care Provider Active Dr. Pato Peña DPM Attending Provider, Referri ng Provider Active [employer] Relationship Specialty Start Date End Date Joleen Rice MD [address] [place] [address] PCP - General Internal Medicine 08/19/20 [employer] Relationship Specialty Start Date End Date Joleen Rice MD [address] [facility], [place] [id number] PCP - General Internal Medicine 08/19/20 Kristal Cueva PA-C [address] [place] [id number] Director Of Manufacturing Family Medicine 02/06/24 Lisa Hoang APRN.LICENSED APPRAISER [address] [facility] [place] [address] Director Of Manufacturing Internal Medicine 02/06/24 Regine Lyman PA-C [address] [place] [address] Director Of Manufacturing Family Medicine 02/06/24 [employer] Relationship Specialty Start Date End Date Joleen Rcie MD [address] [place] [address] PCP - General Internal Medicine 08/19/20 Lisa Hoang APRN.LICENSED APPRAISER [address] [facility] [place] [address] Director Of Manufacturing Internal Medicine 02/06/24 Team Status: Active Member [...] July 14, 2024 End: July 14, 2024 [employer] Relationship Specialty Start Date End Date Joleen Rice MD [address] [place] [address] PCP - General Internal Medicine 08/19/20 Older, LING GonzalezN.LICENSED APPRAISER [address] [place] [address] Director Of Manufacturing Internal Medicine 02/06/24 [employer] Relationship Specialty Start Date End Date Joleen Rice MD [address] [place] [address] PCP - General Internal Medicine 08/19/20 Older, Lisa [employer] SUPERVISOR.LICENSED APPRAISER [address] [facility] [place] [address] Director Of Manufacturing Internal Medicine 02/06/24 Team Status: Active Member [...] Active Start: August 31, 2024 Dr. Joleen Rice MD [...] section and content) DATE CREATED AUTHOR 08/05/2024 [facility] DATE CREATED AUTHOR CAROLYN PETERS 08/31/2024 [facility] FOR RECORDS PERTAINING TO PATIENTS [...] BE BASED ON THE PRIMARY CLINICAL RECORDS. [employer] provides no warranty or guarantee of the accuracy or completeness of information in this document.
== END | disposition home or self-care (01) ==
LOC: OPBI 12:56
PROVIDERS: PCP Internal Medicine; Referring Provider Obstetrics & Gynecology; Visit Provider Obstetrics & Gynecology
DX: Z12.31 Encounter for screening mammogram for malignant neoplasm of breast (principal)
CPT/HCPCS: 77063; 77067